=== PATIENT | male | born 1990 | race Caucasian/White ===

== ENCOUNTER 2017-03-04 13:13 | Emergency (ER) | payer MEDICARE ==
--- NOTE | 2017-03-04 13:44 | ER Document Report ---
ED Medical Screen (RME) - General Chief Complaint: Abdominal Pain Stated Complaint: SIDE PAIN/SWELLING Time Seen by Provider: 03/04/17 13:42 Notes: Patient is concerned he may be rejecting his kidney transplant that was performed 18 months ago. He is having some headache and noted swelling of his lower extremities for the past 3 days. He is also noted his blood pressure is somewhat higher than normal for the past week. He was taken care of at the [facility], but recently has moved to this area. He has not had any follow-up by visitor services coordinator since December of this year. He is on 2 rejection medications as well as prednisone. TRAVEL OUTSIDE OF THE [place] IN LAST 30 DAYS: No - Related Data Allergies/Adverse Reactions: No Known Allergies Allergy (Unverified 03/04/17 13:19) Past Medical History - Social History Frequency of alcohol use: Social Drug Abuse: None Renal/ Medical History: Denies: Hx Peritoneal Dialysis Physical Exam - Vital signs Vitals: Temp Pulse Resp BP Pulse Ox 98.0 F 67 20 157/95 H 100 03/04/17 13:19 03/04/17 13:19 03/04/17 13:19 03/04/17 13:19 03/04/17 13:19 Course - Vital Signs Vital signs: Temp Pulse Resp BP Pulse Ox 98.0 F 67 20 157/95 H 100 03/04/17 13:19 03/04/17 13:19 03/04/17 13:19 03/04/17 13:19 03/04/17 13:19
[2017-03-04 14:18] LABS: ABSOLUTE BASOPHILS # (AUTO) 0.1 10^3/uL (0.0-0.2); ABSOLUTE EOSINOPHILS # (AUTO) 0.4 10^3/uL (0.0-0.6); ABSOLUTE LYMPHOCYTES (AUTO) 0.7 10^3/uL (0.5-4.7); ABSOLUTE MONOCYTES (AUTO) 0.7 10^3/uL (0.1-1.4); ABSOLUTE NEUT (AUTO) 3.4 10^3/uL (1.7-8.2); BASOPHILS % (AUTO) 1.5 % (0-2); EOSINOPHILS % (AUTO) 7.6 % (0-6); HEMATOCRIT 39.5 % (37.9-51.0); HEMOGLOBIN 13.5 g/dL (13.5-17.0); LYMPHOCYTES % (AUTO) 13.3 % (13-45); MEAN CORPUSCULAR HEMOGLOBIN 30.7 pg (27.0-33.4); MEAN CORPUSCULAR HGB CONC 34.1 g/dL (32.0-36.0); MEAN CORPUSCULAR VOLUME 90 fl (80-97); MONOCYTES % (AUTO) 13.4 % (3-13); RED BLOOD COUNT 4.38 10^6/uL (4.35-5.55); RED CELL DISTRIBUTION WIDTH 14.7 % (11.5-14.0); SEGMENTED NEUTROPHILS % (AUTO) 64.2 % (42-78); WHITE BLOOD COUNT 5.3 10^3/uL (4.0-10.5)
--- NOTE | 2017-03-04 14:34 | RADIOLOGY REPORT (SQ) ---
EXAM DESCRIPTION: CHEST PA/LAT COMPLETED DATE/TIME: 03/04/2017 2:13 pm REASON FOR STUDY: Hx kidney transplant,? Rejection,? CHF COMPARISON: None. EXAM PARAMETERS: NUMBER OF VIEWS: two views TECHNIQUE: Digital Frontal and Lateral radiographic views of the chest acquired. RADIATION DOSE: NA LIMITATIONS: none FINDINGS: LUNGS AND PLEURA: There is mild interstitial prominence but no kirti edema. MEDIASTINUM AND HILAR STRUCTURES: No masses or contour abnormalities. HEART AND VASCULAR STRUCTURES: Heart normal size. No evidence for failure. BONES: No acute findings. HARDWARE: None in the chest. OTHER: No other significant finding. IMPRESSION: Mild interstitial prominence without kirti pulmonary edema. TECHNICAL DOCUMENTATION: JOB ID: [id number] [employer]- All Rights Reserved
[2017-03-04 14:44] LABS: ALANINE AMINOTRANSFERASE 179 U/L (21-72); ALBUMIN 3.7 g/dL (3.5-5.0); ALKALINE PHOSPHATASE 132 U/L (38-126); ANION GAP 13 (5-19); ASPARTATE AMINO TRANSFERASE 35 U/L (17-59); BILIRUBIN,DIRECT 0.6 mg/dL (0.0-0.4); BILIRUBIN,TOTAL 0.8 mg/dL (0.2-1.3); BLOOD UREA NITROGEN 43 mg/dL (7-20); CALCIUM 8.9 mg/dL (8.4-10.2); CARBON DIOXIDE 19 mmol/L (22-30); CHLORIDE 113 mmol/L (98-107); CREATININE RESULT 6.27 mg/dL (0.52-1.25); GLUCOSE 75 mg/dL (75-110); SODIUM 145.1 mmol/L (137-145); TOTAL PROTEIN 6.4 g/dL (6.3-8.2)
[2017-03-04 15:35] LABS: APPEARANCE,URINE CLEAR; BILIRUBIN,URINE NEGATIVE (NEGATIVE); GLUCOSE, URINE NEGATIVE (NEGATIVE); KETONES,URINE NEGATIVE (NEGATIVE); LEUKOCYTE ESTERASE,URINE NEGATIVE (NEGATIVE); NITRITE,URINE NEGATIVE (NEGATIVE); PROTEIN,URINE 30 mg/dL (NEGATIVE); URINE SPECIFIC GRAVITY 1.005; UROBILINOGEN,URINE NEGATIVE mg/dL (<2.0)
--- NOTE | 2017-03-04 15:42 | ER Document Report ---
ED General - General Chief Complaint: Abdominal Pain Stated Complaint: SIDE PAIN/SWELLING Time Seen by Provider: 03/04/17 13:42 Mode of Arrival: Ambulatory Information source: Patient Notes: 26-year-old male with history of kidney transplant secondary to hypertension 1 year ago presents with complaints of swelling believes she is rejecting his kidney. Patient has been taking medications intermittently over the past month and has not taken any over the past 2 weeks due to financial reasons TRAVEL OUTSIDE OF THE [place] IN LAST 30 DAYS: No - HPI Onset: Last week Onset/Duration: Persistent Quality of pain: No pain Severity: Moderate Pain Level: Denies Associated symptoms: Other Exacerbated by: Denies Relieved by: Denies Similar symptoms previously: No Recently seen / treated by doctor: No - Related Data Allergies/Adverse Reactions: No Known Allergies Allergy (Unverified 03/04/17 13:19) Past Medical History - Social History Smoking Status: Current Every Day Smoker Cigarette use (# per day): Yes Chew tobacco use (# tins/day): No Smoking Education Provided: No Frequency of alcohol use: Social Drug Abuse: None Family History: Reviewed & Not Pertinent Patient has suicidal ideation: No Patient has homicidal ideation: No Renal/ Medical History: Denies: Hx Peritoneal Dialysis Past Surgical History: Reports: Hx Kidney (Renal Surgery) - R transplant Review of Systems - Review of Systems Notes: REVIEW OF SYSTEMS: CONSTITUTIONAL : Denies fever, chills, or sweats. Denies recent illness. EENT: Denies eye, ear, throat, or mouth pain or symptoms. Denies nasal or sinus congestion or discharge. Denies throat, tongue, or mouth swelling or difficulty swallowing. CARDIOVASCULAR: Denies chest pain. Denies palpitations or racing or irregular heart beat. Denies ankle edema. RESPIRATORY: Denies cough, cold, or chest congestion. Denies shortness of breath, difficulty breathing, or wheezing. GASTROINTESTINAL: Admits to abdominal swelling GENITOURINARY: Denies difficulty urinating, painful urination, burning, frequency, blood in urine, or discharge. MUSCULOSKELETAL: Denies back or neck pain or stiffness. Denies joint pain or swelling. SKIN: Denies rash, lesions or sores. HEMATOLOGIC : Denies easy bruising or bleeding. LYMPHATIC: Denies swollen, enlarged glands. NEUROLOGICAL: Denies confusion or altered mental status. Denies passing out or loss of consciousness. Denies dizziness or lightheadedness. Denies headache. Denies weakness or paralysis or loss of use of either side. Denies problems with gait or speech. Denies sensory loss, numbness, or tingling. Denies seizures. PSYCHIATRIC: Denies anxiety or stress. Denies depression, suicidal ideation, or homicidal ideation. ALL OTHER SYSTEMS REVIEWED AND NEGATIVE. Dictation was performed using [employer] voice recognition software PHYSICAL EXAMINATION: GENERAL: Well-appearing, well-nourished and in no acute distress. HEAD: Atraumatic, normocephalic. EYES: Pupils equal round and reactive to light, extraocular movements intact, sclera anicteric, conjunctiva are normal. ENT: Nares patent, oropharynx clear without exudates. Moist mucous membranes. NECK: Normal range of motion, supple without lymphadenopathy LUNGS: Breath sounds clear to auscultation bilaterally and equal. No wheezes rales or rhonchi. HEART: Regular rate and rhythm without murmurs ABDOMEN: Soft, nontender, nondistended abdomen. No guarding, no rebound. No masses appreciated. Musculoskeletal: Normal range of motion, no pitting or edema. No cyanosis. NEUROLOGICAL: Cranial nerves grossly intact. Normal speech, normal gait. Normal sensory, motor exams PSYCH: Normal mood, normal affect. SKIN: Warm, Dry, normal turgor, no rashes or lesions noted. Physical Exam - Vital signs Vitals: Temp Pulse Resp BP Pulse Ox 98.0 F 67 20 157/95 H 100 03/04/17 13:19 03/04/17 13:19 03/04/17 13:19 03/04/17 13:19 03/04/17 13:19 Course - Re-evaluation Re-evalutation: 03/04/17 15:41 [facility] paged , pt creatinine is 6.27 03/04/17 15:42 03/04/17 15:54 Dr Kilgore accepts patient direct or ED to ED if there are no rooms. Defers on being given any medications at this time. 03/04/17 17:37 The flight crew has landed and has been waiting around for approximately 45 minutes now, there is no bed available however I had been promise in ED bed multiple calls have been made to the emergency department physician but he is in the middle of a trauma at the moment has been unable to respond. I fear that we are delaying care and that the patient will lose his transplanted kidney , flight tank crewmember agrees with this assessment they will begin the flight back as it will take 1 hour to reach [place]. They note that the patient's care is more important than waiting at this time. I did attempt personally to speak with the field talent qualification specialist again she is unable to get in touch with ED physician, transfer center has been contacted yet again. I was personally pulled out of anothers patient's code to deal with the situation but I believe this is very important to save the patient's life 03/04/17 18:03 I contacted transfer center again, they will put me in touch with their roofing supervisor, they already know patient is in transport at this time I have requested that they please contact me given my concerns of this transfer, i offered to call the transport back , transfer center states not to 03/04/17 18:07 03/04/17 22:48 I was notified that a room was made available for the patient, and the patient was safely transported to the hospital. - Vital Signs Vital signs: Temp Pulse Resp BP Pulse Ox 98.9 F 95 15 116/45 L 95 03/04/17 17:19 03/04/17 17:19 03/04/17 17:19 03/04/17 17:19 03/04/17 17:19 - Laboratory Result Diagrams: 03/04/17 14:00 03/04/17 14:00 Laboratory results interpreted by me: 03/04/17 03/04/17 03/04/17 14:00 14:00 14:00 RDW 14.7 H Monocytes % 13.4 H Eosinophils % 7.6 H Sodium 145.1 H Chloride 113 H Carbon Dioxide 19 L BUN 43 H Creatinine 6.27 H Est GFR ( Amer) 13 L Est GFR (Non-Af Amer) 11 L Direct Bilirubin 0.6 H ALT 179 H Alkaline Phosphatase 132 H NT-Pro-B Natriuret Pep 3260 H Urine Protein Urine Blood 03/04/17 14:00 RDW Monocytes % Eosinophils % Sodium Chloride Carbon Dioxide BUN Creatinine Est GFR ( Amer) Est GFR (Non-Af Amer) Direct Bilirubin ALT Alkaline Phosphatase NT-Pro-B Natriuret Pep Urine Protein 30 H Urine Blood SMALL H Critical Care Note - Critical Care Note Total time excluding time spent on procedures (mins): 45 Comments: 45 minutes of critical care time spent in direct contact evaluating and reevaluating the patient, treating symptoms, reviewing labs and studies and speaking with family and consultants excluding any procedures Discharge - Discharge Clinical Impression: Kidney transplant failure and rejection Acute renal failure Qualifiers: Acute renal failure type: unspecified Qualified Code(s): N17.9 - Acute kidney failure, unspecified Condition: Fair Disposition: [place]
[2017-03-04 17:44] VITALS: BP 116/45
== END 2017-03-04 17:48 | disposition short-term general hospital (02) ==
LOC: ER 13:13
DX: T86.11 Kidney transplant rejection (principal); R10.9 Unspecified abdominal pain; N17.9 Acute kidney failure, unspecified; F17.210 Nicotine dependence, cigarettes, uncomplicated
CPT/HCPCS: 36415; 71020; 80053; 81001; 83880; 85025; 99291

== ENCOUNTER 2017-05-24 10:43 | Emergency (ER) | payer MEDICARE ==
[2017-05-24] MEDS ORDERED: LORAZEPAM INJ 2 MG/1 ML VIAL ONE ×2 (10:58→11:25)
[2017-05-24] MEDS ORDERED: LORAZEPAM INJ 2 MG/1 ML VIAL IV ONE ×3 (11:03→11:22)
--- NOTE | 2017-05-24 11:11 | ER Document Report ---
ED Seizure - General Mode of Arrival: Medic Information source: Emergency Med Personnel <MARYANN ROGERS - Last Filed: 05/24/17 13:16> <RENE ESCALANTE - Last Filed: 05/24/17 18:48> - General Stated Complaint: POSSIBLE SEIZURE Time Seen by Provider: 05/24/17 11:01 Notes: Patient is a 26 year old male with a history of epilepsy presents to the emergency department via EMS after having a witnessed seizure by family onset prior to arrival. EMS states they witnessed two seizures within the patient prior to arrival lasting around five minutes which they described as violent. EMS states in between his seizures he complained of headache and stated he does not want to come to the ED. EMS states the patient also has a history of dialysis although he no longer needs it. EMS states they gave the patient 5 Haldol IM, 50 Benadryl, and 5 Versed IM. Patient at bedside is combative and under restraints. Patient is also noncompliant with his medications or treatments. (MARYANN ROGERS) - Related Data Allergies/Adverse Reactions: No Known Allergies Allergy (Verified 05/24/17 10:52) Past Medical History - General Information source: Emergency Med Personnel Cannot obtain history due to: Other - Social History Smoking Status: Unknown if Ever Smoked Frequency of alcohol use: Heavy Drug Abuse: Marijuana Family History: Reviewed & Not Pertinent Past Surgical History: Reports: Hx Kidney (Renal Surgery) - R transplant <MARYANN ROGERS - Last Filed: 05/24/17 13:16> Review of Systems - Review of Systems -: Yes ROS unobtainable due to patient's medical condition <MARYANN ROGERS - Last Filed: 05/24/17 13:16> Physical Exam <MARYANN ROGERS - Last Filed: 05/24/17 13:16> <RENE ESCALANTE - Last Filed: 05/24/17 18:48> - Vital signs Vitals: Resp Pulse Ox 32 H 95 05/24/17 10:53 05/24/17 10:53 - Notes Notes: GENERAL: Alert, capable of following some commands although combative and restrained by [employer] and bed restraints. Appears disoriented. HEAD: Normocephalic, atraumatic. No evidence of facial droop. EYES: Pupils equal, round, and reactive to light. Extraocular movements intact. ENT: Oral mucosa moist, tongue midline. NECK: Full range of motion. Supple. Trachea midline. LUNGS: Clear to auscultation bilaterally, no wheezes, rales, or rhonchi. No respiratory distress. HEART: Tachycardic. No murmurs, gallops, or rubs. ABDOMEN: Soft, non-tender. Non-distended. Bowel sounds present in all 4 quadrants. EXTREMITIES: LUE thrill palpated. Abrasions to 3rd finger, dorsal aspect of right hand. Moves all 4 extremities spontaneously. No edema, radial and dorsalis pedis pulses 2/4 bilaterally. NEUROLOGICAL: Follows some commands, will open eyes in response to hearing his name. PSYCH: Combative, placed under restraints. SKIN: Warm, dry, normal turgor. Mildly diaphoretic. (MARYANN ROGERS) Course - Laboratory Result Diagrams: 05/24/17 10:55 05/24/17 10:55 <MARYANN ROGERS - Last Filed: 05/24/17 13:16> - Laboratory Result Diagrams: 05/24/17 10:55 05/24/17 10:55 <RENE ESCALANTE - Last Filed: 05/24/17 18:48> - Re-evaluation Re-evalutation: 05/24/17 14:26 CBC shows slight low white count at 3.9 and a monocytosis otherwise unremarkable , CMP shows low CO2 at 14 and elevated creatinine 1.58, this can be consistent with dehydration, he will be hydrated, AST and ALT are both somewhat elevated consistent with history of hepatitis C, cardiac enzymes negative, salicylates, acetaminophen and alcohol are all undetectable, CT scan of the head is negative for any acute process. Patient required several doses of Ativan to calm him down. Patient is no longer combative and postictal, patient was able to be taken out of his restraints. Patient was able to cooperate for the EKG with the exception of leaving lead aVL in place. Patient is now lying in his bed, covering his head with a blanket when I try to talk to him, rolling over and moving all 4 extremities equally and without any acute distress. does reveal that they have both been using kratom to try and treat some of his anxiety symptoms. Reveals that both he and his sister use the same type of kratom yesterday and she had a grand mal seizure this morning as did he. Patient does have a history of seizures, last seizure was 4 years ago. Also admits that he is noncompliant with both his seizure medications and his transplant medications. Patient and are encouraged not to use kratom or any other supplements anymore as it will threatened his kidney transplant. Patient is to follow-up with a primary care physician as well as with his transplant team as an outpatient. Patient is still quite sleepy right now after medications, when he is more awake and able to ambulate on his own he will be discharged home. 05/24/17 15:36 Patient was able to stand and walk to the restroom, he is neurologically intact , patient will be discharged to home. 05/24/17 15:37 05/24/17 18:47 (RENE ESCALANTE) - Vital Signs Vital signs: Temp Pulse Resp BP Pulse Ox 98.6 F 76 21 H 129/78 H 100 05/24/17 15:45 05/24/17 15:45 05/24/17 13:00 05/24/17 15:45 05/24/17 15:45 - Laboratory Laboratory results interpreted by me: 05/24/17 05/24/17 05/24/17 10:55 10:55 10:55 WBC 3.9 L RDW 15.7 H Monocytes % (Manual) 15 H Chloride 114 H Carbon Dioxide 14 L Creatinine 1.58 H Est GFR (Non-Af Amer) 52 L Glucose 127 H Calcium 10.9 H Direct Bilirubin 0.5 H AST 80 H ALT 150 H Creatine Kinase 267 H Salicylates < 1.0 L Acetaminophen < 10 L - EKG Interpretation by Me Additional EKG results interpreted by me: 05/24/17 15:37 EKG shows sinus rhythm at a rate of 71, LVH with ST segment elevations in V2 through the 4, no reciprocal changes, patient removed lead aVL and would not allow to be replaced. Normal intervals per my interpretation. (RENE ESCALANTE) Discharge <MARYANN ROGERS - Last Filed: 05/24/17 13:16> <RENE ESCALANTE - Last Filed: 05/24/17 18:48> - Discharge Clinical Impression: Seizure, Medication side effect, Noncompliance with medication regimen, Kidney transplant recipient, Dehydration Condition: Stable Disposition: HOME, SELF-CARE Additional Instructions: Please stop using Kratom. Please stop using all supplements that are not directly approved by your primary care physician or transplant team. It is very important that you are compliant with your seizure medications and your transplant medications. Today you had a very small amount of renal failure. This is likely due to dehydration from the seizures. We did give you plenty of fluid and this should clear up the renal failure however it is very important that you have your kidney function rechecked in approximately 1 week and that you follow-up with your senior software test engineer or transplant team. Referrals: Sofie GOLDEN MD [ACTIVE STAFF] - Follow up in 1 week Scribe Attestation: 05/24/17 18:48 I personally performed the services described in the documentation, reviewed and edited the documentation which was dictated to the scribe in my presence, and it accurately records my words and actions. (RENE ESCALANTE) Scribe Documentation - Scribe Written by Torie:: Torie Hi, 05/24/2017 11:17 acting as scribe for :: Rossi <MARYANN ROGERS - Last Filed: 05/24/17 13:16>
[2017-05-24 11:35] LABS: ACETAMINOPHEN < 10 ug/mL (10-30); ALCOHOL < 10 mg/dL (NONE DETECTED); SALICYLATE < 1.0 mg/dL (2.0-20.0)
--- NOTE | 2017-05-24 11:43 | RADIOLOGY REPORT (SQ) ---
EXAM DESCRIPTION: CT HEAD WITHOUT COMPLETED DATE/TIME: 05/24/2017 11:27 am REASON FOR STUDY: s/s of possibe stroke. COMPARISON: None. TECHNIQUE: Axial images acquired through the brain without intravenous contrast. Images reviewed wi th bone, brain and subdural windows. Images stored on PACS. All CT scanners at this facility use dose modulation, iterative reconstruction, and/or weight based d osing when appropriate to reduce radiation dose to as low as reasonably achievable (ALARA). [facility]: Dose Right [facility]: CareDose [facility]: Dose Right [facility]: Teradose 4D [facility]: Spark Mobile RADIATION DOSE: CT Rad equipment meets quality standard of care and radiation dose reduction techniq ues were employed. CTDIvol: 64.6 mGy. DLP: 1163 mGy-cm. mGy. LIMITATIONS: None. FINDINGS: VENTRICLES: Normal size and contour. CEREBRUM: No masses. No hemorrhage. No midline shift. No evidence for acute infarction. Normal gra y/white matter differentiation. No areas of low density in the white matter. CEREBELLUM: No masses. No hemorrhage. No alteration of density. No evidence for acute infarction. EXTRAAXIAL SPACES: No fluid collections. No masses. ORBITS AND GLOBE: No intra- or extraconal masses. Normal contour of globe without masses. CALVARIUM: No fracture. PARANASAL SINUSES: No fluid or mucosal thickening. SOFT TISSUES: No mass or hematoma. OTHER: No other significant finding. IMPRESSION: NORMAL BRAIN CT WITHOUT CONTRAST. EVIDENCE OF ACUTE STROKE: NO. COMMENT: Report called to Joaquina at [facility] at time study. Quality ID # [id number]: Final reports with documentation of one or more dose reduction techniques (e.g., Au tomated exposure control, adjustment of the mA and/or kV according to patient size, use of iterative reconstruction technique) TECHNICAL DOCUMENTATION: JOB ID: [id number] [employer] All Rights Reserved
[2017-05-24] MEDS ORDERED: NORMAL SALINE 1000 ML 1,000 ML IV ONE (13:08)
[2017-05-24 13:21] LABS: HEMATOCRIT 43.1 % (37.9-51.0); HEMOGLOBIN 14.5 g/dL (13.5-17.0); MEAN CORPUSCULAR HEMOGLOBIN 32.8 pg (27.0-33.4); MEAN CORPUSCULAR HGB CONC 33.7 g/dL (32.0-36.0); MEAN CORPUSCULAR VOLUME 97 fl (80-97); PLATELET COUNT 156 10^3/uL (150-450); RED BLOOD COUNT 4.43 10^6/uL (4.35-5.55); RED CELL DISTRIBUTION WIDTH 15.7 % (11.5-14.0); WHITE BLOOD COUNT 3.9 10^3/uL (4.0-10.5)
[2017-05-24 13:40] LABS: ALANINE AMINOTRANSFERASE 150 U/L (21-72); ALBUMIN 4.5 g/dL (3.5-5.0); ALKALINE PHOSPHATASE 55 U/L (38-126); ANION GAP 16 (5-19); ASPARTATE AMINO TRANSFERASE 80 U/L (17-59); BILIRUBIN,DIRECT 0.5 mg/dL (0.0-0.4); BILIRUBIN,TOTAL 0.5 mg/dL (0.2-1.3); BLOOD UREA NITROGEN 14 mg/dL (7-20); CALCIUM 10.9 mg/dL (8.4-10.2); CARBON DIOXIDE 14 mmol/L (22-30); CHLORIDE 114 mmol/L (98-107); CREATINE KINASE 267 U/L (55-170); GLUCOSE 127 mg/dL (75-110); POTASSIUM 4.6 mmol/L (3.6-5.0); SODIUM 144.3 mmol/L (137-145); TOTAL PROTEIN 6.8 g/dL (6.3-8.2)
[2017-05-24 13:49] LABS: ABSOLUTE LYMPHOCYTES# (MANUAL) 0.5 10^3/uL (0.5-4.7); ABSOLUTE MONOCYTES # (MANUAL) 0.6 10^3/uL (0.1-1.4); ABSOLUTE NEUTROPHILS# (MANUAL) 2.7 10^3/uL (1.7-8.2); BASOPHILS % (MANUAL) 0 % (0-2); EOSINOPHILS % (MANUAL) 4 % (0-6); LYMPHOCYTES % (MANUAL) 13 % (13-45); MONOCYTES % (MANUAL) 15 % (3-13); SEGMENTED NEUTROPHILS % (MAN) 68 % (42-78); TOTAL CELLS COUNTED 100
[2017-05-24 13:50] LABS: ANISOCYTOSIS SLIGHT
[2017-05-24 13:51] LABS: PLATELET COMMENT ADEQUATE; TOXIC GRANULATION SLIGHT
[2017-05-24 13:52] LABS: CREATINE KINASE MB 2.02 ng/mL (<4.55)
[2017-05-24 13:53] LABS: TROPONIN I < 0.012 ng/mL
[2017-05-24] MEDS ORDERED: RINGERS SOLUTION,LACTATED 1,000 ML IV ONE (14:02)
[2017-05-24 15:47] VITALS: BP 129/78
--- NOTE | 2017-05-25 09:26 | EKG REPORT ---
SEVERITY:- OTHERWISE NORMAL ECG - SINUS RHYTHM ST ELEV, PROBABLE NORMAL EARLY REPOL PATTERN TALL T WAVES, PROBABLY NORMAL VARIANT : Confirmed by: Gerda Talamantes 25-May-2017 09:26:34
== END 2017-05-24 15:52 | disposition home or self-care (01) ==
LOC: ER 10:43
DX: G40.909 Epilepsy, unspecified, not intractable, without status epilepticus (principal); Z91.14 Patient's other noncompliance with medication regimen; F19.90 Other psychoactive substance use, unspecified, uncomplicated; E86.0 Dehydration; F12.10 Cannabis abuse, uncomplicated; R61 Generalized hyperhidrosis; R00.0 Tachycardia, unspecified; D72.821 Monocytosis (symptomatic); S60.412A Abrasion of right middle finger, initial encounter; X58.XXXA Exposure to other specified factors, initial encounter; Z94.0 Kidney transplant status; Z78.1 Physical restraint status
CPT/HCPCS: 93005; 99285; 96361; 96374; 36415; 82553; 80307 ×3; 82550; 85025; 80053; 84484; 70450; 93010; J2060; J7030; J7120

== ENCOUNTER 2017-08-08 15:39 | Emergency (ER) | payer MEDICARE ==
[2017-08-08] MEDS ORDERED: NORMAL SALINE 1000 ML 1,000 ML IV ONE ×2 (15:54→20:07)
[2017-08-08 16:43] LABS: HEMATOCRIT 45.6 % (37.9-51.0); MEAN CORPUSCULAR HEMOGLOBIN 32.9 pg (27.0-33.4); MEAN CORPUSCULAR HGB CONC 35.1 g/dL (32.0-36.0); MEAN CORPUSCULAR VOLUME 94 fl (80-97); PLATELET COUNT 166 10^3/uL (150-450); RED BLOOD COUNT 4.85 10^6/uL (4.35-5.55); RED CELL DISTRIBUTION WIDTH 12.7 % (11.5-14.0); WHITE BLOOD COUNT 1.9 10^3/uL (4.0-10.5)
[2017-08-08 17:06] LABS: ALANINE AMINOTRANSFERASE 276 U/L (21-72); ALBUMIN 4.1 g/dL (3.5-5.0); ALKALINE PHOSPHATASE 53 U/L (38-126); ANION GAP 13 (5-19); ASPARTATE AMINO TRANSFERASE 154 U/L (17-59); BILIRUBIN,DIRECT 0.4 mg/dL (0.0-0.4); BILIRUBIN,TOTAL 0.9 mg/dL (0.2-1.3); BLOOD UREA NITROGEN 26 mg/dL (7-20); CALCIUM 10.8 mg/dL (8.4-10.2); CARBON DIOXIDE 26 mmol/L (22-30); CHLORIDE 102 mmol/L (98-107); GLUCOSE 125 mg/dL (75-110); LIPASE 84.2 U/L (23-300); POTASSIUM 4.1 mmol/L (3.6-5.0); SODIUM 141.3 mmol/L (137-145); TOTAL PROTEIN 6.5 g/dL (6.3-8.2)
[2017-08-08 17:13] LABS: ABSOLUTE LYMPHOCYTES# (MANUAL) 0.1 10^3/uL (0.5-4.7); ABSOLUTE MONOCYTES # (MANUAL) 0.3 10^3/uL (0.1-1.4); ABSOLUTE NEUTROPHILS# (MANUAL) 1.5 10^3/uL (1.7-8.2); BASOPHILS % (MANUAL) 0 % (0-2); EOSINOPHILS % (MANUAL) 2 % (0-6); LYMPHOCYTES % (MANUAL) 4 % (13-45); MONOCYTES % (MANUAL) 14 % (3-13); SEGMENTED NEUTROPHILS % (MAN) 80 % (42-78); TOTAL CELLS COUNTED 50
[2017-08-08 17:14] LABS: PLATELET COMMENT ADEQUATE; RBC MORPHOLOGY COMMENT NORMO-CYTIC/CHROMIC; TOXIC GRANULATION SLIGHT
[2017-08-08 17:18] LABS: ACETAMINOPHEN < 10 ug/mL (10-30); ALCOHOL < 10 mg/dL (NONE DETECTED); SALICYLATE < 1.0 mg/dL (2.0-20.0)
[2017-08-08 18:31] LABS: APPEARANCE,URINE SLIGHTLY-CLOUDY; BILIRUBIN,URINE NEGATIVE (NEGATIVE); COLOR,URINE YELLOW; GLUCOSE, URINE NEGATIVE (NEGATIVE); KETONES,URINE NEGATIVE (NEGATIVE); LEUKOCYTE ESTERASE,URINE NEGATIVE (NEGATIVE); NITRITE,URINE NEGATIVE (NEGATIVE); PROTEIN,URINE 100 mg/dL (NEGATIVE); URINE SPECIFIC GRAVITY 1.015; UROBILINOGEN,URINE NEGATIVE mg/dL (<2.0)
[2017-08-08 18:52] LABS: URINE AMPHETAMINES SCREEN NEGATIVE; URINE BARBITURATES SCREEN NEGATIVE; URINE BENZODIAZEPINES SCREEN UNCONFIRMED POSITIVE; URINE COCAINE SCREEN NEGATIVE; URINE MARIJUANA (THC) SCREEN UNCONFIRMED POSITIVE; URINE METHADONE SCREEN NEGATIVE; URINE PHENCYCLIDINE SCREEN NEGATIVE
[2017-08-08] MEDS ORDERED: LORAZEPAM INJ 2 MG/1 ML VIAL IV ONE ×2 (18:59→19:11)
[2017-08-08] MEDS ORDERED: LORAZEPAM INJ 2 MG/1 ML VIAL ONE (18:59)
[2017-08-08] MEDS ORDERED: DIPHENHYDRAMINE HCL 50 MG/ML VIAL ONE (19:01)
[2017-08-08] MEDS ORDERED: HALOPERIDOL LACTATE INJ 5 MG/1 ML VIAL ONE (19:04)
[2017-08-08] MEDS ORDERED: DIPHENHYDRAMINE HCL 50 MG/ML VIAL IV ONE (19:10)
[2017-08-08] MEDS ORDERED: HALOPERIDOL LACTATE INJ 5 MG/1 ML VIAL IM ONE (19:10)
[2017-08-08] MEDS ORDERED: LEVETIRACETAM 1000 MG/NACL-ISO 1,000 MG/100 ML RTUPB IV ONE (19:17)
--- NOTE | 2017-08-08 19:20 | ER Document Report ---
ED General - General Chief Complaint: Probable Seizure Stated Complaint: POSSIBLE SEIZURE Time Seen by Provider: 08/08/17 15:43 TRAVEL OUTSIDE OF THE U.S. IN LAST 30 DAYS: No - HPI Patient complains to provider of: Seizure disorder Notes: Patient coming in via EMS for seizure disorder. Patient has a history of seizures and a renal transplant. According to EMS they were called earlier today for seizure at that time patient ANO 3 declined transport they were called back to the patient's resident for another seizure 20 minutes later this time patient ANO 2 was unable to give his 's name because he remained confused patient was transported to [facility] for further evaluation patient became combative and had to be sedated with Versed Benadryl and Haldol. Upon my evaluation patient is lying on his left side sedated but is arousable to voice and will follow commands. Patient moving all 4 extremities. Patient denies any pain at this time. - Related Data Allergies/Adverse Reactions: No Known Allergies Allergy (Verified 08/09/17 07:21) Past Medical History - Social History Smoking Status: Unknown if Ever Smoked Family History: Reviewed & Not Pertinent Patient has suicidal ideation: No Patient has homicidal ideation: No - Past Medical History Cardiac Medical History: Reports: Hx Hypertension Neurological Medical History: Reports: Hx Seizures Renal/ Medical History: Denies: Hx Peritoneal Dialysis Past Surgical History: Reports: Hx Kidney (Renal Surgery) - R transplant Review of Systems - Review of Systems Constitutional: No symptoms reported EENT: No symptoms reported Cardiovascular: No symptoms reported Respiratory: No symptoms reported Gastrointestinal: No symptoms reported Genitourinary: No symptoms reported Male Genitourinary: No symptoms reported Musculoskeletal: No symptoms reported Skin: No symptoms reported Hematologic/Lymphatic: No symptoms reported Neurological/Psychological: Seizure -: Yes All other systems reviewed and negative Physical Exam - Vital signs Vitals: Temp Resp 98.0 F 22 H 08/08/17 15:53 08/08/17 15:53 Interpretation: Normal - General General appearance: Appears well, Other - Sedated arousable to voice - HEENT Head: Normocephalic, Atraumatic Eyes: Normal Pupils: PERRL - Respiratory Respiratory status: No respiratory distress Chest status: Nontender Breath sounds: Normal Chest palpation: Normal - Cardiovascular Rhythm: Regular Heart sounds: Normal auscultation Murmur: No - Abdominal Inspection: Normal Distension: No distension Bowel sounds: Normal Tenderness: Nontender Organomegaly: No organomegaly - Back Back: Normal, Nontender - Extremities General upper extremity: Normal inspection, Nontender, Normal color, Normal ROM , Normal temperature General lower extremity: Normal inspection, Nontender, Normal color, Normal ROM , Normal temperature, Normal weight bearing. No: Michelle's sign - Neurological Neuro grossly intact: Yes Cognition: Normal Anel Coma Scale Eye Opening: Spontaneous Anel Coma Scale Verbal: Oriented [place] Coma Scale Motor: Obeys Commands [place] Coma Scale Total: 15 Speech: Normal Motor strength normal: LUE, RUE, LLE, RLE Sensory: Normal - Skin Skin Temperature: Warm Skin Moisture: Dry Skin Color: Normal Course - Re-evaluation Re-evalutation: 08/08/17 19:18 currently at bedside states patient has not had significant seizure history for approximately 4 years. Patient was originally on Dilantin for his seizure control. Patient has not had any medication for 4 years. Patient was recently seen approximate 2 months ago for seizure activity also that time after his postictal phase was combative requiring Ativan. According to note after a period of observation return to his normal mental state was able to be discharged. states no recent changes to any of his medications currently are working with multiple facilities to obtain medical care. Patient had his renal transplant in [place] has been followed at [facility] is currently trying to establish care at [facility]. Patient is now more arousable and able to follow commands. expressed concern about a rash of the patient's right hip which I did review nonspecific red taylor of the right hip states was better with nystatin cream. is questioning when they will be able to leave the explained that further observation was to patient is back to his normal state can eat and ambulate that I will discharge patient. Shortly after this called into the patient's room as he was having active seizure. Patient was supported patient was given 2 of Ativan however after his seizure activity became very combative requiring 4 point restraints. Patient was given 50 Benadryl 5 of Haldol and another 4 of Ativan. At this time will order CT of the head. Explained to the that at this time more likely looking at to transfer the patient to [facility] 08/08/17 20:41 Discussing with the at bedside. Patient CT scan is negative for any acute pathology. is now requesting that we initially try to transfer the patient to [facility]. 08/08/17 22:22 Discussed with neurology at [facility] Dr. Rollins and hospitalist advised that . Agrees with current treatment plan patient has been accepted for transfer. Understanding concern patient seizure activity with neutropenia more likely due to his antirejection medications. Patient does remain sedated however is arousable to voice. Patient remains afebrile vital signs remain normal. states the understanding that the transfer time can be 36-48 hours still states that she does not want to contact any other facilities understands that the patient will only be monitored here in the ER. I have given the patient a dose of Keppra. 08/10/17 09:29 Patient has been observed now for over 48 hours here in ER with no further seizure activity. Upon my evaluation today patient smiling at the eager to be discharged. Have consulted with his neurologist and they have established a follow-up appointment. Patient is to continue on his Keppra will do 500 mg twice daily. I feel at this time with normal vital signs patient is otherwise safe to be discharged to his place of residence as that he has had 48 hours of intense observation here in the emergency room with no other significant events. - Vital Signs Vital signs: Temp Pulse Resp BP Pulse Ox 98.4 F 16 129/76 H 99 08/10/17 06:04 08/10/17 08:29 08/10/17 07:01 08/10/17 07:01 - Laboratory Result Diagrams: 08/08/17 16:13 08/08/17 16:13 Laboratory results interpreted by me: 08/08/17 08/08/17 08/08/17 16:13 16:13 16:13 WBC 1.9 L Seg Neuts % (Manual) 80 H Lymphocytes % (Manual) 4 L Monocytes % (Manual) 14 H Abs Neuts (Manual) 1.5 L Abs Lymphs (Manual) 0.1 L BUN 26 H Creatinine 1.46 H Est GFR (Non-Af Amer) 57 L Glucose 125 H Calcium 10.8 H Magnesium 2.9 H AST 154 H ALT 276 H Urine Protein Urine Blood Salicylates < 1.0 L Acetaminophen < 10 L 08/08/17 18:15 WBC Seg Neuts % (Manual) Lymphocytes % (Manual) Monocytes % (Manual) Abs Neuts (Manual) Abs Lymphs (Manual) BUN Creatinine Est GFR (Non-Af Amer) Glucose Calcium Magnesium AST ALT Urine Protein 100 H Urine Blood MODERATE H Salicylates Acetaminophen Critical Care Note - Critical Care Note Total time excluding time spent on procedures (mins): 35 Comments: Multiple evaluation patient having seizure disorder renal transplant neutropenia [facility] Discharge - Discharge Clinical Impression: Seizure, Renal transplant, status post Neutropenia Qualifiers: Neutropenia type: unspecified Qualified Code(s): D70.9 - Neutropenia, unspecified Disposition: HOME, SELF-CARE Instructions: Seizure, Known Epileptic ([facility]) Additional Instructions: Please take medications as prescribed. Please make sure you eat a healthy diet continue all activities at home. Please avoid any alcohol or other illicit substances as this will increase her chance of having another seizure. Return to the ER for any concerns. Make sure he follow-up with all of your primary care physician appointments. Prescriptions: Levetiracetam [Keppra 500 mg Tablet] 500 mg PO Q12 #30 tablet Forms: Parent Work Note, Return to Work
--- NOTE | 2017-08-08 20:14 | RADIOLOGY REPORT (SQ) ---
EXAM DESCRIPTION: CT HEAD WITHOUT COMPLETED DATE/TIME: 08/08/2017 7:50 pm REASON FOR STUDY: seizure COMPARISON: None. TECHNIQUE: Axial images acquired through the brain without intravenous contrast. Images reviewed wi th bone, brain and subdural windows. Additional sagittal and coronal reconstructions were generated. Images stored on PACS. All CT scanners at this facility use dose modulation, iterative reconstruction, and/or weight based d osing when appropriate to reduce radiation dose to as low as reasonably achievable (ALARA). [facility]: Dose Right [facility]: CareDose [facility]: Dose Right [facility]: Teradose 4D [facility]: Smart The [employer] Hotline RADIATION DOSE: CT Rad equipment meets quality standard of care and radiation dose reduction techniq ues were employed. CTDIvol: 53.2 mGy. DLP: 1070 mGy-cm. mGy. LIMITATIONS: None. FINDINGS: VENTRICLES: Normal size and contour. CEREBRUM: No masses. No hemorrhage. No midline shift. No evidence for acute infarction. Normal gra y/white matter differentiation. No areas of low density in the white matter. CEREBELLUM: No masses. No hemorrhage. No alteration of density. No evidence for acute infarction. EXTRAAXIAL SPACES: No fluid collections. No masses. ORBITS AND GLOBE: No intra- or extraconal masses. Normal contour of globe without masses. CALVARIUM: No fracture. PARANASAL SINUSES: The right mucosal thickening. SOFT TISSUES: No mass or hematoma. OTHER: No other significant finding. IMPRESSION: NORMAL BRAIN CT WITHOUT CONTRAST. EVIDENCE OF ACUTE STROKE: NO. COMMENT: Quality ID # [id number]: Final reports with documentation of one or more dose reduction techniques (e.g., Automated exposure control, adjustment of the mA and/or kV according to patient size, use of iterative reconstruction technique) TECHNICAL DOCUMENTATION: JOB ID: [id number] [employer]- All Rights Reserved Reading location - IP/workstation name: [email or web address]
--- NOTE | 2017-08-08 22:24 | EKG REPORT ---
SEVERITY:- ABNORMAL ECG - SINUS RHYTHM NONSPECIFIC INTRAVENTRICULAR CONDUCTION DELAY : Confirmed by: Gerda Talamantes 08-Aug-2017 22:24:23
[2017-08-09] MEDS ORDERED: LEVETIRACETAM 500 MG/NACL-ISO 500 MG/100 ML RTUPB IV ONE (09:43)
--- NOTE | 2017-08-09 10:19 | ER Document Report ---
Doctor's Note Notes: 08/09/17 10:15 This is a 26-year-old man with a history of end-stage renal disease status post renal transplant ([facility] approximately 2 years ago), seizure disorder. Patient relocated to the area 6 months ago. Patient was hospitalized (as per family member) at [facility] for rejection. Patient' s sister (who is at the bedside) states that the patient was taken off of the seizure medicine at that time because of concerns of interaction with the renal medicines. So patient has been off of antiepileptics for the past month. He was brought to the emergency room yesterday after 2-3 seizures. Patient was loaded with Keppra. And the patient is currently awaiting transfer to [facility] in [place]. Currently, there are no beds in [place] and the estimated wait is 36-48 hours from early this morning. I have discussed this with both the patient's (who is currently at work) and the sister at the bedside. I have offered to call other hospitals but they have asked me not to because they want to "stay local". I have notified the patient's ([phone]) to bring to the ER all the patient's known medicines and dosages. The plan will be to continue the Keppra. I had the bring in his medicines and we will continue those. 08/09/17 17:04 On repeat evaluation, the patient is easily arousable and is oriented. He does appear lethargic and states he has been working a lot and had not gotten much sleep for the past few days. This may be a contributing factor to his multiple seizures. As we wait for transfer to [facility], we will continue to observe the patient for any further seizure activity. 08/09/17 17:05 08/09/17 18:31 The patient's current medical regimen is: Valganciclovir 450 mg BID (patient has his own in the room) NaHCO3 650 mg TID Ranitidine 150 mg BID MyFortic 450 mg BID (patient has his own in the room) Prednisone 10 mg QD Prograf 4 mg in the am Prograf 3 mg in the evening Amlodipine 10 mg daily Keppra 500 mg BID (started in the ER) Note: While the patient has been sleeping most of the day (he reports having several days with not being able to sleep), he remains easily arousable which appears much improved since last night.
[2017-08-09] MEDS ORDERED: PREDNISONE 10 MG TABLET PO SCH (13:00)
[2017-08-09] MEDS: TACROLIMUS ANHYDROUS 1 MG CAPSULE PO SCH (13:47)
[2017-08-09] MEDS: RANITIDINE HCL SYRUP 150 MG/10 ML UDCUP PO SCH (13:48)
[2017-08-09] MEDS: SODIUM BICARBONATE 650 MG TABLET PO SCH (13:49)
[2017-08-09] MEDS ORDERED: PREDNISONE 10 MG TABLET PO ONE (14:15)
[2017-08-09] MEDS ORDERED: LEVETIRACETAM 500 MG TABLET PO SCH (18:00)
[2017-08-09] MEDS ORDERED: TACROLIMUS ANHYDROUS 1 MG CAPSULE PO SCH ×2 (18:00→22:00)
[2017-08-09] MEDS: LEVETIRACETAM 500 MG TABLET PO SCH (22:40)
--- NOTE | 2017-08-10 05:14 | ER Document Report ---
Doctor's Note Notes: 08/10/17 05:13 Patient is still awaiting bed at [facility]. Resting comfortably. Vitals are stable.
[2017-08-10] MEDS: SODIUM BICARBONATE 650 MG TABLET PO SCH (08:52)
[2017-08-10] MEDS: RANITIDINE HCL SYRUP 150 MG/10 ML UDCUP PO SCH (08:52)
[2017-08-10] MEDS: TACROLIMUS ANHYDROUS 1 MG CAPSULE PO SCH (08:52)
[2017-08-10] MEDS: LEVETIRACETAM 500 MG TABLET PO SCH (09:33)
[2017-08-10 10:12] VITALS: BP 132/90
== END 2017-08-10 10:12 | disposition home or self-care (01) ==
LOC: ER 15:39
DX: G40.909 Epilepsy, unspecified, not intractable, without status epilepticus (principal); D70.9 Neutropenia, unspecified; R21 Rash and other nonspecific skin eruption; Z94.0 Kidney transplant status; I10 Essential (primary) hypertension; Z78.1 Physical restraint status
CPT/HCPCS: 93005; 99291; 96372; 96361; 96375; 96365; 36415; 87086; 80307 ×4; 83690; 83735; 85025; 80053; 81001; 70450; 93010; J1200; J1630; J2060; A9270 ×5; J7030; J1953 ×2; J3490; J7507; J7512

== ENCOUNTER → 2017-08-15 | Outpatient (CLI) | payer MEDICARE ==
[2017-08-15 11:02] LABS: HEMATOCRIT 44.4 % (37.9-51.0); HEMOGLOBIN 15.4 g/dL (13.5-17.0); MEAN CORPUSCULAR HEMOGLOBIN 32.5 pg (27.0-33.4); MEAN CORPUSCULAR HGB CONC 34.7 g/dL (32.0-36.0); MEAN CORPUSCULAR VOLUME 94 fl (80-97); PLATELET COUNT 146 10^3/uL (150-450); RED BLOOD COUNT 4.74 10^6/uL (4.35-5.55); WHITE BLOOD COUNT 2.8 10^3/uL (4.0-10.5)
[2017-08-15 11:08] LABS: APPEARANCE,URINE CLEAR; BILIRUBIN,URINE NEGATIVE (NEGATIVE); COLOR,URINE YELLOW; GLUCOSE, URINE NEGATIVE (NEGATIVE); KETONES,URINE NEGATIVE (NEGATIVE); LEUKOCYTE ESTERASE,URINE NEGATIVE (NEGATIVE); NITRITE,URINE NEGATIVE (NEGATIVE); PROTEIN,URINE 30 mg/dL (NEGATIVE); URINE SPECIFIC GRAVITY 1.012; UROBILINOGEN,URINE NEGATIVE mg/dL (<2.0)
[2017-08-15 11:35] LABS: ANION GAP 11 (5-19); BLOOD UREA NITROGEN 19 mg/dL (7-20); CALCIUM 10.2 mg/dL (8.4-10.2); CARBON DIOXIDE 26 mmol/L (22-30); CHLORIDE 105 mmol/L (98-107); GLUCOSE 129 mg/dL (75-110); POTASSIUM 4.4 mmol/L (3.6-5.0); SODIUM 142.2 mmol/L (137-145)
[2017-08-15 11:37] LABS: URINE CREATININE 126.5 mg/dL (24-392)
--- NOTE | 2017-08-16 13:23 | RADIOLOGY REPORT (SQ) ---
EXAM DESCRIPTION: CHEST 2 VIEWS COMPLETED DATE/TIME: 08/15/2017 11:28 am REASON FOR STUDY: COUGH/KIDNEY REPLACED BY TRANSPLANT R05 COUGH Z94.0 KIDNEY TRANSPLANT STATUS COMPARISON: 03/04/2017 NUMBER OF VIEWS: Two view. TECHNIQUE: Frontal and lateral radiographic views of the chest acquired. LIMITATIONS: None. FINDINGS: LUNGS AND PLEURA: Stable mild interstitial prominence in the lungs. No acute pulmonary c onsolidation. No pneumothorax or pleural effusion. MEDIASTINUM AND HILAR STRUCTURES: No masses. No contour abnormalities. HEART AND VASCULAR STRUCTURES: Heart normal in size and contour. No evidence for failure. BONES: No acute findings. HARDWARE: None in the chest. OTHER: No other significant finding. IMPRESSION: 1 No significant interval changes since the prior examination dated 03/04/2017. Stable mild interstitial prominence in the lungs. No acute findings. TECHNICAL DOCUMENTATION: JOB ID: [id number] [employer]- All Rights Reserved Reading location - IP/workstation name: [email or web address]
== END ==
LOC: LAB 10:40
PROVIDERS: ATTEND Internal Medicine Nephrology
DX: Z94.0 Kidney transplant status (principal); R05 Cough
CPT/HCPCS: 36415; 71046; 80048; 81001; 82570; 84156; 85027; 87086

== ENCOUNTER 2018-03-07 22:53 | Emergency (ER) | payer MEDICARE ==
[2018-03-07] MEDS ORDERED: NORMAL SALINE 1000 ML 1,000 ML IV ONE (23:19)
[2018-03-07] MEDS ORDERED: ONDANSETRON HCL INJ/PF 4 MG/2 ML SDV IV ONE (23:19)
--- NOTE | 2018-03-07 23:21 | ER Document Report ---
ED General - General Chief Complaint: Altered Mental Status Stated Complaint: ALTERED MENTAL STATUS Time Seen by Provider: 03/07/18 23:08 Notes: Patient is a 27-year-old male that comes to the emergency department for chief complaint of alcohol intoxication and a fall. Patient hit his head, he has a bruised right upper lip and a small bruise over his left eyebrow area. No bleeding except for a small scrape over his left hand. He was not knocked out, he has not had vomiting. is at bedside. She states she does not think he had a seizure. He does have a history of seizures, he is on Keppra 500 mg twice daily. Patient also has a history of renal failure and he is a renal transplant, he is on Prograf, Myfortic, prednisone. For the past 2 days he has been out of his transplant medications. Denies street drugs. TRAVEL OUTSIDE OF THE U.S. IN LAST 30 DAYS: No - Related Data Allergies/Adverse Reactions: No Known Allergies Allergy (Verified 08/09/17 07:21) Past Medical History - General Information source: Patient - Social History Smoking Status: Never Smoker Frequency of alcohol use: Occasional Drug Abuse: None Lives with: Family Family History: Reviewed & Not Pertinent - Past Medical History Cardiac Medical History: Reports: Hx Hypertension Neurological Medical History: Reports: Hx Seizures Renal/ Medical History: Denies: Hx Peritoneal Dialysis Past Surgical History: Reports: Hx Kidney (Renal Surgery) - R transplant Review of Systems - Review of Systems Constitutional: No symptoms reported EENT: No symptoms reported Cardiovascular: No symptoms reported Respiratory: No symptoms reported Gastrointestinal: No symptoms reported Genitourinary: No symptoms reported Male Genitourinary: No symptoms reported Musculoskeletal: See HPI Skin: See HPI Hematologic/Lymphatic: No symptoms reported Neurological/Psychological: See HPI Physical Exam - Vital signs Vitals: Resp BP Pulse Ox 12 151/104 H 98 03/07/18 23:01 03/07/18 23:01 03/07/18 23:01 - Notes Notes: GENERAL: Intoxicated, slurring speech, unsteady gait, becomes annoyed easily HEAD: Normocephalic, ecchymosis to the right upper lip and left eyebrow. No swelling of the orbit. No other signs of trauma, no open wounds. EYES: Pupils equal, round, and reactive to light. Extraocular movements intact. ENT: Oral mucosa moist, tongue midline. Oropharynx unremarkable. Airway patent. Nares patent, no nasal septal hematoma, TM's intact. NECK: Full range of motion. Supple. Trachea midline. LUNGS: Clear to auscultation bilaterally, no wheezes, rales, or rhonchi. No respiratory distress. HEART: Regular rate and rhythm. No murmur ABDOMEN: Soft, non-tender. Non-distended. Bowel sounds present in all 4 quadrants. GENITOURINARY: Deferred EXTREMITIES: Moves all 4 extremities spontaneously. No edema, normal radial and dorsalis pedis pulses bilaterally. No cyanosis. BACK: Non-tender back generally on palpation. No midline tenderness, no saddle anesthesia, no signs of trauma. Normal upper and lower extremity range of motion , normal strength, normal distal neurovascular exam. NEUROLOGICAL: Intoxicated, slurred speech, unsteady gait, otherwise unremarkable neurological exam [cranial nerves II through XII grossly intact]. PSYCH: Somewhat irritable SKIN: Warm, dry, normal turgor. No rashes or lesions noted. Course - Re-evaluation Re-evalutation: Patient with bruising over the upper lip and over the left eyebrow. Oral pharyngeal exam unremarkable. Neurological exam is normal except patient is unsteady and he slurs his words. Appears acutely intoxicated. Because of this with head injury CAT scan of the head and neck were performed, shows no acute abnormality. CBC, chemistry generally unremarkable. Creatinine is 1.2, almost better than his baseline per and patient. Urinalysis does not show infection. Patient was monitored until he became sober and steady on his feet. He was given IV fluids. 03/08/18 06:10 Patient has no been reevaluated 3 times. He is now clinically sober, ambulates with steady gait, does not slurred speech, states he feels much better. He requests 1 week refills of his medications for his transplant. He states he does have follow-up and refills but he was unable to get the full prescription filled because of money. He states they are working on insurance issues. He was provided with a 1 week supply. Discussed head injury precautions, follow-up , return precautions. Patient states understanding and agreement. His is driving home. - Vital Signs Vital signs: Temp Pulse Resp BP Pulse Ox 97.4 F 21 H 115/79 94 03/07/18 23:03 03/08/18 05:01 03/08/18 05:01 03/08/18 04:01 - Laboratory Result Diagrams: 03/07/18 23:25 03/07/18 23:25 Laboratory results interpreted by me: 03/07/18 03/08/18 23:25 05:20 Sodium 148.5 H Chloride 115 H Carbon Dioxide 21 L Creatinine 1.29 H Calcium 10.5 H Urine Protein 30 H Urine Blood SMALL H Discharge - Discharge Clinical Impression: Alcohol intoxication Qualifiers: Complication of substance-induced condition: uncomplicated Qualified Code(s): F10.920 - Alcohol use, unspecified with intoxication, uncomplicated Head injury Qualifiers: Encounter type: initial encounter Qualified Code(s): S09.90XA - Unspecified injury of head, initial encounter Condition: Stable Disposition: HOME, SELF-CARE Additional Instructions: Your kidney functioning shows a creatinine of 1.2. No infection is seen in your urine at this time. The imaging of your head and neck did not show any concerning abnormalities. You will likely have postconcussive headaches. See postconcussive syndrome and head injury precautions listed below. You have been provided with a one-week supply of your medications, please follow -up with your provider for additional management. Return to the emergency department for any concerning symptoms. Post-Concussion Syndrome Post-concussion syndrome often follows a mild head injury. Dizziness, mild nausea, mild headache, trouble concentrating, and a general sense of "not being right" may persist for a week or two. This is a frequent complication of concussion. However, if the symptoms worsen, or new symptoms develop, you should be re-examined by the physician. There is no specific cure for post-concussion syndrome. You can take mild pain medication such as ibuprofen or acetaminophen. While you should not drive if you are dizzy, you can get back to your regular activities as quickly as the symptoms will allow. And while vigorous exercise may worsen the headache, mild physical activity often is helpful. Sitting and thinking about your symptoms will worsen them. If difficulties continue, you may need referral for special therapy to help you regain full mental function. Call the physician if you are worsening, or if symptoms are still present in one week. Report any new symptoms immediately. Head Injury Precautions At this point, there is no evidence that your head injury is serious. Observation is necessary, however. Take only clear liquids for the first few hours, unless told otherwise by the doctor. If no pain medication was prescribed, you may take acetaminophen according to the directions on the bottle. Do not take any medication that may alter your level of alertness (unless you've discussed it with the doctor first) . Limit activity for the first 24 hours. Bed rest is best. During the first 24 hours, check to see approximately every two to three hours that the patient is easily arousable, responds normally, and can perform common tasks such as walking without difficulty. Contact your doctor or go to the hospital if any of the following things occur: Persistent vomiting, difficulty in arousing the patient, worsening or continued headache, or failure to improve as expected. Head injuries can cause symptoms that persist for a few days or even a few weeks. Prescriptions: Mycophenolate Sodium [Myfortic 180 Mg Tablet.] 540 mg PO ASDIR #42 tablet. Prednisone [Deltasone 10 mg Tablet] 10 mg PO DAILY #7 tablet Tacrolimus [Prograf] 1 mg PO ASDIR #49 capsule Forms: Return to Work Referrals: CHLOE MOSQUERA MD [NO LOCAL MD] - Follow up as needed
[2018-03-07 23:40] LABS: ABSOLUTE BASOPHILS # (AUTO) 0.1 10^3/uL (0.0-0.2); ABSOLUTE EOSINOPHILS # (AUTO) 0.3 10^3/uL (0.0-0.6); ABSOLUTE MONOCYTES (AUTO) 0.8 10^3/uL (0.1-1.4); ABSOLUTE NEUT (AUTO) 5.7 10^3/uL (1.7-8.2); BASOPHILS % (AUTO) 0.9 % (0-2); EOSINOPHILS % (AUTO) 3.2 % (0-6); HEMATOCRIT 42.9 % (37.9-51.0); HEMOGLOBIN 14.8 g/dL (13.5-17.0); LYMPHOCYTES % (AUTO) 13.3 % (13-45); MEAN CORPUSCULAR HEMOGLOBIN 30.8 pg (27.0-33.4); MEAN CORPUSCULAR HGB CONC 34.5 g/dL (32.0-36.0); MEAN CORPUSCULAR VOLUME 89 fl (80-97); MONOCYTES % (AUTO) 9.8 % (3-13); PLATELET COUNT 155 10^3/uL (150-450); RED BLOOD COUNT 4.81 10^6/uL (4.35-5.55); RED CELL DISTRIBUTION WIDTH 13.4 % (11.5-14.0); SEGMENTED NEUTROPHILS % (AUTO) 72.8 % (42-78); TOTAL CELLS COUNTED % (AUTO) 100 %; WHITE BLOOD COUNT 7.8 10^3/uL (4.0-10.5)
[2018-03-07 23:51] LABS: ANION GAP 13 (5-19); BLOOD UREA NITROGEN 17 mg/dL (7-20); CALCIUM 10.5 mg/dL (8.4-10.2); CARBON DIOXIDE 21 mmol/L (22-30); CHLORIDE 115 mmol/L (98-107); GLUCOSE 93 mg/dL (75-110); POTASSIUM 4.4 mmol/L (3.6-5.0); SODIUM 148.5 mmol/L (137-145)
--- NOTE | 2018-03-08 00:11 | RADIOLOGY REPORT (SQ) ---
EXAM DESCRIPTION: CT HEAD WITHOUT IV CONTRAST COMPLETED DATE/TME: 03/07/2018 23:19 CLINICAL HISTORY: 27 years Male fall, head injury, ETOH COMPARISON: 08/08/2017 TECHNIQUE: Contiguous axial CT images obtained through the brain without IV contrast. This exam was performed according to our department optimization program which includes automated exposure control, adjustment of the mA and/or kv according to patient size and/or use of iterative reconstruction technique. FINDINGS: The ventricles and sulci are within normal limits for the patient's age. No midline shift or mass effect. No masses identified. No acute intracranial hemorrhage. No fluid or significant mucosal thickening in the visualized paranasal sinuses. No depressed calvarial fractures. IMPRESSION: No acute intracranial abnormality is identified.
--- NOTE | 2018-03-08 00:12 | RADIOLOGY REPORT (SQ) ---
EXAM DESCRIPTION: CT CERVICAL SPINE WITHOUT IV CONTRAST COMPLETED DATE/TME: 03/07/2018 23:19 CLINICAL HISTORY: 27 years Male fall, head injury, ETOH COMPARISON: None. TECHNIQUE: Contiguous axial images obtained through the cervical spine without IV contrast. Coronal and sagittal reformatted images obtained. This exam was performed according to our department optimization program which includes automated exposure control, adjustment of the mA and/or kv according to patient size and/or use of iterative reconstruction technique. FINDINGS: Vertebral body alignment is unremarkable. No acute fractures. No significant central canal stenosis. Prevertebral soft tissues appear within normal limits. IMPRESSION: No acute cervical spinal fracture is identified.
[2018-03-08 05:36] LABS: APPEARANCE,URINE CLEAR; BILIRUBIN,URINE NEGATIVE (NEGATIVE); COLOR,URINE YELLOW; GLUCOSE, URINE NEGATIVE (NEGATIVE); KETONES,URINE NEGATIVE (NEGATIVE); LEUKOCYTE ESTERASE,URINE NEGATIVE (NEGATIVE); NITRITE,URINE NEGATIVE (NEGATIVE); PROTEIN,URINE 30 mg/dL (NEGATIVE); URINE SPECIFIC GRAVITY 1.006; UROBILINOGEN,URINE NEGATIVE mg/dL (<2.0)
[2018-03-08 07:09] VITALS: BP 132/74
== END 2018-03-08 07:09 | disposition home or self-care (01) ==
LOC: ER 22:53
DX: S09.90XA Unspecified injury of head, initial encounter (principal); F10.920 Alcohol use, unspecified with intoxication, uncomplicated; R41.82 Altered mental status, unspecified; W18.30XA Fall on same level, unspecified, initial encounter; I10 Essential (primary) hypertension; Z94.0 Kidney transplant status
CPT/HCPCS: 99285; 96361; 96374; 36415; 83735; 85025; 80048; 81001; 70450; 72125; J2405; J7030

== ENCOUNTER 2018-03-26 14:17 | Emergency (ER) | payer MEDICARE ==
--- NOTE | 2018-03-26 14:40 | ER Document Report ---
ED Medical Screen (RME) - General Chief Complaint: Skin Problem Stated Complaint: SKIN ISSUE Time Seen by Provider: 03/26/18 14:36 Mode of Arrival: Ambulatory Information source: Patient, Relative, [facility] Records Notes: 27-year-old male with hypertension, renal transplant presents with a vesicular rash to the right side of his face and head. Patient has also had associated nausea, dizziness. I have greeted and performed a rapid initial assessment of this patient. A comprehensive ED assessment and evaluation of the patient, analysis of test results and completion of medical decision making process we will be contacted by additional ED providers. PHYSICAL EXAMINATION: Vital signs reviewed GENERAL: Well-appearing, well-nourished and in no acute distress. LUNGS: No respiratory distress Musculoskeletal: Normal range of motion NEUROLOGICAL: Normal speech, normal gait. PSYCH: Normal mood, normal affect. SKIN: Vesicular lesions behind right ear TRAVEL OUTSIDE OF THE U.S. IN LAST 30 DAYS: No - HPI Onset: Other Onset/Duration: Gradual, Persistent Quality of pain: Burning Severity: Moderate Associated Symptoms: Nausea Exacerbated by: Denies Relieved by: Denies Similar symptoms previously: Yes Recently seen / treated by doctor: No - Related Data Smoking: Non-smoker Frequency of alcohol use: None Drug Abuse: None Allergies/Adverse Reactions: No Known Allergies Allergy (Verified 08/09/17 07:21) Past Medical History - Past Medical History Cardiac Medical History: Reports: Hx Hypertension Neurological Medical History: Reports: Hx Seizures Renal/ Medical History: Denies: Hx Peritoneal Dialysis Past Surgical History: Reports: Hx Kidney (Renal Surgery) - R transplant Physical Exam - Vital signs Vitals: Temp Pulse Resp BP Pulse Ox 98.0 F 73 18 168/93 H 100 03/26/18 14:27 03/26/18 14:27 03/26/18 14:27 03/26/18 14:27 03/26/18 14:27 Course - Vital Signs Vital signs: Temp Pulse Resp BP Pulse Ox 98.0 F 73 18 168/93 H 100 03/26/18 14:27 03/26/18 14:27 03/26/18 14:27 03/26/18 14:27 03/26/18 14:27
[2018-03-26 16:17] LABS: ABSOLUTE EOSINOPHILS # (AUTO) 0.2 10^3/uL (0.0-0.6); ABSOLUTE LYMPHOCYTES (AUTO) 0.5 10^3/uL (0.5-4.7); ABSOLUTE MONOCYTES (AUTO) 0.5 10^3/uL (0.1-1.4); ABSOLUTE NEUT (AUTO) 3.4 10^3/uL (1.7-8.2); EOSINOPHILS % (AUTO) 3.9 % (0-6); HEMATOCRIT 40.9 % (37.9-51.0); HEMOGLOBIN 14.1 g/dL (13.5-17.0); LYMPHOCYTES % (AUTO) 11.7 % (13-45); MEAN CORPUSCULAR HGB CONC 34.5 g/dL (32.0-36.0); MEAN CORPUSCULAR VOLUME 90 fl (80-97); MONOCYTES % (AUTO) 10.7 % (3-13); PLATELET COUNT 143 10^3/uL (150-450); RED BLOOD COUNT 4.55 10^6/uL (4.35-5.55); RED CELL DISTRIBUTION WIDTH 13.1 % (11.5-14.0); SEGMENTED NEUTROPHILS % (AUTO) 72.7 % (42-78); TOTAL CELLS COUNTED % (AUTO) 100 %; WHITE BLOOD COUNT 4.7 10^3/uL (4.0-10.5)
[2018-03-26 16:27] LABS: ANION GAP 5 (5-19); BLOOD UREA NITROGEN 21 mg/dL (7-20); CALCIUM 10.2 mg/dL (8.4-10.2); CARBON DIOXIDE 24 mmol/L (22-30); CHLORIDE 112 mmol/L (98-107); GLUCOSE 92 mg/dL (75-110); POTASSIUM 4.4 mmol/L (3.6-5.0); SODIUM 141.2 mmol/L (137-145)
[2018-03-26] MEDS ORDERED: ACYCLOVIR SODIUM INJ/PF 500 MG/10 ML SDV IV ONE (17:35)
[2018-03-26] MEDS ORDERED: MORPHINE SULFATE 10 MG/ML INJ IV ONE (17:46)
[2018-03-26] MEDS ORDERED: ACYCLOVIR 800 MG TABLET PO ONE (20:00)
--- NOTE | 2018-03-26 20:08 | ER Document Report ---
ED General - General Chief Complaint: Skin Problem Stated Complaint: SKIN ISSUE Time Seen by Provider: 03/26/18 14:36 Mode of Arrival: Ambulatory TRAVEL OUTSIDE OF THE U.S. IN LAST 30 DAYS: No - HPI Patient complains to provider of: Rash Notes: Patient coming in for evaluation of a rash to right side of his face states vesicles 4 days ago to his right scalp and behind his ear. Patient denies any blurry vision ear pain. Patient denies any fever chills nausea vomiting diarrhea. Patient is a renal transplant patient receiving a kidney in 2014 at the [facility] however currently follows up with the transplant team in [place] at [facility]. Patient otherwise resting company states he has had shingles in the past along with chickenpox. Patient states compliance with his CellCept and Prograf resting comfortably upon my evaluation. - Related Data Allergies/Adverse Reactions: No Known Allergies Allergy (Verified 08/09/17 07:21) Past Medical History - General Information source: Patient, Relative, [facility] Records - Social History Smoking Status: Current Every Day Smoker Chew tobacco use (# tins/day): No Frequency of alcohol use: None Drug Abuse: None Family History: Reviewed & Not Pertinent Patient has suicidal ideation: No Patient has homicidal ideation: No - Past Medical History Cardiac Medical History: Reports: Hx Hypertension Neurological Medical History: Reports: Hx Seizures Renal/ Medical History: Denies: Hx Peritoneal Dialysis Past Surgical History: Reports: Hx Kidney (Renal Surgery) - R transplant Review of Systems - Review of Systems Constitutional: No symptoms reported EENT: No symptoms reported Cardiovascular: No symptoms reported Respiratory: No symptoms reported Gastrointestinal: No symptoms reported Genitourinary: No symptoms reported Male Genitourinary: No symptoms reported Musculoskeletal: No symptoms reported Skin: Rash Hematologic/Lymphatic: No symptoms reported Neurological/Psychological: No symptoms reported Physical Exam - Vital signs Vitals: Temp Pulse Resp BP Pulse Ox 98.0 F 73 18 168/93 H 100 03/26/18 14:27 03/26/18 14:27 03/26/18 14:27 03/26/18 14:27 03/26/18 14:27 Interpretation: Normal - General General appearance: Appears well, Alert - HEENT Head: Normocephalic, Atraumatic Eyes: Normal Conjunctiva: Normal Cornea: Normal. No: Dendrite, Flourescein stain uptake Extraocular movements intact: Yes Eyelashes: Normal Pupils: PERRL Ears: Normal External canal: Normal Tympanic membrane: Normal Notes: Examination of the scalp in the area above the mastoid revealed multiple vesicles in a dermatomal Pattern consistent with shingles or zoster - Respiratory Respiratory status: No respiratory distress Chest status: Nontender Breath sounds: Normal Chest palpation: Normal - Cardiovascular Rhythm: Regular Heart sounds: Normal auscultation Murmur: No - Abdominal Inspection: Normal Distension: No distension Bowel sounds: Normal Tenderness: Nontender Organomegaly: No organomegaly - Back Back: Normal, Nontender - Extremities General upper extremity: Normal inspection, Nontender, Normal color, Normal ROM , Normal temperature General lower extremity: Normal inspection, Nontender, Normal color, Normal ROM , Normal temperature, Normal weight bearing. No: Michelle's sign - Neurological Neuro grossly intact: Yes Cognition: Normal Orientation: AAOx4 Anel Coma Scale Eye Opening: Spontaneous Anel Coma Scale Verbal: Oriented Anel Coma Scale Motor: Obeys Commands [place] Coma Scale Total: 15 Speech: Normal Motor strength normal: LUE, RUE, LLE, RLE Sensory: Normal - Psychological Associated symptoms: Normal affect, Normal mood - Skin Skin Temperature: Warm Skin Moisture: Dry Skin Color: Normal Course - Re-evaluation Re-evalutation: 03/26/18 22:26 Discussed patient case with the transplant team at [facility]. Recommend the patient be transferred for IV acyclovir and further monitoring the related to the patient however at this time declines transfer stating that he would like to go home. 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 Did explain to the patient about the vesicles are present would recommend abstaining from any also to stay away fthe general population patient stated understanding. I did explain to the patient that continuation of the infection could result in or disability including blindness possibility leading to meningitis. Patient states understanding of these risk however states he would rather be discharged and take oral therapy. I did write the patient a prescription for acyclovir we will sign the patient out AGAINST MEDICAL ADVICE. The patient has decided not to proceed with further recommended testing or treatment to determine the cause of their symptoms. The risks and alternatives to the recommendation were discussed and the patient voiced understanding. The patient appears clinically to have capacity to make this decision. The patient was instructed that he/she could return to the ER at any time to complete the testing or treatment.. - Vital Signs Vital signs: Temp Pulse Resp BP Pulse Ox 98.3 F 61 18 140/86 H 100 03/26/18 20:18 18 20:18 03/26/18 20:18 03/26/18 20:18 03/26/18 20:18 - Laboratory Result Diagrams: 03/26/18 15:45 03/26/18 15:45 Laboratory results interpreted by me: 03/26/18 03/26/18 15:45 15:45 Plt Count 143 L Lymphocytes % 11.7 L Chloride 112 H BUN 21 H Discharge - Discharge Clinical Impression: History of renal transplant Shingles rash Qualifiers: Herpes zoster complications: without complications Qualified Code(s): B02.9 - Zoster without complications Disposition: AGAINST MEDICAL ADVICE Instructions: Acyclovir ([facility]), Shingles ([facility]) Additional Instructions: You are seen today diagnosed with shingles on your head. I did discuss her case with the transplant team at [facility] and recommended IV acyclovir and transfer to their facility at this time he declined transportation I will treat you with oral acyclovir which is not optimized therapy for your condition there is a chance that you can become severely infected with this virus causing meningitis blindness and/or the state an understanding of these risk please follow- up return to ER to early convenience Prescriptions: Acyclovir [Acyclovir 400 mg Tablet] 400 mg PO 5XD #10 tablet Tramadol HCl [Ultram 50 mg Tablet] 50 mg PO ASDIR PRN #20 tablet PRN Reason: Forms: Return to Work
[2018-03-26] MEDS ORDERED: ACYCLOVIR 800 MG TABLET ONE (20:17)
[2018-03-26 20:29] VITALS: BP 140/86
== END 2018-03-26 20:29 | disposition left against medical advice (07) ==
LOC: ER 14:17
DX: B02.9 Zoster without complications (principal); F17.200 Nicotine dependence, unspecified, uncomplicated; I10 Essential (primary) hypertension; Z94.0 Kidney transplant status
CPT/HCPCS: 99284; 96375; 96365; 96366; 36415; 85025; 80048; J0133; J2270; A9270; J3490

== ENCOUNTER 2019-10-01 12:45 | Inpatient (IN) | payer MEDICARE, MEDICAID ==
[2019-10-01] MEDS ORDERED: ONDANSETRON HCL INJ/PF 4 MG/2 ML SDV IV ONE (13:00)
[2019-10-01] MEDS ORDERED: MORPHINE SULFATE 10 MG/ML INJ IV ONE ×2 (13:00→15:03)
--- NOTE | 2019-10-01 13:03 | ER Document Report ---
ED Medical Screen (RME) - General Chief Complaint: Shortness Of Breath Stated Complaint: RIGHT SIDE PAIN,SWELLING Time Seen by Provider: 10/01/19 12:54 Mode of Arrival: Ambulatory Information source: Patient Notes: HPI; 29-year-old male past medical history significant for a kidney transplant 4 and half years ago resents emergency room complaining of right shoulder, right rib, right abdominal pain for the past 2 weeks. Denies any trauma or injury. States it hurts to take a deep breath. Denies any chest pain. Denies nausea, vomiting. PE: Alert and oriented x3, moderate distress noted. Lungs diminished on the right. Heart: Regular rate rhythm without murmurs rubs or gallops. Tender on palpation to the right lower anterior ribs. Unable to do full assessment in triage. I have greeted and performed a rapid initial assessment of this patient. A comprehensive ED assessment and evaluation of the patient, analysis of test results and completion of the medical decision making process will be conducted by additional ED providers. I have specifically instructed the patient or family members with the patient to immediately return to any nursing staff should anything change in the patient's condition or with their chief complaint. TRAVEL OUTSIDE OF THE U.S. IN LAST 30 DAYS: No - Related Data Allergies/Adverse Reactions: No Known Allergies Allergy (Verified 10/20/18 12:30) Past Medical History - Past Medical History Cardiac Medical History: Reports: Hx Hypertension Neurological Medical History: Reports: Hx Seizures Renal/ Medical History: Denies: Hx Peritoneal Dialysis Past Surgical History: Reports: Hx Kidney (Renal Surgery) - R transplant Physical Exam - Vital signs Vitals: Temp Pulse Resp BP Pulse Ox 98.6 F 74 22 H 157/92 H 96 10/01/19 12:50 10/01/19 12:50 10/01/19 12:50 10/01/19 12:50 10/01/19 12:50 Course - Vital Signs Vital signs: Temp Pulse Resp BP Pulse Ox 98.6 F 74 22 H 157/92 H 96 10/01/19 12:50 10/01/19 12:50 10/01/19 12:50 10/01/19 12:50 10/01/19 12:50
[2019-10-01 13:45] LABS: APPEARANCE,URINE CLEAR; BILIRUBIN,URINE NEGATIVE (NEGATIVE); COLOR,URINE YELLOW; GLUCOSE, URINE NEGATIVE (NEGATIVE); KETONES,URINE NEGATIVE (NEGATIVE); LEUKOCYTE ESTERASE,URINE NEGATIVE (NEGATIVE); NITRITE,URINE NEGATIVE (NEGATIVE); PROTEIN,URINE 100 mg/dL (NEGATIVE); UROBILINOGEN,URINE NEGATIVE mg/dL (<2.0)
[2019-10-01 13:52] LABS: HEMATOCRIT 46.2 % (37.9-51.0); MEAN CORPUSCULAR HGB CONC 34.5 g/dL (32.0-36.0); MEAN CORPUSCULAR VOLUME 90 fl (80-97); PLATELET COUNT 275 10^3/uL (150-450); RED BLOOD COUNT 5.15 10^6/uL (4.35-5.55); RED CELL DISTRIBUTION WIDTH 12.5 % (11.5-14.0)
[2019-10-01 14:00] LABS: ALBUMIN 2.8 g/dL (3.5-5.0); ALKALINE PHOSPHATASE 342 U/L (38-126); ASPARTATE AMINO TRANSFERASE 58 U/L (17-59); BILIRUBIN,DIRECT 0.3 mg/dL (0.0-0.4); BLOOD UREA NITROGEN 27 mg/dL (7-20); GLUCOSE 153 mg/dL (75-110); POTASSIUM 5.3 mmol/L (3.6-5.0); TOTAL PROTEIN 5.5 g/dL (6.3-8.2)
[2019-10-01 14:05] LABS: ANION GAP 6 (5-19); CARBON DIOXIDE 19 mmol/L (22-30); CHLORIDE 105 mmol/L (98-107)
--- NOTE | 2019-10-01 14:18 | RADIOLOGY REPORT (SQ) ---
EXAM DESCRIPTION: CHEST 2 VIEWS IMAGES COMPLETED DATE/TIME: 10/01/2019 1:53 pm REASON FOR STUDY: Dyspnea COMPARISON: PA and lateral views of the chest from 08/15/2017. EXAM PARAMETERS: NUMBER OF VIEWS: Two views. TECHNIQUE: PA and lateral views of the chest were obtained. RADIATION DOSE: NA LIMITATIONS: None. FINDINGS: LUNGS AND PLEURA: Pleural and parenchymal opacities in the inferior aspect of the right he mithorax that obscure the contours of the hemidiaphragm and blunt the costophrenic sulci. MEDIASTINUM AND HILAR STRUCTURES: No mediastinal or hilar contour abnormality. HEART AND VASCULAR STRUCTURES: The cardiac silhouette and pulmonary vasculature are within normal stuart its. BONES: No acute findings. HARDWARE: None in the chest. OTHER: No other finding. IMPRESSION: Pleural and parenchymal opacities in the inferior aspect of the right hemithorax that co uld represent a combination of pleural fluid, atelectasis and/or pneumonia. TECHNICAL DOCUMENTATION: JOB ID: [id number] 2010 [employer]- All Rights Reserved Reading location - IP/workstation name: [email or web address]
[2019-10-01 14:24] LABS: ABSOLUTE LYMPHOCYTES# (MANUAL) 0.8 10^3/uL (0.5-4.7); ABSOLUTE MONOCYTES # (MANUAL) 1.3 10^3/uL (0.1-1.4); BAND NEUTROPHILS % (MANUAL) 2 % (3-5); BASOPHILS % (MANUAL) 0 % (0-2); EOSINOPHILS % (MANUAL) 0 % (0-6); LYMPHOCYTES % (MANUAL) 5 % (13-45); MONOCYTES % (MANUAL) 9 % (3-13); SEGMENTED NEUTROPHILS % (MAN) 83 % (42-78); TOTAL CELLS COUNTED 100
[2019-10-01 14:25] LABS: PLATELET COMMENT ADEQUATE; RBC MORPHOLOGY COMMENT NORMO-CYTIC/CHROMIC
[2019-10-01] MEDS ORDERED: PIPERACILLIN/TAZOBACTAM 4.5 GM VIAL IV ONE (14:41)
[2019-10-01] MEDS ORDERED: NORMAL SALINE 1000 ML 1,000 ML IV ONE (14:54)
--- NOTE | 2019-10-01 15:02 | ER Document Report ---
ED General - General Chief Complaint: Shortness Of Breath Stated Complaint: RIGHT SIDE PAIN,SWELLING Time Seen by Provider: 10/01/19 12:54 Mode of Arrival: Ambulatory Information source: Patient TRAVEL OUTSIDE OF THE U.S. IN LAST 30 DAYS: No - HPI Notes: Patient presents with right lateral chest pain and right upper abdominal pain. States is been going on for about 2 days. It is sharp and intermittent. He states it is worse with a deep breath and better when he does not take a deep breath. It does radiate up the right side of his chest into his right shoulder. He has had some mild fever and chills but no cough cold or congestion. He states he is a renal transplant patient and had the transplant approximately 4 years ago. He states his been taking all of his medications for the renal transplant. Said no vomiting or diarrhea. No rashes. He denies any known covert virus exposures. - Related Data Allergies/Adverse Reactions: No Known Allergies Allergy (Verified 10/20/18 12:30) Past Medical History - General Information source: Patient - Social History Smoking Status: Former Smoker Frequency of alcohol use: None Drug Abuse: None Family History: Reviewed & Not Pertinent Patient has homicidal ideation: No - Past Medical History Cardiac Medical History: Reports: Hx Hypertension Neurological Medical History: Reports: Hx Seizures Renal/ Medical History: Denies: Hx Peritoneal Dialysis Past Surgical History: Reports: Hx Kidney (Renal Surgery) - R transplant Review of Systems - Review of Systems Constitutional: Chills, Fever, Malaise, Weakness Cardiovascular: Chest pain. denies: Palpitations Respiratory: Short of breath. denies: Cough -: Yes All other systems reviewed and negative Physical Exam - Vital signs Vitals: Temp Pulse Resp BP Pulse Ox 98.6 F 74 22 H 157/92 H 96 10/01/19 12:50 10/01/19 12:50 10/01/19 12:50 10/01/19 12:50 10/01/19 12:50 Interpretation: Hypertensive, Tachypneic - General General appearance: Appears well, Alert In distress: None - HEENT Head: Normocephalic, Atraumatic Eyes: Normal Pupils: PERRL - Respiratory Respiratory status: Tachypnea - Mild tachypnea Chest status: Nontender Breath sounds: Decreased air movement Chest palpation: Normal - Cardiovascular Rhythm: Regular Heart sounds: Normal auscultation Murmur: No - Abdominal Inspection: Normal Distension: No distension Bowel sounds: Normal Tenderness: Tender - Mild tenderness to palpation of the right upper quadrant without rebound or guarding. Organomegaly: No organomegaly - Back Back: Normal, Nontender - Extremities General upper extremity: Normal inspection, Nontender, Normal color, Normal ROM, Normal temperature General lower extremity: Normal inspection, Nontender, Normal color, Normal ROM, Normal temperature, Normal weight bearing. No: Michelle's sign - Neurological Neuro grossly intact: Yes Cognition: Normal Orientation: AAOx4 Anel Coma Scale Eye Opening: Spontaneous [place] Coma Scale Verbal: Oriented [place] Coma Scale Motor: Obeys Commands Anel Coma Scale Total: 15 Speech: Normal Motor strength normal: LUE, RUE, LLE, RLE Sensory: Normal - Psychological Associated symptoms: Normal affect, Normal mood - Skin Skin Temperature: Warm Skin Moisture: Dry Skin Color: Normal Course - Re-evaluation Re-evalutation: 10/01/19 15:00 Patient is a renal transplant patient who presents with right-sided chest and upper abdominal pain. He has an obvious multi lobar pneumonia with pleural effusion. Patient will be started on antibiotics. He does have a white count of 14,000. He also has a moderate sized pleural effusion. He has no shortness of breath at this time and appears stable on room air. He is not hypotensive or tachycardic however by labs he does appear somewhat dry and will be cautiously rehydrated. Due to patient's immunocompromised status he will be admitted to the hospital for further therapy. - Vital Signs Vital signs: Temp Pulse Resp BP Pulse Ox 98.6 F 74 22 H 157/92 H 96 10/01/19 12:50 10/01/19 12:50 10/01/19 12:50 10/01/19 12:50 10/01/19 12:50 - Laboratory Result Diagrams: 10/01/19 13:22 10/01/19 13:22 Laboratory results interpreted by me: 10/01/19 10/01/19 10/01/19 13:22 13:22 13:22 WBC 14.0 H Seg Neuts % (Manual) 83 H Band Neutrophils % 2 L Lymphocytes % (Manual) 5 L Abs Neuts (Manual) 11.9 H Sodium 129.5 L Potassium 5.3 H Carbon Dioxide 19 L BUN 27 H Glucose 153 H Alkaline Phosphatase 342 H Total Protein 5.5 L Albumin 2.8 L Urine Protein 100 H Urine Blood SMALL H - Diagnostic Test Radiology reviewed: Image reviewed, Reports reviewed Discharge - Discharge Clinical Impression: Pneumonia Qualifiers: Pneumonia type: due to unspecified organism Laterality: right Lung location: lower lobe of lung Qualified Code(s): J18.9 - Pneumonia, unspecified organism Condition: Serious Disposition: ADMITTED INPATIENT Admitting Provider: Kj (Hospitalist) Unit Admitted: Medical Floor
[2019-10-01] MEDS ORDERED: ACETAMINOPHEN 325 MG TABLET PO PRN (16:34)
[2019-10-01] MEDS ORDERED: ONDANSETRON HCL INJ/PF 4 MG/2 ML SDV IV PRN (16:34)
[2019-10-01] MEDS ORDERED: MAG HYDROX/AL HYDROX/SIMETH SUSP 30 ML UDCUP PO PRN (16:34)
--- NOTE | 2019-10-01 17:08 | PDOC H&P ---
History of Present Illness Admission Date/PCP: 10/01/19 15:08 Patient complains of: Right-sided chest pain History of Present Illness: HAYLEE MORELAND is a 29 year old male with a history of ESRD S/P renal transplant 4 years ago, hypertension, seizures, who presents to the hospital with complaint of right-sided chest pain. Pain started few weeks ago and has been p rogressively worsening. Exacerbated by movement and deep breathing. No alleviating factors. Chest pain is sharp without much radiation. Gets as bad as a 7 8 or 8/10. Denies any shortness of breath, cough, nausea or vomiting. Denies any runny nose. Denies any sick contacts. Denies any history of blood clots in the family or before. Past Medical History Cardiac Medical History: Reports: Hypertension Neurological Medical History: Reports: Seizures Past Surgical History Past Surgical History: Reports: Renal Transplant Social History Information Source: Patient Lives with: Spouse/Significant other Smoking Status: Current Every Day Smoker Frequency of Alcohol Use: Occasional Hx Recreational Drug Use: No Hx Prescription Drug Abuse: No - Advance Directive Resuscitation Status: Full Code Family History Family History: Hypertension, Other - ESRD and several members of the family Parental Family History Reviewed: Yes Children Family History Reviewed: Yes Sibling(s) Family History Reviewed.: Yes Medication/Allergy Home Medications: Mycophenolate Sodium [Myfortic 180 Mg Tablet.Dr] 720 mg PO BID 08/09/17 Tacrolimus [Prograf] 2 mg PO Q12 08/09/17 Levetiracetam [Keppra 500 mg Tablet] 500 mg PO Q12 #30 tablet 08/10/17 Prednisone 10 mg PO DAILY 10/20/18 Amlodipine Besylate [Norvasc 5 mg Tablet] 5 mg PO DAILY 10/01/19 Carvedilol [Coreg 6.25 mg Tablet] 6.25 mg PO Q12 10/01/19 Lisinopril [Prinivil 5 mg Tablet] 5 mg PO DAILY 10/01/19 Allergies/Adverse Reactions: No Known Allergies Allergy (Verified 10/20/18 12:30) Review of Systems Constitutional: ABSENT: chills, fatigue, fever(s), headache(s) Eyes: ABSENT: visual disturbances Nose, Mouth, and Throat: ABSENT: headache(s) Cardiovascular: PRESENT: chest pain, edema. ABSENT: dyspnea on exertion Respiratory: ABSENT: cough, dyspnea, hemoptysis, sputum Gastrointestinal: ABSENT: nausea, vomiting Genitourinary: ABSENT: dysuria Integumentary: ABSENT: diaphoresis Neurological: ABSENT: dizziness Endocrine: ABSENT: polyuria Hematologic/Lymphatic: ABSENT: easy bleeding Allergic/Immunologic: PRESENT: other - Denies rhinorrhea Physical Exam Vital Signs: Temp Pulse Resp BP Pulse Ox 98.6 F 74 22 H 157/92 H 98 10/01/19 12:50 10/01/19 12:50 10/01/19 12:50 10/01/19 12:50 10/01/19 14:42 Intake & Output 09/30/19 10/01/19 10/02/19 06:59 06:59 06:59 Intake Total 1000 Balance 1000 Weight 83.1 kg General appearance: PRESENT: no acute distress, cooperative Head exam: PRESENT: normocephalic Eye exam: PRESENT: EOMI Neck exam: ABSENT: JVD Respiratory exam: PRESENT: chest wall tenderness, clear to auscultation margaret, decreased breath sounds - Right lower lung, unlabored. ABSENT: tachypnea, wheezes Cardiovascular exam: PRESENT: RRR, +S1, +S2. ABSENT: tachycardia GI/Abdominal exam: PRESENT: soft. ABSENT: rebound, rigid, tenderness Extremities exam: PRESENT: pedal edema, +1 edema Neurological exam: PRESENT: alert, awake, oriented to person, oriented to place, oriented to time Psychiatric exam: ABSENT: agitated, anxious Focused psych exam: ABSENT: pressured speech Results Laboratory Results: 10/01/19 13:22 10/01/19 13:22 10/01/19 10/01/19 10/01/19 13:22 13:22 13:22 WBC 14.0 H RBC 5.15 Hgb 16.0 Hct 46.2 MCV 90 MCH 31.0 MCHC 34.5 RDW 12.5 Plt Count 275 Seg Neutrophils % Not Reportable Sodium 129.5 L Potassium 5.3 H Chloride 105 Carbon Dioxide 19 L Anion Gap 6 BUN 27 H Creatinine 1.07 Est GFR ( Amer) > 60 Glucose 153 H Lactic Acid Calcium 10.0 Total Bilirubin 1.0 AST 58 Alkaline Phosphatase 342 H Total Protein 5.5 L Albumin 2.8 L Urine Color YELLOW Urine Appearance CLEAR Urine pH 5.0 Ur Specific [place] 1.010 Urine Protein 100 H Urine Glucose (UA) NEGATIVE Urine Ketones NEGATIVE Urine Blood SMALL H Urine Nitrite NEGATIVE Ur Leukocyte Esterase NEGATIVE Urine WBC (Auto) 10 Urine RBC (Auto) 0 10/01/19 15:18 WBC RBC Hgb Hct MCV MCH MCHC RDW Plt Count Seg Neutrophils % Sodium Potassium Chloride Carbon Dioxide Anion Gap BUN Creatinine Est GFR ( Amer) Glucose Lactic Acid 0.5 L Calcium Total Bilirubin AST Alkaline Phosphatase Total Protein Albumin Urine Color Urine Appearance Urine pH Ur Specific [place] Urine Protein Urine Glucose (UA) Urine Ketones Urine Blood Urine Nitrite Ur Leukocyte Esterase Urine WBC (Auto) Urine RBC (Auto) Impressions: Chest X-Ray 10/01/19 12:59 IMPRESSION: Pleural and parenchymal opacities in the inferior aspect of the right hemithorax that could represent a combination of pleural fluid, atelectasis and/or pneumonia. Assessment and Plan - Diagnosis (1) Pleural effusion, right Is this a current diagnosis for this admission?: Yes Plan: New onset right-sided effusion. Etiology is unknown at this time. Unclear if there is any underlying pneumonia but I will cover empirically with Levaquin given leukocytosis. Check CTA chest to rule out PE. Will plan for thoracentesis tomorrow. Will check coags in the morning. Thoracentesis labs ordered. BNP in AM. (2) Chest pain, pleuritic Is this a current diagnosis for this admission?: Yes Plan: Secondary to right-sided effusion. Will evaluate etiology. Nonanginal chest pain. Pain control with Tylenol, tramadol and morphine IV for breakthrough. Avoid NSAIDs. Will apply lidocaine patch. (3) Renal transplant recipient Is this a current diagnosis for this admission?: Yes Plan: Has history of renal transplant 4 years ago in [place]. Was on dialysis for 5 years prior to that. Follows with Dr. Kelley at [place]. Apparently kidney disease runs in family. He is uncertain as to exactly what caused his renal failure. Continue tacrolimus, CellCept and prednisone. Monitor creatinine. IV fluids pre-and post contrast administration for CTA. (4) Seizure disorder Is this a current diagnosis for this admission?: Yes Plan: Continue Keppra (5) Hypertension Qualifiers: Hypertension type: essential hypertension Qualified Code(s): I10 - Essential (primary) hypertension Is this a current diagnosis for this admission?: Yes Plan: Resume antihypertensives - Time Time Spent with patient: 35 or more minutes
[2019-10-01] MEDS ORDERED: LIDOCAINE 5% (700 MG) TRANSDERMAL ADH..PATCH TP ONE (18:00)
[2019-10-01] MEDS: AMLODIPINE BESYLATE 5 MG TABLET PO SCH (18:23)
[2019-10-01] MEDS: MYCOPHENOLATE MOFETIL 250 MG CAPSULE PO SCH (18:24)
--- NOTE | 2019-10-01 18:51 | RADIOLOGY REPORT (SQ) ---
EXAM DESCRIPTION: CTA CHEST IMAGES COMPLETED DATE/TIME: 10/01/2019 4:45 pm REASON FOR STUDY: right pleural effusion. chest pain COMPARISON: Chest radiograph 10/01/2019. CT abdomen and pelvis, 10/20/2018. TECHNIQUE: CT scan of the chest performed using helical scanning technique with dynamic intravenous contrast injection. Images reviewed with lung, soft tissue and bone windows. Reconstructed coronal and sagittal MPR images reviewed. Additional 3 dimensional post-processing performed to develop Maximal Intensity Projection images (CA P). All images stored on PACS. All CT scanners at this facility use dose modulation, iterative reconstruction, and/or weight based d osing when appropriate to reduce radiation dose to as low as reasonably achievable (ALARA). [facility]: Dose Right [facility]: CareDose [facility]: Dose Right [facility]: Teradose 4D [facility]: Revolve. CONTRAST TYPE AND DOSE: 62 mL Omnipaque 350- low osmolar. Contrast bolus optimized for the pulmonary arteries. Not diagnostic for the aorta. RENAL FUNCTION: Creatinine 1.07 today. Patient has a single kidney. RADIATION DOSE: CT Rad equipment meets quality standard of care and radiation dose reduction techniq ues were employed. CTDIvol: 14.9 - 16.5 mGy. DLP: 615 mGy-cm. . LIMITATIONS: Respiratory motion obscures detail at the lung bases. FINDINGS: LUNGS AND PLEURA: Trachea has normal caliber and appearance. Background moderate pulmonar y emphysema. Compressive atelectasis and consolidation at the right lung base including the right mi ddle and lower lobes. Moderate right pleural effusion. Trace left effusion. No focal left consolid ation. No pneumothorax. AORTA AND GREAT VESSELS: No aneurysm. Contrast bolus not optimized for the aorta. HEART: There is moderate cardiomegaly. Trace pericardial effusion/ thickening. No significant [place] ry artery calcifications. PULMONARY ARTERIES: No pulmonary emboli are visualized. The distal segmental and subsegmental pulmon emmanuel arteries are not well evaluated in the left lower lobe due to respiratory motion. HILAR AND MEDIASTINAL STRUCTURES: No identified masses or abnormal nodes. HARDWARE: None in the chest. UPPER ABDOMEN: Bilateral renal atrophy, stable from prior. THYROID AND OTHER SOFT TISSUES: No masses. No adenopathy. BONES: No acute or significant finding. 3D MIPS: Confirm above findings. OTHER: No other significant finding. IMPRESSION: 1. Moderate right pleural effusion with compressive atelectasis/consolidation at the right lung base. 2. No pulmonary embolism. COMMENT: Quality ID # [id number]: Final reports with documentation of one or more dose reduction techniques (e.g., Automated exposure control, adjustment of the mA and/or kV according to patient size, use of iterative reconstruction technique) TECHNICAL DOCUMENTATION: JOB ID: [id number] 2010 [employer]- All Rights Reserved Reading location - IP/workstation name: [email or web address]
[2019-10-01] MEDS: NORMAL SALINE 1000 ML 1,000 ML IV PRN (23:19)
[2019-10-01] MEDS: CARVEDILOL 6.25 MG TABLET PO SCH (23:23)
[2019-10-01] MEDS: LEVETIRACETAM 500 MG TABLET PO SCH (23:23)
[2019-10-01] MEDS: TACROLIMUS ANHYDROUS 1 MG CAPSULE PO SCH (23:24)
[2019-10-02] MEDS: TRAMADOL HCL 50 MG TABLET PO PRN (00:42)
[2019-10-02] MEDS: MORPHINE SULFATE 10 MG/ML INJ IV PRN ×3 (03:24→19:06)
[2019-10-02 05:44] LABS: HEMATOCRIT 40.7 % (37.9-51.0); HEMOGLOBIN 14.1 g/dL (13.5-17.0); MEAN CORPUSCULAR HEMOGLOBIN 30.8 pg (27.0-33.4); MEAN CORPUSCULAR HGB CONC 34.5 g/dL (32.0-36.0); MEAN CORPUSCULAR VOLUME 89 fl (80-97); PLATELET COUNT 246 10^3/uL (150-450); RED BLOOD COUNT 4.56 10^6/uL (4.35-5.55); RED CELL DISTRIBUTION WIDTH 12.3 % (11.5-14.0); WHITE BLOOD COUNT 12.2 10^3/uL (4.0-10.5)
[2019-10-02 05:51] LABS: INTERNATIONAL RATION (INR) 0.96; PARTIAL THROMBOPLASTIN TIME 39.2 SEC (23.5-35.8); PROTHROMBIN TIME 12.8 SEC (11.4-15.4)
[2019-10-02 05:57] LABS: ALBUMIN 2.3 g/dL (3.5-5.0); ALKALINE PHOSPHATASE 249 U/L (38-126); ANION GAP 6 (5-19); ASPARTATE AMINO TRANSFERASE 50 U/L (17-59); BILIRUBIN,DIRECT 0.1 mg/dL (0.0-0.4); BILIRUBIN,TOTAL 0.6 mg/dL (0.2-1.3); BLOOD UREA NITROGEN 29 mg/dL (7-20); CALCIUM 9.5 mg/dL (8.4-10.2); CARBON DIOXIDE 18 mmol/L (22-30); CHLORIDE 107 mmol/L (98-107); GLUCOSE 97 mg/dL (75-110); POTASSIUM 5.2 mmol/L (3.6-5.0); TOTAL PROTEIN 4.9 g/dL (6.3-8.2)
[2019-10-02 06:22] LABS: ABSOLUTE LYMPHOCYTES# (MANUAL) 0.1 10^3/uL (0.5-4.7); ABSOLUTE MONOCYTES # (MANUAL) 0.7 10^3/uL (0.1-1.4); BASOPHILS % (MANUAL) 0 % (0-2); EOSINOPHILS % (MANUAL) 2 % (0-6); LYMPHOCYTES % (MANUAL) 1 % (13-45); MONOCYTES % (MANUAL) 6 % (3-13); SEGMENTED NEUTROPHILS % (MAN) 91 % (42-78); TOTAL CELLS COUNTED 100
[2019-10-02 06:24] LABS: TOXIC GRANULATION SLIGHT
[2019-10-02 06:25] LABS: BURR CELLS SLIGHT; OVALOCYTES SLIGHT; PLATELET COMMENT ADEQUATE; POIKILOCYTOSIS SLIGHT
[2019-10-02] MEDS: ENOXAPARIN SODIUM INJ 40 MG/0.4 ML DISP.SYRIN SUBCUT SCH (09:54)
--- NOTE | 2019-10-02 11:02 | RADIOLOGY REPORT (SQ) ---
EXAM DESCRIPTION: U/S THORACENTESIS WITH IMAGING IMAGES COMPLETED DATE/TIME: 10/02/2019 10:48 am REASON FOR STUDY: right pleural effusion COMPARISON: Chest CTA 10/01/2019 RADIATION DOSE: None LIMITATIONS: None. PROCEDURE: Procedure, risks, benefit, and alternative explained to patient who then gave written con sent. The posterior right chest wall was marked using ultrasound guidance. A time-out was called fo r correct marking verification. Chest prepped and draped using sterile technique. Local anesthesia a chieved using 7 ml of 1% lidocaine injection. A 6 Fr Safe-T- Centesis set was introduced into the [facility] pleural space. Fluid was aspirated. The catheter was removed and the entry site was covered wit h sterile bandage. No immediate complications noted. Images acquired during the procedure were stored on PACS. FINDINGS: ENTRY SITE: Posterior right chest. FLUID VOLUME: 900 mL FLUID ANALYSIS: Clear jose colored fluid. OTHER: Fluid sent to the lab for testing. IMPRESSION: SUCCESSFUL THORACENTESIS USING ULTRASOUND GUIDANCE. COMMENT: Patient medication list reviewed: Yes- Quality ID# [id number]:Eligible professional attests to doc umenting in the medical record they obtained, updated, or reviewed the patient's current medications. TECHNICAL DOCUMENTATION: JOB ID: [id number] 2010 [employer]- All Rights Reserved Reading location - IP/workstation name: [email or web address] [id number]
--- NOTE | 2019-10-02 11:03 | RADIOLOGY REPORT (SQ) ---
EXAM DESCRIPTION: CHEST SINGLE VIEW IMAGES COMPLETED DATE/TIME: 10/02/2019 10:34 am REASON FOR STUDY: S/P RT THORACENTESIS COMPARISON: AP view of the chest from 10/01/2019. EXAM PARAMETERS: NUMBER OF VIEWS: One view. TECHNIQUE: An AP view of the chest was obtained. RADIATION DOSE: NA LIMITATIONS: None. FINDINGS: LUNGS AND PLEURA: Status post right-sided thoracentesis. The amount of pleural fluid in t he right hemithorax has decreased. There is no postprocedural pneumothorax. The radiographic appear ance of the chest is otherwise unchanged. MEDIASTINUM AND HILAR STRUCTURES: Stable mediastinal and hilar contours. HEART AND VASCULAR STRUCTURES: Stable cardiac silhouette. BONES: No acute findings. HARDWARE: None in the chest. OTHER: No other finding. IMPRESSION: No postprocedural pneumothorax. TECHNICAL DOCUMENTATION: JOB ID: [id number] 2010 [employer]- All Rights Reserved Reading location - IP/workstation name: [email or web address]
[2019-10-02] MEDS: AMLODIPINE BESYLATE 5 MG TABLET PO SCH (11:40)
[2019-10-02] MEDS: CARVEDILOL 6.25 MG TABLET PO SCH ×2 (11:40→22:04)
[2019-10-02] MEDS: LISINOPRIL 5 MG TABLET PO SCH (11:40)
[2019-10-02] MEDS: LEVOFLOXACIN 750 MG/D5W RTU 750 MG/150 ML RTUPB IV SCH (11:41)
[2019-10-02] MEDS: PREDNISONE 10 MG TABLET PO SCH (11:41)
[2019-10-02] MEDS: LEVETIRACETAM 500 MG TABLET PO SCH ×2 (11:41→22:04)
[2019-10-02] MEDS: MYCOPHENOLATE MOFETIL 250 MG CAPSULE PO SCH ×2 (11:41→19:00)
[2019-10-02] MEDS: TACROLIMUS ANHYDROUS 1 MG CAPSULE PO SCH ×2 (11:42→22:04)
[2019-10-02] MEDS: LIDOCAINE 5% (700 MG) TRANSDERMAL ADH..PATCH TP SCH (11:44)
[2019-10-02 11:49] LABS: FLUID SOURCE LUNG; FLUID TYPE PLEURAL
[2019-10-02 11:50] LABS: FLUID APPEARANCE CLOUDY; FLUID COLOR DARK YELLOW; FLUID VISCOSITY LIQUID
--- NOTE | 2019-10-02 13:01 | RADIOLOGY REPORT (SQ) ---
EXAM DESCRIPTION: CHEST SINGLE VIEW IMAGES COMPLETED DATE/TIME: 10/02/2019 12:46 pm REASON FOR STUDY: 2 HOURS S/P RT THORACENTESIS COMPARISON: AP view of the chest from 10/02/2019 at 1032 hours. EXAM PARAMETERS: NUMBER OF VIEWS: One view. TECHNIQUE: An AP view of the chest was obtained. RADIATION DOSE: NA LIMITATIONS: None. FINDINGS: LUNGS AND PLEURA: Unchanged radiographic appearance of the lungs and pleura. There is no postprocedural pneumothorax. MEDIASTINUM AND HILAR STRUCTURES: Stable mediastinal and hilar contours. HEART AND VASCULAR STRUCTURES: Stable cardiac silhouette. BONES: No acute findings. HARDWARE: None in the chest. OTHER: No other finding. IMPRESSION: No postprocedural pneumothorax. TECHNICAL DOCUMENTATION: JOB ID: [id number] 2010 [employer]- All Rights Reserved Reading location - IP/workstation name: [email or web address]
--- NOTE | 2019-10-02 13:12 | PDOC PROGRESS REPORT ---
Subjective Progress Note for:: 10/02/19 Subjective:: No adverse events overnight. No new complaints. Still has some right lower lateral chest discomfort. He is awaiting his thoracentesis this morning. His oxygenation is good on room air. His blood pressure is up a little bit. Reason For Visit: PLEURAL EFFUSION Physical Exam Vital Signs: Temp Pulse Resp BP Pulse Ox 98.5 F 81 17 158/83 H 94 10/02/19 12:25 10/02/19 12:25 10/02/19 12:25 10/02/19 12:25 10/02/19 12:25 Intake & Output 10/01/19 10/02/19 10/03/19 06:59 06:59 06:59 Intake Total 2250 420 Output Total 1160 Balance 1090 420 Weight 84.2 kg General appearance: PRESENT: no acute distress, cooperative, well-developed, well-nourished Respiratory exam: PRESENT: decreased breath sounds - Right base, unlabored. ABSENT: accessory muscle use, chest wall tenderness, crackles, prolonged expiratory phas, rhonchi, tachypnea, wheezes Cardiovascular exam: PRESENT: RRR, +S1, +S2 Pulses: PRESENT: normal carotid pulses Vascular exam: PRESENT: normal capillary refill GI/Abdominal exam: PRESENT: normal bowel sounds, soft. ABSENT: distended, guarding, rebound, tenderness Extremities exam: ABSENT: clubbing, pedal edema Musculoskeletal exam: PRESENT: normal inspection. ABSENT: deformity Neurological exam: PRESENT: alert, awake, oriented to person, oriented to place, oriented to time, oriented to situation Psychiatric exam: PRESENT: appropriate affect, normal mood Skin exam: PRESENT: dry, warm Results Laboratory Results: 10/02/19 04:46 10/02/19 04:46 10/01/19 10/01/19 10/01/19 13:22 13:22 13:22 WBC 14.0 H RBC 5.15 Hgb 16.0 Hct 46.2 MCV 90 MCH 31.0 MCHC 34.5 RDW 12.5 Plt Count 275 Seg Neutrophils % Not Reportable Sodium 129.5 L Potassium 5.3 H Chloride 105 Carbon Dioxide 19 L Anion Gap 6 BUN 27 H Creatinine 1.07 Est GFR ( Amer) > 60 Glucose 153 H Lactic Acid Calcium 10.0 Magnesium Total Bilirubin 1.0 AST 58 Alkaline Phosphatase 342 H Total Protein 5.5 L Albumin 2.8 L Urine Color YELLOW Urine Appearance CLEAR Urine pH 5.0 Ur Specific [place] 1.010 Urine Protein 100 H Urine Glucose (UA) NEGATIVE Urine Ketones NEGATIVE Urine Blood SMALL H Urine Nitrite NEGATIVE Ur Leukocyte Esterase NEGATIVE Urine WBC (Auto) 10 Urine RBC (Auto) 0 Fluid Type Fluid Source Fluid Color Fluid Appearance Fluid Viscosity Fluid WBC Fluid RBC 10/01/19 10/01/19 10/01/19 15:18 18:46 21:01 WBC RBC Hgb Hct MCV MCH MCHC RDW Plt Count Seg Neutrophils % Sodium Potassium Chloride Carbon Dioxide Anion Gap BUN Creatinine Est GFR ( Amer) Glucose Lactic Acid 0.5 L 0.8 0.7 Calcium Magnesium Total Bilirubin AST Alkaline Phosphatase Total Protein Albumin Urine Color Urine Appearance Urine pH Ur Specific [place] Urine Protein Urine Glucose (UA) Urine Ketones Urine Blood Urine Nitrite Ur Leukocyte Esterase Urine WBC (Auto) Urine RBC (Auto) Fluid Type Fluid Source Fluid Color Fluid Appearance Fluid Viscosity Fluid WBC Fluid RBC 10/02/19 10/02/19 10/02/19 04:46 04:46 10:15 WBC 12.2 H RBC 4.56 Hgb 14.1 Hct 40.7 MCV 89 MCH 30.8 MCHC 34.5 RDW 12.3 Plt Count 246 Seg Neutrophils % Not Reportable Sodium 130.6 L Potassium 5.2 H Chloride 107 Carbon Dioxide 18 L Anion Gap 6 BUN 29 H Creatinine 1.24 Est GFR ( Amer) > 60 Glucose 97 Lactic Acid Calcium 9.5 Magnesium 1.9 Total Bilirubin 0.6 AST 50 Alkaline Phosphatase 249 H Total Protein 4.9 L Albumin 2.3 L Urine Color Urine Appearance Urine pH Ur Specific [place] Urine Protein Urine Glucose (UA) Urine Ketones Urine Blood Urine Nitrite Ur Leukocyte Esterase Urine WBC (Auto) Urine RBC (Auto) Fluid Type PLEURAL Fluid Source LUNG Fluid Color DARK YELLOW Fluid Appearance CLOUDY Fluid Viscosity LIQUID Fluid WBC 5133 Fluid RBC [id number] 10/01/19 13:22 NT-Pro-B Natriuret Pep 1040 H Impressions: Chest/Abdomen CTA 10/01/19 16:51 IMPRESSION: 1. Moderate right pleural effusion with compressive atelectasis/consolidation at the right lung base. 2. No pulmonary embolism. Thoracentesis Ultrasound 10/02/19 00:00 IMPRESSION: SUCCESSFUL THORACENTESIS USING ULTRASOUND GUIDANCE. Chest X-Ray 10/02/19 12:30 IMPRESSION: No postprocedural pneumothorax. Assessment and Plan - Diagnosis (1) Chest pain, pleuritic Is this a current diagnosis for this admission?: Yes Plan: Due to his pleural effusion. This should improve after the effusion is drained. (2) Hypertension Qualifiers: Hypertension type: essential hypertension Qualified Code(s): I10 - Essential (primary) hypertension Is this a current diagnosis for this admission?: Yes Plan: We have continued his home medications. We will monitor how well he responds to them. (3) Pleural effusion, right Is this a current diagnosis for this admission?: Yes Plan: Thoracentesis is pending. Tests have been ordered on the fluid to determine the etiology. (4) Pneumonia Qualifiers: Pneumonia type: due to unspecified organism Laterality: right Lung location: lower lobe of lung Qualified Code(s): J18.9 - Pneumonia, unspecified organism Is this a current diagnosis for this admission?: Yes Plan: Empirically on antibiotics in case this is a parapneumonic effusion. He did have a leukocytosis when he came in, he was started on Levaquin, and his white blood cell count has improved. He does not have a fever. (5) Renal transplant recipient Is this a current diagnosis for this admission?: Yes Plan: We have continued his transplant anti-rejection medications (6) Seizure disorder Is this a current diagnosis for this admission?: Yes Plan: Continue Keppra (7) Hyponatremia Is this a current diagnosis for this admission?: Yes Plan: Mild and stable, will monitor for now - Time Time Spent with patient: 15-24 minutes
[2019-10-02] MEDS: NORMAL SALINE 1000 ML 1,000 ML IV PRN (14:26)
[2019-10-03] MEDS: NORMAL SALINE 1000 ML 1,000 ML IV PRN ×2 (00:50→14:32)
[2019-10-03] MEDS: TRAMADOL HCL 50 MG TABLET PO PRN (05:32)
[2019-10-03] MEDS: MORPHINE SULFATE 10 MG/ML INJ IV PRN ×2 (07:51→22:09)
[2019-10-03] MEDS: LEVOFLOXACIN 750 MG/D5W RTU 750 MG/150 ML RTUPB IV SCH (09:47)
[2019-10-03] MEDS: ENOXAPARIN SODIUM INJ 40 MG/0.4 ML DISP.SYRIN SUBCUT SCH (09:50)
[2019-10-03] MEDS: TACROLIMUS ANHYDROUS 1 MG CAPSULE PO SCH ×2 (09:51→22:10)
[2019-10-03] MEDS: LISINOPRIL 5 MG TABLET PO SCH (09:51)
[2019-10-03] MEDS: AMLODIPINE BESYLATE 5 MG TABLET PO SCH (09:51)
[2019-10-03] MEDS: CARVEDILOL 6.25 MG TABLET PO SCH ×2 (09:51→22:10)
[2019-10-03] MEDS: LEVETIRACETAM 500 MG TABLET PO SCH ×2 (09:51→22:10)
[2019-10-03] MEDS: PREDNISONE 10 MG TABLET PO SCH (09:51)
[2019-10-03] MEDS: MYCOPHENOLATE MOFETIL 250 MG CAPSULE PO SCH ×2 (09:52→17:04)
[2019-10-03] MEDS: LIDOCAINE 5% (700 MG) TRANSDERMAL ADH..PATCH TP SCH (09:54)
--- NOTE | 2019-10-03 17:15 | PDOC PROGRESS REPORT ---
Subjective Progress Note for:: 10/03/19 Subjective:: No adverse events overnight. No new complaints. Vital signs been stable. Breathing has been comfortable. Still has a little bit of discomfort in the right lateral chest but it is minimal. Reason For Visit: PLEURAL EFFUSION Physical Exam Vital Signs: Temp Pulse Resp BP Pulse Ox 98.4 F 69 18 149/89 H 96 10/03/19 16:00 10/03/19 16:00 10/03/19 16:00 10/03/19 16:00 10/03/19 16:00 Intake & Output 10/02/19 10/03/19 10/04/19 06:59 06:59 06:59 Intake Total 2250 4074 2220 Output Total 1160 1800 Balance 1090 2274 2220 Weight 84.2 kg 83.6 kg General appearance: PRESENT: no acute distress, cooperative, well-developed, well-nourished Respiratory exam: PRESENT: Clear to auscultation bilaterally, unlabored. ABSENT: accessory muscle use, chest wall tenderness, crackles, prolonged e xpiratory phas, rhonchi, tachypnea, wheezes Cardiovascular exam: PRESENT: RRR, +S1, +S2 Pulses: PRESENT: normal carotid pulses Vascular exam: PRESENT: normal capillary refill GI/Abdominal exam: PRESENT: normal bowel sounds, soft. ABSENT: distended, guarding, rebound, tenderness Extremities exam: ABSENT: clubbing, pedal edema Musculoskeletal exam: PRESENT: normal inspection. ABSENT: deformity Neurological exam: PRESENT: alert, awake, oriented to person, oriented to place, oriented to time, oriented to situation Psychiatric exam: PRESENT: appropriate affect, normal mood Skin exam: PRESENT: dry, warm Results Laboratory Results: 10/02/19 04:46 10/02/19 04:46 10/02/19 10/02/19 10/02/19 10:15 10:15 10:15 Fluid pH Fluid Glucose 106 Fluid Total Protein Fluid LDH 462 Fluid Amylase 26 10/02/19 10/02/19 10:15 10:15 Fluid pH 8.0 Fluid Glucose Fluid Total Protein 2.5 Fluid LDH Fluid Amylase 10/02/19 10:15 Pleural Fluid - Right Pleural Effusion AFB Smear Concentration - Final 10/02/19 10:15 Pleural Fluid - Right Pleural Effusion Acid Fast Bacilli Smear - Final 10/01/19 13:22 NT-Pro-B Natriuret Pep 1040 H Impressions: Chest/Abdomen CTA 10/01/19 16:51 IMPRESSION: 1. Moderate right pleural effusion with compressive atelectasis/consolidation at the right lung base. 2. No pulmonary embolism. Thoracentesis Ultrasound 10/02/19 00:00 IMPRESSION: SUCCESSFUL THORACENTESIS USING ULTRASOUND GUIDANCE. Chest X-Ray 10/02/19 12:30 IMPRESSION: No postprocedural pneumothorax. Assessment and Plan - Diagnosis (1) Chest pain, pleuritic Is this a current diagnosis for this admission?: Yes Plan: He has been on antibiotics in case he empirically has a pneumonia, he had 900 mL's of fluid drawn off yesterday. He has had improvement in his chest discomfort. (2) Hypertension Qualifiers: Hypertension type: essential hypertension Qualified Code(s): I10 - Ess ential (primary) hypertension Is this a current diagnosis for this admission?: Yes Plan: We have continued his home medications. We will monitor how well he responds to them. (3) Pleural effusion, right Is this a current diagnosis for this admission?: Yes Plan: Based on lights criteria, this would be considered an exudate. Cytology was negative except for some inflammatory cells. Nothing is grown out of cultures. AFB smear was negative. He is on empiric antibiotics in case this is a parapneumonic exudate. Another possibility is a small pulmonary infarct that generated inflammatory response and fluid generation. He is a current every day smoker with a history of a renal transplant on immunosuppressive medications, and he has evidence of pulmonary emphysema on CT, so this is a possibility. (4) Pneumonia Qualifiers: Pneumonia type: due to unspecified organism Laterality: right Lung location: lower lobe of lung Qualified Code(s): J18.9 - Pneumonia, unspecified organism Is this a current diagnosis for this admission?: Yes Plan: Empirically on antibiotics in case this is a parapneumonic effusion. He did have a leukocytosis when he came in, he was started on Levaquin, and his white blood cell count has improved. He does not have a fever. Following up CBC in the morning. (5) Renal transplant recipient Is this a current diagnosis for this admission?: Yes Plan: We have continued his transplant anti-rejection medications (6) Seizure disorder Is this a current diagnosis for this admission?: Yes Plan: Continue Keppra (7) Hyponatremia Is this a current diagnosis for this admission?: Yes Plan: Mild and stable, will monitor for now - Time Time Spent with patient: 25-34 minutes
[2019-10-04] MEDS: NORMAL SALINE 1000 ML 1,000 ML IV PRN (03:05)
[2019-10-04] MEDS: TRAMADOL HCL 50 MG TABLET PO PRN (04:48)
[2019-10-04 05:28] LABS: HEMATOCRIT 41.3 % (37.9-51.0); HEMOGLOBIN 14.2 g/dL (13.5-17.0); MEAN CORPUSCULAR HEMOGLOBIN 30.9 pg (27.0-33.4); MEAN CORPUSCULAR HGB CONC 34.4 g/dL (32.0-36.0); MEAN CORPUSCULAR VOLUME 90 fl (80-97); PLATELET COUNT 240 10^3/uL (150-450); RED BLOOD COUNT 4.61 10^6/uL (4.35-5.55); RED CELL DISTRIBUTION WIDTH 12.5 % (11.5-14.0)
[2019-10-04 06:05] LABS: ABSOLUTE LYMPHOCYTES# (MANUAL) 0.8 10^3/uL (0.5-4.7); ABSOLUTE MONOCYTES # (MANUAL) 0.6 10^3/uL (0.1-1.4); BAND NEUTROPHILS % (MANUAL) 1 % (3-5); BASOPHILS % (MANUAL) 0 % (0-2); EOSINOPHILS % (MANUAL) 0 % (0-6); LYMPHOCYTES % (MANUAL) 7 % (13-45); MONOCYTES % (MANUAL) 5 % (3-13); SEGMENTED NEUTROPHILS % (MAN) 87 % (42-78); TOTAL CELLS COUNTED 100
[2019-10-04 06:07] LABS: OVALOCYTES SLIGHT; PLATELET COMMENT ADEQUATE; POIKILOCYTOSIS SLIGHT; SCHISTOCYTES SLIGHT; TEAR DROP CELLS SLIGHT; TOXIC GRANULATION SLIGHT
[2019-10-04] MEDS: CARVEDILOL 6.25 MG TABLET PO SCH (09:09)
[2019-10-04] MEDS: LEVETIRACETAM 500 MG TABLET PO SCH (09:09)
[2019-10-04] MEDS: ENOXAPARIN SODIUM INJ 40 MG/0.4 ML DISP.SYRIN SUBCUT SCH (09:10)
[2019-10-04] MEDS: LISINOPRIL 5 MG TABLET PO SCH (09:10)
[2019-10-04] MEDS: AMLODIPINE BESYLATE 5 MG TABLET PO SCH (09:10)
[2019-10-04] MEDS: PREDNISONE 10 MG TABLET PO SCH (09:10)
[2019-10-04] MEDS: LEVOFLOXACIN 750 MG/D5W RTU 750 MG/150 ML RTUPB IV SCH (09:11)
[2019-10-04] MEDS: MYCOPHENOLATE MOFETIL 250 MG CAPSULE PO SCH (09:12)
[2019-10-04] MEDS: TACROLIMUS ANHYDROUS 1 MG CAPSULE PO SCH (09:12)
[2019-10-04] MEDS: LIDOCAINE 5% (700 MG) TRANSDERMAL ADH..PATCH TP SCH (09:13)
[2019-10-04] MEDS: MORPHINE SULFATE 10 MG/ML INJ IV PRN (09:14)
[2019-10-04 12:07] VITALS: BP 150/86
--- NOTE | 2019-10-04 16:08 | PDOC DISCHARGE SUMMARY ---
Impression - Admit/DC Date/PCP Admission Date/Primary Care Provider: 10/01/19 15:08 Discharge Date: 10/04/19 - Discharge Diagnosis (1) Chest pain, pleuritic Is this a current diagnosis for this admission?: Yes (2) Hypertension Is this a current diagnosis for this admission?: Yes (3) Pleural effusion, right Is this a current diagnosis for this admission?: Yes (4) Pneumonia Is this a current diagnosis for this admission?: Yes (5) Renal transplant recipient Is this a current diagnosis for this admission?: Yes (6) Seizure disorder Is this a current diagnosis for this admission?: Yes (7) Hyponatremia Is this a current diagnosis for this admission?: Yes - Additional Information Resuscitation Status: Full Code Discharge Diet: Cardiac Discharge Activity: Activity As Tolerated Referrals: GIRMA ZENG MD [ACTIVE STAFF] - 10/10/19 10:15 am (1-2 weeks for consult re: right pleural exudative effusion) Prescriptions: Levofloxacin [Levaquin 750 mg Tablet] 750 mg PO DAILY #7 tablet Home Medications: Mycophenolate Sodium [Myfortic 180 mg Tablet.dr] 720 mg PO BID 08/09/17 Tacrolimus [Prograf] 2 mg PO Q12 08/09/17 Levetiracetam [Keppra 500 mg Tablet] 500 mg PO Q12 #30 tablet 08/10/17 Prednisone 10 mg PO DAILY 10/20/18 Amlodipine Besylate [Norvasc 5 mg Tablet] 5 mg PO DAILY 10/01/19 Carvedilol [Coreg 6.25 mg Tablet] 6.25 mg PO Q12 10/01/19 Lisinopril [Prinivil 5 mg Tablet] 5 mg PO DAILY 10/01/19 Levofloxacin [Levaquin 750 mg Tablet] 750 mg PO DAILY #7 tablet 10/04/19 History of Present Illiness History of Present Illness: HAYLEE MORELAND is a 29 year old male with a history of ESRD S/P renal transplant 4 years ago, hypertension, seizures, who presents to the hospital with complaint of right-sided chest pain. Pain started few weeks ago and has been progressively worsening. Exacerbated by movement and deep breathing. No alleviating factors. Chest pain is sharp without much radiation. Gets as bad as a 7 8 or 8/10. Denies any shortness of breath, cough, nausea or vomiting. Denies any runny nose. Denies any sick contacts. Denies any history of blood clots in the family or before. Hospital Course Hospital Course: He was started empirically on antibiotics. CTA of the chest was negative for embolus. It did show some signs of moderate COPD. Patient is an every day smoker and said he is down to about half a pack a day and is trying to quit. He had a thoracentesis done and 900 mL's of fluid were drained off. Gram stain and culture was negative. Fungal cultures were drawn but there was no fungus seen on the Gram stain. No AFB were seen on smear. The fluid did have an appearance of an exudate based on light's criteria. After the thoracentesis he had improvement in his chest discomfort and his breathing. It was decided to send him home on some antibiotics in case this was parapneumonic, and to have him follow-up with Dr. Zeng as an outpatient for consultation. One possibility in this gentleman is that he had a small clot that caused necrosis with subsequent generation of an exudative effusion. I have strongly recommended that he quit smoking, because of the overall deleterious consequences to his health, because of his history of a kidney transplant on transplant rejection drugs and subsequent immunosuppression, and because of his evidence of de velopment of moderate COPD on imaging. He verbalizes understanding. His labs and examination were reassuring and he was discharged in stable condition. Physical Exam Vital Signs: Temp Pulse Resp BP Pulse Ox 98.1 F 73 17 150/86 H 96 10/04/19 12:03 10/04/19 12:03 10/04/19 12:03 10/04/19 12:03 10/04/19 12:03 Intake & Output 10/03/19 10/04/19 10/05/19 06:59 06:59 06:59 Intake Total 4074 3696 850 Output Total 1800 Balance 2274 3696 850 Weight 83.6 kg 83.6 kg General appearance: PRESENT: no acute distress, cooperative, well-developed, well-nourished Respiratory exam: PRESENT: Clear to auscultation bilaterally, unlabored. ABSENT: accessory muscle use, chest wall tenderness, crackles, prolonged expiratory phas, rhonchi, tachypnea, wheezes Cardiovascular exam: PRESENT: RRR, +S1, +S2 Pulses: PRESENT: normal carotid pulses Vascular exam: PRESENT: normal capillary refill GI/Abdominal exam: PRESENT: normal bowel sounds, soft. ABSENT: distended, guarding, rebound, tenderness Extremities exam: ABSENT: clubbing, pedal edema Musculoskeletal exam: PRESENT: normal inspection. ABSENT: deformity Neurological exam: PRESENT: alert, awake, oriented to person, oriented to place, oriented to time, oriented to situation Psychiatric exam: PRESENT: appropriate affect, normal mood Skin exam: PRESENT: dry, warm Results Laboratory Results: WBC 12.0 10^3/uL (4.0-10.5) H 10/04/19 04:48 RBC 4.61 10^6/uL (4.35-5.55) 10/04/19 04:48 Hgb 14.2 g/dL (13.5-17.0) 10/04/19 04:48 Hct 41.3 % (37.9-51.0) 10/04/19 04:48 MCV 90 fl (80-97) 10/04/19 04:48 MCH 30.9 pg (27.0-33.4) 10/04/19 04:48 MCHC 34.4 g/dL (32.0-36.0) 10/04/19 04:48 RDW 12.5 % (11.5-14.0) 10/04/19 04:48 Plt Count 240 10^3/uL (150-450) 10/04/19 04:48 Lymph % (Auto) Not Reportable 10/04/19 04:48 [place] % (Auto) Not Reportable 10/04/19 04:48 Eos % (Auto) Not Reportable 10/04/19 04:48 Baso % (Auto) Not Reportable 10/04/19 04:48 Absolute Neuts (auto) Not Reportable 10/04/19 04:48 Absolute Lymphs (auto) Not Reportable 10/04/19 04:48 Absolute Monos (auto) Not Reportable 10/04/19 04:48 Absolute Eos (auto) Not Reportable 10/04/19 04:48 Absolute Basos (auto) Not Reportable 10/04/19 04:48 Total Counted 100 10/04/19 04:48 Seg Neutrophils % Not Reportable 10/04/19 04:48 Seg Neuts % (Manual) 87 % (42-78) H 10/04/19 04:48 Band Neutrophils % 1 % (3-5) L 10/04/19 04:48 Lymphocytes % (Manual) 7 % (13-45) L 10/04/19 04:48 Atypical Lymphs % 1 % (0) 10/01/19 13:22 Monocytes % (Manual) 5 % (3-13) 10/04/19 04:48 Eosinophils % (Manual) 0 % (0-6) 10/04/19 04:48 Basophils % (Manual) 0 % (0-2) 10/04/19 04:48 Abs Neuts (Manual) 10.6 10^3/uL (1.7-8.2) H 10/04/19 04:48 Abs Lymphs (Manual) 0.8 10^3/uL (0.5-4.7) 10/04/19 04:48 Abs Monocytes (Manual) 0.6 10^3/uL (0.1-1.4) 10/04/19 04:48 Absolute Eos (Manual) 0.0 10^3/uL (0.0-0.6) 10/04/19 04:48 Abs Basophils (Manual) 0.0 10^3/uL (0.0-0.2) 10/04/19 04:48 Toxic Granulation SLIGHT 10/04/19 04:48 Platelet Comment ADEQUATE 10/04/19 04:48 Poikilocytosis SLIGHT 10/04/19 04:48 Tear Drop Cells SLIGHT 10/04/19 04:48 Ovalocytes SLIGHT 10/04/19 04:48 [place] Cells SLIGHT 10/02/19 04:46 Schistocytes SLIGHT 10/04/19 04:48 RBC Morph Comment NORMO-CYTIC/CHROMIC 10/01/19 13:22 PT 12.8 SEC (11.4-15.4) 10/02/19 04:46 INR 0.96 10/02/19 04:46 APTT 39.2 SEC (23.5-35.8) H 10/02/19 04:46 Sodium 130.6 mmol/L (137-145) L 10/02/19 04:46 Potassium 5.2 mmol/L (3.6-5.0) H 10/02/19 04:46 Chloride 107 mmol/L (98-107) 10/02/19 04:46 Carbon Dioxide 18 mmol/L (22-30) L 10/02/19 04:46 Anion Gap 6 (5-19) 10/02/19 04:46 BUN 29 mg/dL (7-20) H 10/02/19 04:46 Creatinine 1.24 mg/dL (0.52-1.25) 10/02/19 04:46 Est GFR ( Amer) > 60 (>60) 10/02/19 04:46 Est GFR (MDRD) Non-Af > 60 (>60) 10/02/19 04:46 Glucose 97 mg/dL (75-110) 10/02/19 04:46 Lactic Acid 0.7 mmol/L (0.7-2.1) 10/01/19 21:01 Calcium 9.5 mg/dL (8.4-10.2) 10/02/19 04:46 Magnesium 1.9 mg/dL (1.6-2.3) 10/02/19 04:46 Total Bilirubin 0.6 mg/dL (0.2-1.3) 10/02/19 04:46 Direct Bilirubin 0.1 mg/dL (0.0-0.4) 10/02/19 04:46 Neonat Total Bilirubin Not Reportable 10/02/19 04:46 Neonat Direct Bilirubin Not Reportable 10/02/19 04:46 Neonat Indirect Bili Not Reportable 10/02/19 04:46 AST 50 U/L (17-59) 10/02/19 04:46 ALT 36 U/L (<50) 10/02/19 04:46 Alkaline Phosphatase 249 U/L (38-126) H 10/02/19 04:46 Lactate Dehydrogenase 116 U/L (120-246) L 10/02/19 04:46 NT-Pro-B Natriuret Pep 1040 pg/mL (<125) H 10/01/19 13:22 Total Protein 4.9 g/dL (6.3-8.2) L 10/02/19 04:46 Albumin 2.3 g/dL (3.5-5.0) L 10/02/19 04:46 Urine Color YELLOW 10/01/19 13:22 Urine Appearance CLEAR 10/01/19 13:22 Urine pH 5.0 (5.0-9.0) 10/01/19 13:22 Ur Specific [place] 1.010 10/01/19 13:22 Urine Protein 100 mg/dL (NEGATIVE) H 10/01/19 13:22 Urine Glucose (UA) NEGATIVE mg/dL (NEGATIVE) 10/01/19 13:22 Urine Ketones NEGATIVE mg/dL (NEGATIVE) 10/01/19 13:22 Urine Blood SMALL (NEGATIVE) H 10/01/19 13:22 Urine Nitrite NEGATIVE (NEGATIVE) 10/01/19 13:22 Urine Bilirubin NEGATIVE (NEGATIVE) 10/01/19 13:22 Urine Urobilinogen NEGATIVE mg/dL (<2.0) 10/01/19 13:22 Ur Leukocyte Esterase NEGATIVE (NEGATIVE) 10/01/19 13:22 Urine WBC (Auto) 10 /HPF 10/01/19 13:22 Urine RBC (Auto) 0 /HPF 10/01/19 13:22 Squamous Epi Cells Auto 3 /HPF 10/01/19 13:22 Urine Mucus (Auto) RARE /LPF 10/01/19 13:22 Urine Ascorbic Acid NEGATIVE (NEGATIVE) 10/01/19 13:22 Fluid Type PLEURAL 10/02/19 10:15 Fluid Source LUNG 10/02/19 10:15 Fluid Color DARK YELLOW 10/02/19 10:15 Fluid Appearance CLOUDY 10/02/19 10:15 Fluid Viscosity LIQUID 10/02/19 10:15 Fluid pH 8.0 (Not Estab.) 10/02/19 10:15 Fluid WBC 5133 /uL 10/02/19 10:15 Fluid RBC 11872 /uL 10/02/19 10:15 Fluid Seg Neutrophils 73 % 10/02/19 10:15 Fluid Lymphocytes 7 % 10/02/19 10:15 Fluid Monocytes 16 % 10/02/19 10:15 Fluid Eosinophils 4 % 10/02/19 10:15 Fluid Basophils 0 % 10/02/19 10:15 Fluid Glucose 106 mg/dL (.) 10/02/19 10:15 Fluid Total Protein 2.5 g/dL (.) 10/02/19 10:15 Fluid LDH 462 IU/L (.) 10/02/19 10:15 Fluid Amylase 26 U/L (.) 10/02/19 10:15 COVID-19 Source Cancelled 10/01/19 15:52 COVID-19 (FAISAL) Cancelled 10/01/19 15:52 SARS-CoV-2 (PCR) NEGATIVE (NEGATIVE) 10/01/19 15:52 AFB Smear NO ACID FAST BACILLI (NO AFB SEEN) 10/02/19 10:15 10/01/19 13:22 NT-Pro-B Natriuret Pep 1040 H Impressions: Chest X-Ray 10/01/19 12:59 IMPRESSION: Pleural and parenchymal opacities in the inferior aspect of the right hemithorax that could represent a combination of pleural fluid, atelectasis and/or pneumonia. Chest/Abdomen CTA 10/01/19 16:51 IMPRESSION: 1. Moderate right pleural effusion with compressive atelectasis/consolidation at the right lung base. 2. No pulmonary embolism. Thoracentesis Ultrasound 10/02/19 00:00 IMPRESSION: SUCCESSFUL THORACENTESIS USING ULTRASOUND GUIDANCE. Chest X-Ray 10/02/19 10:30 IMPRESSION: No postprocedural pneumothorax. Chest X-Ray 10/02/19 12:30 IMPRESSION: No postprocedural pneumothorax. Plan Time Spent: Greater than 30 Minutes Stroke Is this a Stroke Patient?: No Acute Heart Failure - Is this a Heart Failure Patient?: No
== END 2019-10-04 12:45 | disposition home or self-care (01) | DRG 186 ==
LOC: ER 12:45 → EH 15:08 → 4N 21:08
PROVIDERS: ADMIT Internal Medicine; ATTEND Family Medicine
PROC: 0W993ZX Drainage of Right Pleural Cavity, Percutaneous Approach, Diagnostic (ICD-10-PCS; principal; 2019-10-02)
DX: J90 Pleural effusion, not elsewhere classified (principal); J18.9 Pneumonia, unspecified organism; Z94.0 Kidney transplant status; E87.1 Hypo-osmolality and hyponatremia; J44.0 Chronic obstructive pulmonary disease with (acute) lower respiratory infection; F17.210 Nicotine dependence, cigarettes, uncomplicated; J44.9 Chronic obstructive pulmonary disease, unspecified; I10 Essential (primary) hypertension; Z92.25 Personal history of immunosuppression therapy; G40.909 Epilepsy, unspecified, not intractable, without status epilepticus; Z84.1 Family history of disorders of kidney and ureter; Z79.899 Other long term (current) drug therapy; Z20.828 Contact with and (suspected) exposure to other viral communicable diseases
CPT/HCPCS: 32555; 36415; 71045; 71046; 71275; 80053; 81001; 82150; 82945; 83605; 83615; 83735; 83880; 83986; 84157; 85025; 85610; 85730; 87015; 87040; 87070; 87075; 87101; 87116; 87205; 87206; 87635; 88305; 89050; 96374; 96375; 99285; C9803; J1650; J1956; J2270; J2405; J2543; J7030; J7507; J7512; J7517

== ENCOUNTER 2019-10-11 15:55 | Inpatient (IN) | payer MEDICARE, MEDICAID ==
--- NOTE | 2019-10-11 17:42 | ER Document Report ---
ED Medical Screen (RME) - General Chief Complaint: Rib Pain Stated Complaint: SHORT OF BREATH,BACK AND RIB PAIN Time Seen by Provider: 10/11/19 17:36 Mode of Arrival: Ambulatory Information source: Patient Notes: HPI; 29-year-old male presents emergency room with persistent shortness of breath. Patient states he was admitted a week ago had a thoracentesis done saw his meteorology faculty member yesterday and received a call today from the meteorology faculty member that he needed to return to the emergency room as there was still too much fluid in his lungs. Patient is also a status post kidney transplant patient. PE: Alert and oriented x3. Mild distress noted. Lungs diminished in the right lower lobe. Heart: Regular rate rhythm without murmurs, rubs, gallops. I have greeted and performed a rapid initial assessment of this patient. A comprehensive ED assessment and evaluation of the patient, analysis of test results and completion of the medical decision making process will be conducted by additional ED providers. I have specifically instructed the patient or family members with the patient to immediately return to any nursing staff should anything change in the patient's condition or with their chief complaint. TRAVEL OUTSIDE OF THE [place] IN LAST 30 DAYS: No - Related Data Allergies/Adverse Reactions: No Known Allergies Allergy (Verified 10/11/19 17:35) Home Medications: atb. transplant medication Past Medical History - Social History Chew tobacco use (# tins/day): No Frequency of alcohol use: Occasional Drug Abuse: None - Past Medical History Cardiac Medical History: Reports: Hx Hypertension Neurological Medical History: Reports: Hx Seizures Renal/ Medical History: Denies: Hx Peritoneal Dialysis Psychiatric Medical History: Denies: Hx Depression Past Surgical History: Reports: Hx Kidney (Renal Surgery) - R transplant Physical Exam - Vital signs Vitals: Temp Pulse Resp BP Pulse Ox 98.4 F 89 20 146/79 H 97 10/11/19 15:59 10/11/19 15:59 10/11/19 15:59 10/11/19 15:59 10/11/19 15:59 Course - Vital Signs Vital signs: Temp Pulse Resp BP Pulse Ox 98.4 F 89 20 146/79 H 97 10/11/19 17:35 10/11/19 15:59 10/11/19 15:59 10/11/19 15:59 10/11/19 15:59
[2019-10-11 18:00] LABS: HEMOGLOBIN 15.5 g/dL (13.5-17.0); MEAN CORPUSCULAR HEMOGLOBIN 30.4 pg (27.0-33.4); MEAN CORPUSCULAR HGB CONC 33.7 g/dL (32.0-36.0); MEAN CORPUSCULAR VOLUME 90 fl (80-97); PLATELET COUNT 326 10^3/uL (150-450); RED CELL DISTRIBUTION WIDTH 12.6 % (11.5-14.0); WHITE BLOOD COUNT 19.4 10^3/uL (4.0-10.5)
--- NOTE | 2019-10-11 18:06 | RADIOLOGY REPORT (SQ) ---
EXAM DESCRIPTION: CHEST 2 VIEWS IMAGES COMPLETED DATE/TIME: 10/11/2019 5:53 pm REASON FOR STUDY: dyspnea COMPARISON: 10/02/2019 EXAM PARAMETERS: NUMBER OF VIEWS: two views TECHNIQUE: Digital Frontal and Lateral radiographic views of the chest acquired. RADIATION DOSE: NA LIMITATIONS: none FINDINGS: LUNGS AND PLEURA: Large right pleural effusion with compressive atelectasis of the right l paul. Left lung is clear. MEDIASTINUM AND HILAR STRUCTURES: No masses or contour abnormalities. HEART AND VASCULAR STRUCTURES: Heart normal size. No evidence for failure. BONES: No acute findings. HARDWARE: None in the chest. OTHER: No other significant finding. IMPRESSION: Large right pleural effusion increased over previous. TECHNICAL DOCUMENTATION: JOB ID: [id number] 2010 [employer]- All Rights Reserved Reading location - IP/workstation name: [email or web address]
[2019-10-11 18:09] LABS: ALBUMIN 2.7 g/dL (3.5-5.0); ALKALINE PHOSPHATASE 222 U/L (38-126); ANION GAP 6 (5-19); ASPARTATE AMINO TRANSFERASE 45 U/L (17-59); BILIRUBIN,DIRECT 0.3 mg/dL (0.0-0.4); BILIRUBIN,TOTAL 0.8 mg/dL (0.2-1.3); BLOOD UREA NITROGEN 33 mg/dL (7-20); CALCIUM 10.1 mg/dL (8.4-10.2); CARBON DIOXIDE 19 mmol/L (22-30); CHLORIDE 105 mmol/L (98-107); GLUCOSE 126 mg/dL (75-110); POTASSIUM 5.9 mmol/L (3.6-5.0); TOTAL PROTEIN 5.4 g/dL (6.3-8.2)
[2019-10-11 18:19] LABS: ABSOLUTE LYMPHOCYTES# (MANUAL) 0.6 10^3/uL (0.5-4.7); ABSOLUTE MONOCYTES # (MANUAL) 0.4 10^3/uL (0.1-1.4); BASOPHILS % (MANUAL) 0 % (0-2); EOSINOPHILS % (MANUAL) 0 % (0-6); LYMPHOCYTES % (MANUAL) 3 % (13-45); MONOCYTES % (MANUAL) 2 % (3-13); SEGMENTED NEUTROPHILS % (MAN) 95 % (42-78); TOTAL CELLS COUNTED 100
[2019-10-11 18:20] LABS: OVALOCYTES SLIGHT; PLATELET COMMENT ADEQUATE; POIKILOCYTOSIS SLIGHT
[2019-10-12] MEDS ORDERED: SODIUM BICARBONATE 8.4% INJ 50 MEQ/50 ML DISP.SYRIN IV ONE (00:24)
[2019-10-12] MEDS ORDERED: CALCIUM GLUCONATE 1000 MG/10 ML INJ IV ONE (00:24)
[2019-10-12] MEDS ORDERED: NORMAL SALINE 1000 ML 1,000 ML IV ONE (00:24)
[2019-10-12] MEDS ORDERED: DEXTROSE 50%-WATER 25 GM/50 ML DISP.SYRIN IV ONE (00:25)
[2019-10-12] MEDS ORDERED: INSULIN REG, HUMAN 100 UNIT/ML 3 ML VIAL (PYX) SUBCUT ONE (00:25)
--- NOTE | 2019-10-12 00:27 | ER Document Report ---
ED General - General Chief Complaint: Rib Pain Stated Complaint: SHORT OF BREATH,BACK AND RIB PAIN Time Seen by Provider: 10/11/19 17:36 Mode of Arrival: Ambulatory Notes: 29-year-old male presents emergency department complaining of right-sided chest pain, shortness of breath and orthopnea that is been worse for the past few days. Patient states he saw his glove turner and former today and was told to come to the hospital to have the pleural effusion drained. Patient was diagnosed with pleural effusion between a week and a week and a half ago, states that after it was drained he felt better but then has been getting progressively worse. Patient was discharged home, he finished his last dose of Levaquin today. State s that his glove turner and former says they were unable to tell exactly what was causing his effusion. Denies any fevers. Of note he did receive a kidney transplant approximately 4 and half years ago. Takes Prograf, mycophenolate and prednisone. His dose of prednisone has been decreasing. He does have chronic kidney disease, is not yet seeing Dr. Cowan although he has been referred to her. Does not have a primary care physician. TRAVEL OUTSIDE OF THE [place] IN LAST 30 DAYS: No - Related Data Allergies/Adverse Reactions: No Known Allergies Allergy (Verified 10/11/19 17:35) Home Medications: atb. transplant medication Past Medical History - General Information source: Patient - Social History Smoking Status: Current Every Day Smoker Chew tobacco use (# tins/day): No Frequency of alcohol use: Social Drug Abuse: None Family History: Hypertension, Other - ESRD in several members of the family Patient has homicidal ideation: No - Past Medical History Cardiac Medical History: Reports: Hx Hypertension Neurological Medical History: Reports: Hx Seizures - last over 1 yr ago Renal/ Medical History: Reports: Hx End Stage Renal Disease. Denies: Hx Peritoneal Dialysis Psychiatric Medical History: Denies: Hx Depression Past Surgical History: Reports: Hx Kidney (Renal Surgery) - R transplant Review of Systems - Review of Systems Constitutional: No symptoms reported EENT: No symptoms reported Cardiovascular: See HPI Respiratory: See HPI Gastrointestinal: No symptoms reported -: Yes All other systems reviewed and negative Physical Exam - Vital signs Vitals: Temp Pulse Resp BP Pulse Ox 98.4 F 89 20 146/79 H 97 10/11/19 15:59 10/11/19 15:59 10/11/19 15:59 10/11/19 15:59 10/11/19 15:59 Interpretation: Hypertensive - Notes Notes: GENERAL: Alert, interacts well. No acute distress. HEAD: Normocephalic, atraumatic EYES: Pupils equal, round and reactive to light, extraocular movements intact. ENT: Oral mucosa moist, tongue midline. NECK: Full range of motion, supple, trachea midline. LUNGS: Clear to auscultation bilaterally but greatly diminished in the right lower lobes, there is dullness to percussion in the right middle and lower lobes, no wheezes, rales or rhonchi, no respiratory distress. Complains of pain with a deep breath. HEART: Regular rate and rhythm, no murmurs, gallops, rubs. ABDOMEN: Soft, nontender, nondistended, bowel sounds present in all 4 quadrants. EXTREMITIES: Moves all 4 extremities spontaneously, no edema, radial and dorsalis pedis pulses 2/4 bilaterally. No cyanosis. NEUROLOGICAL: Alert and oriented x3, normal speech, biceps and patellar DTRs 2+ bilaterally. PSYCH: Normal mood, normal affect. SKIN: Warm, Dry, normal turgor, no rashes or lesions noted. Course - Re-evaluation Re-evalutation: 10/12/19 00:41 CBC shows worsening leukocytosis, CMP shows increasing potassium which is treated with insulin, dextrose, sodium bicarb and calcium gluconate as well as Lasix, BUN and creatinine are worsening as well, chest x-ray shows reaccumulation of the fluid. Patient is not currently in any respiratory distress. No indication for acutely draining the effusion this evening. Discussed with Dr. Shankar who accepts the patient to his service. He will arrange for drainage as an inpatient and likely culture of the fluid as well. - Vital Signs Vital signs: Temp Pulse Resp BP Pulse Ox 98.4 F 89 12 151/90 H 97 10/11/19 17:35 10/11/19 15:59 10/11/19 23:01 10/11/19 23:01 10/11/19 23:01 - Laboratory Result Diagrams: 10/11/19 17:45 10/11/19 17:45 Laboratory results interpreted by me: 10/11/19 10/11/19 17:45 17:45 WBC 19.4 H Seg Neuts % (Manual) 95 H Lymphocytes % (Manual) 3 L Monocytes % (Manual) 2 L Abs Neuts (Manual) 18.4 H Sodium 130.4 L Potassium 5.9 H Carbon Dioxide 19 L BUN 33 H Creatinine 1.50 H Est GFR (MDRD) Non-Af 55 L Glucose 126 H Alkaline Phosphatase 222 H Total Protein 5.4 L Albumin 2.7 L Discharge - Discharge Clinical Impression: Pleural effusion, right, Hyperkalemia, Hyponatremia, Renal transplant recipient CKD (chronic kidney disease) Qualifiers: Chronic kidney disease stage: stage 2 (mild) Qualified Code(s): N18.2 - Chronic kidney disease, stage 2 (mild) Condition: Fair Disposition: ADMITTED INPATIENT Admitting Provider: Vonnie (Hospitalist) Unit Admitted: Telemetry
[2019-10-12] MEDS ORDERED: ACETAMINOPHEN 325 MG TABLET PO PRN (00:51)
[2019-10-12] MEDS ORDERED: IPRATROPIUM/ALBUTEROL 0.5-2.5 MG/3 ML AMPUL NEB PRN (00:51)
[2019-10-12] MEDS ORDERED: PROMETHAZINE HCL INJ 25 MG/1 ML VIAL IV PRN (00:51)
[2019-10-12] MEDS ORDERED: ONDANSETRON HCL INJ/PF 4 MG/2 ML SDV IV PRN (00:51)
[2019-10-12] MEDS ORDERED: MAGNESIUM HYDROXIDE SUSP 30 ML UDCUP PO PRN (00:51)
--- NOTE | 2019-10-12 01:29 | PDOC H&P ---
History of Present Illness Admission Date/PCP: 10/12/19 00:36 History of Present Illness: HAYLEE MORELAND is a 29 year old male ESRD due to untreated hypertension, S/P live donor renal transplant 4 years ago, hypertension, seizures, who was recently discharged from [facility] after being admitted for right-sided pleural effusion. Patient had a right-sided thoracentesis and 900 cc fluid was removed, fluid analysis showed exudative pleural effusion, pleural fluid cultures returned back negative and cytology was negative for any malignancy patient was discharged home on levofloxacin 750 mg p.o. daily for another 7 days. 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 Patient is complaining of right-sided pleuritic chest pain sharp, 7/10 on severity scale, worse with breathing and movement, associated with shortness of breath. Denies any fever, headache, chills, nausea, vomiting, diarrhea, constipation, weight changes, orthopnea, paroxysmal nocturnal dyspnea or any urinary symptoms. In ED he was noted to have worsening leukocytosis, chest x-ray showed worsening right-sided pleural effusion hyperkalemia and EMA. Hospitalist was consulted for admission. Past Medical History Cardiac Medical History: Reports: Hypertension Neurological Medical History: Reports: Seizures - last over 1 yr ago Renal/ Medical History: Reports: End Stage Renal Disease Psychiatric Medical History: Denies: Depression Social History Smoking Status: Current Every Day Smoker Electronic Cigarette use?: No Frequency of Alcohol Use: Occasional Hx Recreational Drug Use: No Drugs: None Hx Prescription Drug Abuse: Yes - Hydrocodone Family History Family History: Hypertension, Other - ESRD in several members of the family Parental Family History Reviewed: Yes Children Family History Reviewed: Yes Sibling(s) Family History Reviewed.: Yes Medication/Allergy Home Medications: Mycophenolate Sodium [Myfortic 180 mg Tablet.dr] 720 mg PO BID 08/09/17 Tacrolimus [Prograf] 2 mg PO Q12 08/09/17 Levetiracetam [Keppra 500 mg Tablet] 500 mg PO Q12 #30 tablet 08/10/17 Prednisone 10 mg PO DAILY 10/20/18 Amlodipine Besylate [Norvasc 5 mg Tablet] 5 mg PO DAILY 10/01/19 Carvedilol [Coreg 6.25 mg Tablet] 6.25 mg PO Q12 10/01/19 Lisinopril [Prinivil 5 mg Tablet] 5 mg PO DAILY 10/01/19 Levofloxacin [Levaquin 750 mg Tablet] 750 mg PO DAILY #7 tablet 10/04/19 Allergies/Adverse Reactions: No Known Allergies Allergy (Verified 10/11/19 17:35) Review of Systems Review of Systems: as per hpi Physical Exam Vital Signs: Temp Pulse Resp BP Pulse Ox 98.4 F 89 12 151/90 H 97 10/11/19 17:35 10/11/19 15:59 10/11/19 23:01 10/11/19 23:01 10/11/19 23:01 Intake & Output 10/10/19 10/11/19 10/12/19 06:59 06:59 06:59 Weight 77.7 kg General appearance: PRESENT: no acute distress Head exam: PRESENT: atraumatic, normocephalic Respiratory exam: PRESENT: decreased breath sounds - Right-sided., other - Right-sided egophony. ABSENT: rales, rhonchi, wheezes Cardiovascular exam: PRESENT: RRR. ABSENT: diastolic murmur, rubs, systolic murmur Pulses: PRESENT: normal dorsalis pedis pul GI/Abdominal exam: PRESENT: normal bowel sounds, soft. ABSENT: distended, guarding, mass, organolmegaly, rebound, tenderness Neurological exam: PRESENT: alert, awake, oriented to person, oriented to place, oriented to time, oriented to situation, CN II-XII grossly intact. ABSENT: motor sensory deficit Results Laboratory Results: 10/11/19 17:45 10/11/19 17:45 10/11/19 10/11/19 10/11/19 17:45 17:45 17:45 WBC 19.4 H RBC 5.10 Hgb 15.5 Hct 46.0 MCV 90 MCH 30.4 MCHC 33.7 RDW 12.6 Plt Count 326 Seg Neutrophils % Not Reportable Sodium 130.4 L Potassium 5.9 H Chloride 105 Carbon Dioxide 19 L Anion Gap 6 BUN 33 H Creatinine 1.50 H Est GFR ( Amer) > 60 Glucose 126 H Lactic Acid 0.8 Calcium 10.1 Total Bilirubin 0.8 AST 45 Alkaline Phosphatase 222 H Total Protein 5.4 L Albumin 2.7 L Impressions: Chest X-Ray 10/11/19 17:39 IMPRESSION: Large right pleural effusion increased over previous. Assessment and Plan - Diagnosis (1) Recurrent pleural effusion on right Is this a current diagnosis for this admission?: Yes Plan: Likely infectious process given exudative pleural effusion based on fluid analysis from previous admission. Cytology negative for any malignancy but given history of renal transplantation malignancy could be a possibility. Admit to telemetry, thoracentesis with pleural fluid analysis, cytology on pleural fluid culture, empiric IV antibiotics, sputum, blood culture. (2) Pneumonia Qualifiers: Pneumonia type: due to unspecified organism Laterality: right Lung location: lower lobe of lung Qualified Code(s): J18.9 - Pneumonia, unspecified organism Is this a current diagnosis for this admission?: Yes Plan: Likely healthcare associated pneumonia or unresolved pneumonia from previous hospitalization. Pleural fluid culture and blood culture negative from previous admission. Empiric broad-spectrum IV antibiotics, pleural fluid culture, sputum culture blood culture. (3) Acute kidney injury superimposed on CKD Is this a current diagnosis for this admission?: Yes Plan: Likely prerenal, history of lifelong renal transplant x4 years. Cautious volume restriction guided by volume status. Monitor electrolytes and replace as needed. Avoid nephrotoxic meds. (4) Hyperkalemia Is this a current diagnosis for this admission?: Yes Plan: No acute EKG changes. Admit to telemetry. Hyperkalemia protocol. (5) Renal transplant recipient Is this a current diagnosis for this admission?: Yes Plan: History of left lower renal transplant x4 years. On steroids, mycophenolate mofetil and tacrolimus. Resume home meds. Patient PCP follow-up. (6) Chest pain, pleuritic Is this a current diagnosis for this admission?: Yes Plan: Pleuritic-type chest pain. Unlikely cardiac in origin. Likely due to right-si ded pleural effusion/pneumonia. EKG no changes. Thoracentesis and treat underlying pneumonia.
[2019-10-12] MEDS ORDERED: LINEZOLID 600 MG/300 ML RTUPB IV ONE ×2 (01:30→03:04)
[2019-10-12] MEDS ORDERED: LEVETIRACETAM 500 MG TABLET PO ONE (01:30)
[2019-10-12] MEDS ORDERED: CEFEPIME 1 GM/D5W RTU 1 GM/50 ML RTUPB IV ONE (01:30)
[2019-10-12] MEDS ORDERED: SODIUM POLYSTYRENE SULFONATE 15 GM/60 ML PO ONE (01:30)
[2019-10-12] MEDS ORDERED: CARVEDILOL 6.25 MG TABLET PO ONE (01:30)
[2019-10-12] MEDS ORDERED: DEXTROSE 5%-NORMAL SALINE 1,000 ML IV PRN (01:30)
[2019-10-12] MEDS ORDERED: DEXTROSE 40% GEL 15 GM TUBE PO PRN ×2 (01:32)
[2019-10-12] MEDS ORDERED: DEXTROSE 50%-WATER 25 GM/50 ML DISP.SYRIN IV PRN ×2 (01:32)
[2019-10-12] MEDS ORDERED: GLUCAGON,HUMAN RECOMB 1 MG INJ SUBCUT PRN (01:32)
[2019-10-12] MEDS ORDERED: NORMAL SALINE 1000 ML 1,000 ML IV PRN ×2 (01:33→11:46)
[2019-10-12] MEDS ORDERED: MYCOPHENOLATE MOFETIL 250 MG CAPSULE PO ONE (02:00)
[2019-10-12] MEDS ORDERED: TACROLIMUS ANHYDROUS 1 MG CAPSULE PO ONE (02:00)
[2019-10-12 02:13] LABS: INTERNATIONAL RATION (INR) 0.96; PROTHROMBIN TIME 12.8 SEC (11.4-15.4)
[2019-10-12] MEDS: OXYCODONE-ACETAMINOPHEN 5-325 MG TABLET PO PRN ×2 (02:25→20:14)
[2019-10-12] MEDS ORDERED: MYCOPHENOLATE MOFETIL 250 MG CAPSULE ONE (03:05)
[2019-10-12] MEDS: TEMAZEPAM 15 MG CAPSULE PO PRN (04:17)
[2019-10-12] MEDS: IPRATROPIUM/ALBUTEROL 0.5-2.5 MG/3 ML AMPUL NEB SCH ×3 (08:08→20:20)
[2019-10-12] MEDS: PREDNISONE 10 MG TABLET PO SCH (09:47)
[2019-10-12] MEDS: FAMOTIDINE 20 MG TABLET PO SCH ×2 (09:47→21:34)
[2019-10-12] MEDS: CARVEDILOL 6.25 MG TABLET PO SCH ×2 (09:47→21:34)
[2019-10-12] MEDS: LEVETIRACETAM 500 MG TABLET PO SCH ×2 (09:47→21:35)
[2019-10-12] MEDS: CEFEPIME 1 GM/D5W RTU 1 GM/50 ML RTUPB IV SCH ×2 (09:49→21:34)
[2019-10-12] MEDS: LINEZOLID 600 MG/300 ML RTUPB IV SCH ×2 (09:50→21:33)
[2019-10-12] MEDS ORDERED: MYCOPHENOLATE MOFETIL 250 MG CAPSULE PO SCH (10:00)
--- NOTE | 2019-10-12 11:51 | Progress Note ---
Provider Note Provider Note: Patient has been seen and evaluated by me this morning. Agree with plan as per admitting provider. Will check abdominal ultrasound as well. Patient is going down for thoracentesis today. Fluid analysis will be obtained as well as cytology. Antibiotics will be continued. Repeat BMP for evaluation of hyperkalemia. Patient states he has a history of hep C so I will also check hepatitis C serologies.
--- NOTE | 2019-10-12 12:18 | RADIOLOGY REPORT (SQ) ---
EXAM DESCRIPTION: CHEST SINGLE VIEW IMAGES COMPLETED DATE/TIME: 10/12/2019 12:06 pm REASON FOR STUDY: POST THORA COMPARISON: 10/11/2019 . EXAM PARAMETERS: NUMBER OF VIEWS: One view. TECHNIQUE: Single frontal radiographic view of the chest acquired. RADIATION DOSE: NA LIMITATIONS: None. FINDINGS: LUNGS AND PLEURA: there appears to be a large residual right pleural effusion with opacifi cation in the right base. There does not appear to be a significant interval change. There is no pn eumothorax. MEDIASTINUM AND HILAR STRUCTURES: No masses. Contour normal. HEART AND VASCULAR STRUCTURES: Heart normal in size. Normal vasculature. BONES: No acute findings. HARDWARE: None in the chest. OTHER: No other significant finding. IMPRESSION: No pneumothorax. Residual pleural effusion. Likely right lower lobe atelectasis. TECHNICAL DOCUMENTATION: JOB ID: [id number] 2010 [employer]- All Rights Reserved Reading location - IP/workstation name: [email or web address]
[2019-10-12] MEDS: TACROLIMUS ANHYDROUS 1 MG CAPSULE PO SCH ×2 (12:34→21:34)
--- NOTE | 2019-10-12 12:57 | RADIOLOGY REPORT (SQ) ---
EXAM DESCRIPTION: U/S ABDOMEN LTD W/DOPPLER IMAGES COMPLETED DATE/TIME: 10/12/2019 12:34 pm REASON FOR STUDY: right effusion, evaluate for cirrhosis/ascites. COMPARISON: CT ABDOMEN PELVIS 10/20/2018 TECHNIQUE: Dynamic and static grayscale images acquired of the abdomen and recorded on PACS. Additio nal selected color Doppler and spectral images recorded. LIMITATIONS: Midline bowel gas FINDINGS: Right lower quadrant transplant kidney 14.5 cm in length. Mild increased cortical echogen icity, normal cortical thickness. No hydronephrosis, cysts, or stones. Resistive index right lower quadrant transplant kidney renal artery at the hilum 0.85, intersegmental artery 0.72 (within normal range ) PANCREAS: Not well seen LIVER: No masses. Echotexture normal. LIVER VASCULATURE: Normal directional flow of the main portal vein and hepatic veins. GALLBLADDER: No stones. Normal wall thickness. No pericholecystic fluid. ULTRASOUND-DETECTED العلي'S SIGN: Negative. INTRAHEPATIC DUCTS AND COMMON DUCT: CBD and intrahepatic ducts normal caliber. No filling defects. INFERIOR VENA CAVA: Normal flow. AORTA: No aneurysm. RIGHT KIDNEY: Echogenic, difficult to visualize PERITONEAL AND RIGHT PLEURAL SPACE: No ascites or effusions. OTHER: No other significant findings. IMPRESSION: No gallstones, gallbladder wall thickening or pericholecystic fluid Antegrade portal venous flow. Grossly normal liver echotexture Right lower quadrant transplant kidney normal blood flow. No hydronephrosis. TECHNICAL DOCUMENTATION: JOB ID: [id number] 2010 [employer]- All Rights Reserved Reading location - IP/workstation name: [email or web address]
[2019-10-12 13:17] LABS: FLUID COLOR AMBER; FLUID SOURCE LUNG; FLUID TYPE PLEURAL
[2019-10-12 13:18] LABS: FLUID APPEARANCE HAZY; FLUID VISCOSITY LIQUID
[2019-10-12] MEDS: HEPARIN SOD (PORCINE) 5,000 UNIT/ML 1 ML VIAL SUBCUT SCH ×2 (13:21→21:35)
--- NOTE | 2019-10-12 13:31 | RADIOLOGY REPORT (SQ) ---
EXAM DESCRIPTION: U/S THORACENTESIS WITH IMAGING IMAGES COMPLETED DATE/TIME: 10/12/2019 12:25 pm REASON FOR STUDY: recurrent pleural effusion COMPARISON: CHEST X-RAY DATED 10/11/2019. LIMITATIONS: None. PROCEDURE: Procedure, risks, benefit, and alternative explained to patient who then gave written con sent. The posterior right chest wall was marked using ultrasound guidance. A time-out was called fo r correct marking verification. Chest prepped and draped using sterile technique. Local anesthesia a chieved using 7 ml of 1% lidocaine injection. A 6fr Safe-T- Centesis set was introduced into the rig ht pleural space. Fluid was aspirated. The catheter was removed and the entry site was covered with sterile bandage. No immediate complications noted. Multiple septations on ultrasound. This limited the amount of fluid collected. 260 mL of jose fluid was collected and sent to lab Images acquired during the procedure were stored on PACS. FINDINGS: ENTRY SITE: posterior right chest. FLUID VOLUME: 260 ML FLUID ANALYSIS: JOSE OTHER: Fluid sent to the lab for testing. IMPRESSION: SUCCESSFUL THORACENTESIS USING ULTRASOUND GUIDANCE. COMMENT: Patient medication list reviewed: Yes- Quality ID# [id number]:Eligible professional attests to doc umenting in the medical record they obtained, updated, or reviewed the patient's current medications. TECHNICAL DOCUMENTATION: JOB ID: [id number] 2010 [employer]- All Rights Reserved Reading location - IP/workstation name: [email or web address]
[2019-10-12 13:50] LABS: ANION GAP 6 (5-19); BLOOD UREA NITROGEN 31 mg/dL (7-20); CALCIUM 10.2 mg/dL (8.4-10.2); CARBON DIOXIDE 16 mmol/L (22-30); CHLORIDE 110 mmol/L (98-107); GLUCOSE 133 mg/dL (75-110)
[2019-10-12 13:51] LABS: POTASSIUM 4.9 mmol/L (3.6-5.0)
--- NOTE | 2019-10-12 14:29 | RADIOLOGY REPORT (SQ) ---
EXAM DESCRIPTION: CHEST SINGLE VIEW IMAGES COMPLETED DATE/TIME: 10/12/2019 2:20 pm REASON FOR STUDY: POST THORA COMPARISON: 10/12/2019 EXAM PARAMETERS: NUMBER OF VIEWS: One view. TECHNIQUE: Single frontal radiographic view of the chest acquired. RADIATION DOSE: NA LIMITATIONS: None. FINDINGS: LUNGS AND PLEURA: No pneumothorax. No change from the prior study. Residual pleural effu asif with likely atelectasis in the right lower lobe. MEDIASTINUM AND HILAR STRUCTURES: No masses. Contour normal. HEART AND VASCULAR STRUCTURES: Heart normal in size. Normal vasculature. BONES: No acute findings. HARDWARE: None in the chest. OTHER: No other significant finding. IMPRESSION: No pneumothorax. No significant change. TECHNICAL DOCUMENTATION: JOB ID: [id number] 2010 [employer]- All Rights Reserved Reading location - IP/workstation name: [email or web address]
[2019-10-12] MEDS: MYCOPHENOLATE MOFETIL 250 MG CAPSULE PO SCH (17:24)
[2019-10-12 17:43] LABS: VENOUS BLOOD BASE EXCESS -7.5 mmol/L; VENOUS BLOOD PCO2 32.3 mmHg (35-63); VENOUS BLOOD PH 7.34 (7.30-7.42)
[2019-10-12 19:05] LABS: APPEARANCE,URINE CLEAR; BILIRUBIN,URINE NEGATIVE (NEGATIVE); COLOR,URINE YELLOW; GLUCOSE, URINE NEGATIVE (NEGATIVE); KETONES,URINE NEGATIVE (NEGATIVE); LEUKOCYTE ESTERASE,URINE NEGATIVE (NEGATIVE); NITRITE,URINE NEGATIVE (NEGATIVE); PROTEIN,URINE 30 mg/dL (NEGATIVE); URINE SPECIFIC GRAVITY 1.012; UROBILINOGEN,URINE NEGATIVE mg/dL (<2.0)
--- NOTE | 2019-10-12 22:07 | EKG REPORT ---
SEVERITY:- NORMAL ECG - SINUS RHYTHM : Confirmed by: Tianna Santana MD 12-Oct-2019 22:06:31
[2019-10-13] MEDS: HEPARIN SOD (PORCINE) 5,000 UNIT/ML 1 ML VIAL SUBCUT SCH ×3 (05:27→21:17)
[2019-10-13 06:19] LABS: HEMATOCRIT 38.6 % (37.9-51.0); MEAN CORPUSCULAR HEMOGLOBIN 30.6 pg (27.0-33.4); MEAN CORPUSCULAR HGB CONC 34.7 g/dL (32.0-36.0); MEAN CORPUSCULAR VOLUME 88 fl (80-97); PLATELET COUNT 253 10^3/uL (150-450); RED BLOOD COUNT 4.37 10^6/uL (4.35-5.55); RED CELL DISTRIBUTION WIDTH 12.8 % (11.5-14.0); WHITE BLOOD COUNT 11.6 10^3/uL (4.0-10.5)
[2019-10-13 06:52] LABS: ABSOLUTE LYMPHOCYTES# (MANUAL) 0.5 10^3/uL (0.5-4.7); ABSOLUTE MONOCYTES # (MANUAL) 0.9 10^3/uL (0.1-1.4); BASOPHILS % (MANUAL) 0 % (0-2); EOSINOPHILS % (MANUAL) 1 % (0-6); LYMPHOCYTES % (MANUAL) 4 % (13-45); MONOCYTES % (MANUAL) 8 % (3-13); PLATELET COMMENT ADEQUATE; RBC MORPHOLOGY COMMENT NORMO-CYTIC/CHROMIC; SEGMENTED NEUTROPHILS % (MAN) 87 % (42-78); TOTAL CELLS COUNTED 100
[2019-10-13 06:55] LABS: HEMOGLOBIN 13.4 g/dL (13.5-17.0)
[2019-10-13 06:57] LABS: ALBUMIN 2.1 g/dL (3.5-5.0); ALKALINE PHOSPHATASE 166 U/L (38-126); ANION GAP 5 (5-19); ASPARTATE AMINO TRANSFERASE 61 U/L (17-59); BILIRUBIN,DIRECT 0.2 mg/dL (0.0-0.4); BILIRUBIN,TOTAL 0.6 mg/dL (0.2-1.3); BLOOD UREA NITROGEN 32 mg/dL (7-20); CALCIUM 9.4 mg/dL (8.4-10.2); CARBON DIOXIDE 17 mmol/L (22-30); CHLORIDE 108 mmol/L (98-107); GLUCOSE 93 mg/dL (75-110); PHOSPHORUS 3.5 mg/dL (2.5-4.5); POTASSIUM 4.7 mmol/L (3.6-5.0); TOTAL PROTEIN 4.5 g/dL (6.3-8.2)
--- NOTE | 2019-10-13 08:03 | RADIOLOGY REPORT (SQ) ---
EXAM DESCRIPTION: CHEST 2 VIEWS IMAGES COMPLETED DATE/TIME: 10/13/2019 7:42 am REASON FOR STUDY: atelectasis and pleural fluid reassessment COMPARISON: CT chest 10/01/2019 Chest films 10/01/2019 10/29/2019, 10/12/2019 EXAM PARAMETERS: NUMBER OF VIEWS: two views TECHNIQUE: Digital Frontal and Lateral radiographic views of the chest acquired. RADIATION DOSE: NA LIMITATIONS: none FINDINGS: LUNGS AND PLEURA: Opacification of the right lower hemithorax from moderate size pleural e ffusion, right middle and lower lobe collapse and consolidation unchanged from 10/01/2019. Left lung well inflated. No focal infiltrates. No left-sided pleural effusion No right or left pneumothorax MEDIASTINUM AND HILAR STRUCTURES: No masses or contour abnormalities. HEART AND VASCULAR STRUCTURES: Heart normal size. No evidence for failure. BONES: No acute findings. HARDWARE: None in the chest. OTHER: No other significant finding. IMPRESSION: Opacification right lower hemithorax from moderate-sized pleural effusion, right middle and lower lobe collapse and consolidation. This is unchanged from 10/01/2019 TECHNICAL DOCUMENTATION: JOB ID: [id number] 2010 [employer]- All Rights Reserved Reading location - IP/workstation name: [email or web address]
[2019-10-13] MEDS: IPRATROPIUM/ALBUTEROL 0.5-2.5 MG/3 ML AMPUL NEB SCH ×3 (08:06→19:40)
[2019-10-13] MEDS: FAMOTIDINE 20 MG TABLET PO SCH ×2 (09:15→21:16)
[2019-10-13] MEDS: AMLODIPINE BESYLATE 5 MG TABLET PO SCH (09:15)
[2019-10-13] MEDS: LEVETIRACETAM 500 MG TABLET PO SCH ×2 (09:15→21:16)
[2019-10-13] MEDS: LISINOPRIL 5 MG TABLET PO SCH (09:15)
[2019-10-13] MEDS: LINEZOLID 600 MG/300 ML RTUPB IV SCH ×2 (09:16→21:18)
[2019-10-13] MEDS: CEFEPIME 1 GM/D5W RTU 1 GM/50 ML RTUPB IV SCH ×2 (09:16→21:18)
[2019-10-13] MEDS: PREDNISONE 10 MG TABLET PO SCH (09:16)
[2019-10-13] MEDS: TACROLIMUS ANHYDROUS 1 MG CAPSULE PO SCH ×2 (09:16→21:16)
[2019-10-13] MEDS: MYCOPHENOLATE MOFETIL 250 MG CAPSULE PO SCH ×2 (09:16→17:13)
[2019-10-13] MEDS: CARVEDILOL 6.25 MG TABLET PO SCH ×2 (09:16→21:17)
[2019-10-13] MEDS: OXYCODONE-ACETAMINOPHEN 5-325 MG TABLET PO PRN ×2 (09:26→21:15)
--- NOTE | 2019-10-13 16:49 | PDOC PROGRESS REPORT ---
Subjective Progress Note for:: 10/13/19 Subjective:: Patient still asked. Some pain in his right side of his chest. Denies any profuse worsening of shortness of breath Reason For Visit: PLEURAL EFFUSION, CHEST PAIN Physical Exam Vital Signs: Temp Pulse Resp BP Pulse Ox 97.8 F 72 18 136/83 H 97 10/13/19 15:44 10/13/19 15:44 10/13/19 15:44 10/13/19 15:44 10/13/19 15:44 Intake & Output 10/12/19 10/13/19 10/14/19 06:59 06:59 06:59 Intake Total 1350 2516 1600 Output Total 098 772 7172 Balance 750 1966 600 Weight 78.4 kg 80.1 kg General appearance: PRESENT: no acute distress, cooperative Neck exam: ABSENT: JVD Respiratory exam: PRESENT: chest wall tenderness, clear to auscultation margaret, decreased breath sounds - Right lower lung, unlabored. ABSENT: tachypnea, wheezes Cardiovascular exam: PRESENT: RRR, +S1, +S2. ABSENT: bradycardia, tachycardia GI/Abdominal exam: PRESENT: soft. ABSENT: rebound, rigid, tenderness Neurological exam: PRESENT: alert, awake, oriented to person, oriented to place, oriented to time Psychiatric exam: ABSENT: agitated, anxious Focused psych exam: ABSENT: pressured speech Skin exam: ABSENT: jaundice Results Laboratory Results: 10/13/19 05:42 10/13/19 05:42 10/12/19 10/12/19 10/13/19 17:36 18:30 05:42 WBC 11.6 H RBC 4.37 Hgb 13.4 L D Hct 38.6 MCV 88 MCH 30.6 MCHC 34.7 RDW 12.8 Plt Count 253 Seg Neutrophils % Not Reportable VBG pH 7.34 VBG pCO2 32.3 L VBG HCO3 17.0 L VBG Base Excess -7.5 Sodium Potassium Chloride Carbon Dioxide Anion Gap BUN Creatinine Est GFR ( Amer) Glucose Calcium Phosphorus Magnesium Total Bilirubin AST Alkaline Phosphatase Total Protein Albumin Urine Color YELLOW Urine Appearance CLEAR Urine pH 6.0 Ur Specific [place] 1.012 Urine Protein 30 H Urine Glucose (UA) NEGATIVE Urine Ketones NEGATIVE Urine Blood SMALL H Urine Nitrite NEGATIVE Ur Leukocyte Esterase NEGATIVE Urine WBC (Auto) 1 Urine RBC (Auto) 2 10/13/19 05:42 WBC RBC Hgb Hct MCV MCH MCHC RDW Plt Count Seg Neutrophils % VBG pH VBG pCO2 VBG HCO3 VBG Base Excess Sodium 130.0 L Potassium 4.7 Chloride 108 H Carbon Dioxide 17 L Anion Gap 5 BUN 32 H Creatinine 1.14 Est GFR ( Amer) > 60 Glucose 93 Calcium 9.4 Phosphorus 3.5 Magnesium 1.7 Total Bilirubin 0.6 AST 61 H Alkaline Phosphatase 166 H Total Protein 4.5 L Albumin 2.1 L Urine Color Urine Appearance Urine pH Ur Specific [place] Urine Protein Urine Glucose (UA) Urine Ketones Urine Blood Urine Nitrite Ur Leukocyte Esterase Urine WBC (Auto) Urine RBC (Auto) Impressions: Abdomen Ultrasound 10/12/19 00:00 IMPRESSION: No gallstones, gallbladder wall thickening or pericholecystic fluid Antegrade portal venous flow. Grossly normal liver echotexture Right lower quadrant transplant kidney normal blood flow. No hydronephrosis. Thoracentesis Ultrasound 10/12/19 01:06 IMPRESSION: SUCCESSFUL THORACENTESIS USING ULTRASOUND GUIDANCE. Chest X-Ray 10/13/19 07:00 IMPRESSION: Opacification right lower hemithorax from moderate-sized pleural effusion, right middle and lower lobe collapse and consolidation. This is unchanged from 10/01/2019 Assessment and Plan - Diagnosis (1) Recurrent pleural effusion on right Is this a current diagnosis for this admission?: Yes Plan: Likely infectious process given exudative pleural effusion based on fluid analysis from previous admission. Awaiting fluid analysis and cytology. Thoracentesis done on 10/12/2019 which yielded only 260 cc. However repeat chest x-ray following thoracentesis still shows moderate amount of right pleural effusion (2) Pneumonia Qualifiers: Pneumonia type: due to unspecified organism Laterality: right Lung location: lower lobe of lung Qualified Code(s): J18.9 - Pneumonia, unspecified organism Is this a current diagnosis for this admission?: Yes Plan: Likely healthcare associated pneumonia or unresolved pneumonia from previous hospitalization. Pleural fluid culture and blood culture currently negative Empiric broad-spectrum IV antibiotics with linezolid and cefepime. Leukocytosis seems to be improving. (3) Metabolic acidosis, normal anion gap (NAG) Is this a current diagnosis for this admission?: Yes Plan: Noted on renal blood gas. Bicarb is 17 today. Patient has hyperchloremic normal anion gap metabolic acidosis. Denies diarrhea. Wondering if Renal Tubular acidosis could be playing a role here. Has been noted to come in hyperkalemic the past 2 times. Urine sodium and urine potassium obtained. Urine chloride pending. Would like to check urine anion gap. (4) Hyperkalemia Is this a current diagnosis for this admission?: Yes Plan: No acute EKG changes. Received Kayexalate yesterday. Currently resolved. We will continue to monitor BMP. (5) Renal transplant recipient Is this a current diagnosis for this admission?: Yes Plan: History of left lower renal transplant x4 years. On steroids, mycophenolate mofetil and tacrolimus. Resume home meds. Patient PCP follow-up. (6) Chest pain, pleuritic Is this a current diagnosis for this admission?: Yes Plan: Pleuritic-type chest pain. Unlikely cardiac in origin. Likely due to right- sided pleural effusion/pneumonia. Pain control as needed. (7) EMA (acute kidney injury) Is this a current diagnosis for this admission?: Yes Plan: Resolved at this time. - Time Time Spent with patient: Less than 15 minutes
[2019-10-14] MEDS: HEPARIN SOD (PORCINE) 5,000 UNIT/ML 1 ML VIAL SUBCUT SCH ×3 (05:38→22:26)
[2019-10-14 05:48] LABS: ABSOLUTE LYMPHOCYTES (AUTO) 0.7 10^3/uL (0.5-4.7); ABSOLUTE MONOCYTES (AUTO) 1.1 10^3/uL (0.1-1.4); ABSOLUTE NEUT (AUTO) 9.7 10^3/uL (1.7-8.2); BASOPHILS % (AUTO) 0.2 % (0-2); EOSINOPHILS % (AUTO) 0.4 % (0-6); HEMATOCRIT 38.4 % (37.9-51.0); HEMOGLOBIN 13.2 g/dL (13.5-17.0); LYMPHOCYTES % (AUTO) 5.7 % (13-45); MEAN CORPUSCULAR HEMOGLOBIN 30.3 pg (27.0-33.4); MEAN CORPUSCULAR HGB CONC 34.5 g/dL (32.0-36.0); MEAN CORPUSCULAR VOLUME 88 fl (80-97); MONOCYTES % (AUTO) 9.4 % (3-13); PLATELET COUNT 270 10^3/uL (150-450); RED BLOOD COUNT 4.37 10^6/uL (4.35-5.55); SEGMENTED NEUTROPHILS % (AUTO) 84.3 % (42-78); TOTAL CELLS COUNTED % (AUTO) 100 %; WHITE BLOOD COUNT 11.5 10^3/uL (4.0-10.5)
[2019-10-14 06:09] LABS: BLOOD UREA NITROGEN 28 mg/dL (7-20); CALCIUM 9.5 mg/dL (8.4-10.2); GLUCOSE 89 mg/dL (75-110); PHOSPHORUS 3.3 mg/dL (2.5-4.5)
[2019-10-14 06:14] LABS: ANION GAP 5 (5-19); CARBON DIOXIDE 17 mmol/L (22-30); CHLORIDE 105 mmol/L (98-107)
[2019-10-14] MEDS: IPRATROPIUM/ALBUTEROL 0.5-2.5 MG/3 ML AMPUL NEB SCH ×3 (08:36→20:56)
[2019-10-14] MEDS ORDERED: COSYNTROPIN INJ 0.25 MG VIAL IV ONE (09:00)
[2019-10-14] MEDS: TACROLIMUS ANHYDROUS 1 MG CAPSULE PO SCH ×2 (09:21→22:27)
[2019-10-14] MEDS: AMLODIPINE BESYLATE 5 MG TABLET PO SCH (09:22)
[2019-10-14] MEDS: CARVEDILOL 6.25 MG TABLET PO SCH ×2 (09:22→22:26)
[2019-10-14] MEDS: LEVETIRACETAM 500 MG TABLET PO SCH ×2 (09:22→22:25)
[2019-10-14] MEDS: LISINOPRIL 5 MG TABLET PO SCH (09:22)
[2019-10-14] MEDS: MYCOPHENOLATE MOFETIL 250 MG CAPSULE PO SCH ×2 (09:23→17:10)
[2019-10-14] MEDS: FAMOTIDINE 20 MG TABLET PO SCH ×2 (09:23→22:25)
[2019-10-14] MEDS: CEFEPIME 1 GM/D5W RTU 1 GM/50 ML RTUPB IV SCH ×2 (09:24→22:25)
[2019-10-14] MEDS: OXYCODONE-ACETAMINOPHEN 5-325 MG TABLET PO PRN ×2 (11:17→22:25)
[2019-10-14] MEDS: LINEZOLID 600 MG/300 ML RTUPB IV SCH ×2 (11:18→22:28)
--- NOTE | 2019-10-14 14:16 | PDOC PROGRESS REPORT ---
Subjective Progress Note for:: 10/14/19 Subjective:: Patient still complaining of right pleuritic pain. Denies fever or chills. Would like to get up or walk around today. Reason For Visit: PLEURAL EFFUSION, CHEST PAIN Physical Exam Vital Signs: Temp Pulse Resp BP Pulse Ox 98.4 F 70 18 142/88 H 98 10/14/19 11:51 10/14/19 11:51 10/14/19 11:51 10/14/19 11:51 10/14/19 11:51 Intake & Output 10/13/19 10/14/19 10/15/19 06:59 06:59 06:59 Intake Total 2516 3290 50 Output Total 550 1300 Balance 1966 1989 50 Weight 80.1 kg 80.6 kg General appearance: PRESENT: no acute distress, cooperative Neck exam: ABSENT: JVD Respiratory exam: PRESENT: chest wall tenderness, clear to auscultation margaret, decreased breath sounds, unlabored. ABSENT: tachypnea, wheezes Cardiovascular exam: PRESENT: RRR, +S1, +S2. ABSENT: tachycardia GI/Abdominal exam: PRESENT: soft. ABSENT: rebound, rigid, tenderness Neurological exam: PRESENT: alert, awake, oriented to person, oriented to place, oriented to time Results Laboratory Results: 10/14/19 05:09 10/14/19 05:09 10/14/19 10/14/19 05:09 05:09 WBC 11.5 H RBC 4.37 Hgb 13.2 L Hct 38.4 MCV 88 MCH 30.3 MCHC 34.5 RDW 12.0 Plt Count 270 Seg Neutrophils % 84.3 H Sodium 127.0 L Potassium 5.0 Chloride 105 Carbon Dioxide 17 L Anion Gap 5 BUN 28 H Creatinine 1.13 Est GFR ( Amer) > 60 Glucose 89 Calcium 9.5 Phosphorus 3.3 Magnesium 1.7 Impressions: Abdomen Ultrasound 10/12/19 00:00 IMPRESSION: No gallstones, gallbladder wall thickening or pericholecystic fluid Antegrade portal venous flow. Grossly normal liver echotexture Right lower quadrant transplant kidney normal blood flow. No hydronephrosis. Thoracentesis Ultrasound 10/12/19 01:06 IMPRESSION: SUCCESSFUL THORACENTESIS USING ULTRASOUND GUIDANCE. Chest X-Ray 10/13/19 07:00 IMPRESSION: Opacification right lower hemithorax from moderate-sized pleural effusion, right middle and lower lobe collapse and consolidation. This is unchanged from 10/01/2019 Assessment and Plan - Diagnosis (1) Recurrent pleural effusion on right Is this a current diagnosis for this admission?: Yes Plan: Likely infectious process given exudative pleural effusion based on fluid analysis from previous admission. Awaiting fluid analysis and cytology. Gram stain and culture negative Thoracentesis done on 10/12/2019 which yielded only 260 cc. However repeat chest x-ray following thoracentesis still shows moderate amount of right pleural effusion (2) Pneumonia Qualifiers: Pneumonia type: due to unspecified organism Laterality: right Lung location: lower lobe of lung Qualified Code(s): J18.9 - Pneumonia, unspecified organism Is this a current diagnosis for this admission?: Yes Plan: Likely healthcare associated pneumonia or unresolved pneumonia from previous hospitalization. Pleural fluid culture and blood culture currently negative Empiric broad-spectrum IV antibiotics with linezolid and cefepime. Leukocytosis seems to be improving. (3) Hyponatremia Is this a current diagnosis for this admission?: Yes Plan: Sodium is down to 127 today. Continue to monitor BMP. Possible etiologies of patient's hyponatremia include hypoadrenalism/adrenal insufficiency from chronic steroid use or SIADH from chest pain and lung pathology. His a.m. cortisol was low at 4.6 at 5 AM per latest symptoms of come up to 12 and 9 AM. This is still quite low for somebody who is currently sick. Cosyntropin test was surprisingly normal. However hyperkalemia and hyperchloremic acidosis are somewhat consistent with hypoadrenalism. Will check urine and serum osmolarity. (4) Metabolic acidosis, normal anion gap (NAG) Is this a current diagnosis for this admission?: Yes Plan: Noted on renal blood gas. Bicarb is 17 today. Patient has hyperchloremic normal anion gap metabolic acidosis. Denies diarrhea. Wondering if Renal Tubular acidosis or adrenal insufficiency could be playing a role here. Has been noted to come in hyperkalemic the past 2 times. Urine sodium and urine potassium obtained. Urine chloride pending. Would like to check urine anion gap. (5) Hyperkalemia Is this a current diagnosis for this admission?: Yes Plan: Received Kayexalate on 10/12/2019. Currently resolved but seems to be trending back up. We will continue to monitor BMP. (6) Renal transplant recipient Is this a current diagnosis for this admission?: Yes Plan: History of left lower renal transplant x4 years. On steroids, mycophenolate mofetil and tacrolimus. (7) Chest pain, pleuritic Is this a current diagnosis for this admission?: Yes Plan: Pleuritic-type chest pain. Unlikely cardiac in origin. Likely due to right- sided pleural effusion/pneumonia. Pain control as needed. (8) EMA (acute kidney injury) Is this a current diagnosis for this admission?: Yes Plan: Resolved at this time. (9) intermediate systemic steroid user Is this a current diagnosis for this admission?: Yes Plan: On prednisone 10 mg daily for immunosuppression for renal transplant. Likely has some sort of adrenal suppression from his chronic steroid use. - Time Time Spent with patient: Less than 15 minutes
[2019-10-14 16:35] LABS: OSMOLALITY,URINE 198 mOsm/kg (300-900)
[2019-10-14 16:40] LABS: URINE SODIUM 14 mmol/L (30-90)
[2019-10-14] MEDS: TEMAZEPAM 15 MG CAPSULE PO PRN (22:25)
[2019-10-15] MEDS: HEPARIN SOD (PORCINE) 5,000 UNIT/ML 1 ML VIAL SUBCUT SCH (05:34)
[2019-10-15 07:57] LABS: ABSOLUTE EOSINOPHILS # (AUTO) 0.1 10^3/uL (0.0-0.6); ABSOLUTE LYMPHOCYTES (AUTO) 0.5 10^3/uL (0.5-4.7); ABSOLUTE MONOCYTES (AUTO) 0.9 10^3/uL (0.1-1.4); ABSOLUTE NEUT (AUTO) 5.9 10^3/uL (1.7-8.2); BASOPHILS % (AUTO) 0.5 % (0-2); EOSINOPHILS % (AUTO) 1.9 % (0-6); HEMATOCRIT 39.2 % (37.9-51.0); HEMOGLOBIN 13.4 g/dL (13.5-17.0); LYMPHOCYTES % (AUTO) 7.3 % (13-45); MEAN CORPUSCULAR HEMOGLOBIN 30.3 pg (27.0-33.4); MEAN CORPUSCULAR HGB CONC 34.2 g/dL (32.0-36.0); MEAN CORPUSCULAR VOLUME 88 fl (80-97); MONOCYTES % (AUTO) 12.5 % (3-13); PLATELET COUNT 269 10^3/uL (150-450); RED BLOOD COUNT 4.43 10^6/uL (4.35-5.55); RED CELL DISTRIBUTION WIDTH 12.2 % (11.5-14.0); SEGMENTED NEUTROPHILS % (AUTO) 77.8 % (42-78); TOTAL CELLS COUNTED % (AUTO) 100 %; WHITE BLOOD COUNT 7.5 10^3/uL (4.0-10.5)
[2019-10-15 08:17] LABS: BLOOD UREA NITROGEN 23 mg/dL (7-20); CALCIUM 9.6 mg/dL (8.4-10.2); GLUCOSE 84 mg/dL (75-110)
[2019-10-15 08:22] LABS: CARBON DIOXIDE 19 mmol/L (22-30); CHLORIDE 108 mmol/L (98-107)
[2019-10-15] MEDS: IPRATROPIUM/ALBUTEROL 0.5-2.5 MG/3 ML AMPUL NEB SCH ×3 (08:27→20:00)
[2019-10-15] MEDS: CEFEPIME 1 GM/D5W RTU 1 GM/50 ML RTUPB IV SCH ×2 (09:24→22:35)
[2019-10-15] MEDS: MYCOPHENOLATE MOFETIL 250 MG CAPSULE PO SCH ×2 (09:25→17:27)
[2019-10-15] MEDS: LISINOPRIL 5 MG TABLET PO SCH (09:25)
[2019-10-15] MEDS: AMLODIPINE BESYLATE 5 MG TABLET PO SCH (09:26)
[2019-10-15] MEDS: LEVETIRACETAM 500 MG TABLET PO SCH ×2 (09:26→22:34)
[2019-10-15] MEDS: PREDNISONE 10 MG TABLET PO SCH (09:26)
[2019-10-15] MEDS: CARVEDILOL 6.25 MG TABLET PO SCH ×2 (09:26→22:33)
[2019-10-15] MEDS: TACROLIMUS ANHYDROUS 1 MG CAPSULE PO SCH ×2 (09:26→22:34)
[2019-10-15] MEDS: FAMOTIDINE 20 MG TABLET PO SCH ×2 (09:26→22:34)
[2019-10-15] MEDS: OXYCODONE-ACETAMINOPHEN 5-325 MG TABLET PO PRN ×2 (09:30→17:31)
[2019-10-15 09:47] LABS: ANION GAP 2 (5-19)
[2019-10-15] MEDS: LINEZOLID 600 MG/300 ML RTUPB IV SCH ×2 (10:30→23:49)
--- NOTE | 2019-10-15 10:41 | PDOC PROGRESS REPORT ---
Subjective Progress Note for:: 10/15/19 Subjective:: Patient still complaining of right pleuritic pain. Denies fever or chills. He is okay with having a chest tube placed if needed. Reason For Visit: PLEURAL EFFUSION, CHEST PAIN Physical Exam Vital Signs: Temp Pulse Resp BP Pulse Ox 97.9 F 65 16 151/85 H 98 10/15/19 07:53 10/15/19 08:00 10/15/19 08:00 10/15/19 07:53 10/15/19 08:00 Intake & Output 10/14/19 10/15/19 10/16/19 06:59 06:59 06:59 Intake Total 3290 2420 Output Total 1300 300 Balance 1989 2119 Weight 80.6 kg 80 kg General appearance: PRESENT: no acute distress, cooperative Neck exam: ABSENT: JVD Respiratory exam: PRESENT: clear to auscultation margaret, decreased breath sounds - Decreased in right lower lung hughes, symmetrical, unlabored. ABSENT: tachypnea, wheezes Cardiovascular exam: PRESENT: RRR, +S1, +S2. ABSENT: tachycardia GI/Abdominal exam: PRESENT: soft. ABSENT: rebound, rigid, tenderness Neurological exam: PRESENT: alert, awake, oriented to person, oriented to place, oriented to time Results Laboratory Results: 10/15/19 07:31 10/15/19 07:31 10/12/19 10/12/19 10/12/19 11:45 11:45 11:45 WBC RBC Hgb Hct MCV MCH MCHC RDW Plt Count Seg Neutrophils % Sodium Potassium Chloride Carbon Dioxide Anion Gap BUN Creatinine Est GFR ( Amer) Glucose Serum Osmolality Calcium Magnesium Urine Osmolality Fluid Glucose Fluid Total Protein 3.1 Fluid Albumin 1.8 Fluid LDH 205 Fluid Amylase 10/12/19 10/12/19 10/14/19 11:45 11:45 05:09 WBC RBC Hgb Hct MCV MCH MCHC RDW Plt Count Seg Neutrophils % Sodium Potassium Chloride Carbon Dioxide Anion Gap BUN Creatinine Est GFR ( Amer) Glucose Serum Osmolality 271 L Calcium Magnesium Urine Osmolality Fluid Glucose 72 Fluid Total Protein Fluid Albumin Fluid LDH Fluid Amylase 40 10/14/19 10/15/19 10/15/19 15:43 07:31 07:31 WBC 7.5 RBC 4.43 Hgb 13.4 L Hct 39.2 MCV 88 MCH 30.3 MCHC 34.2 RDW 12.2 Plt Count 269 Seg Neutrophils % 77.8 Sodium 129.4 L Potassium 5.0 Chloride 108 H Carbon Dioxide 19 L Anion Gap 2 L BUN 23 H Creatinine 1.04 Est GFR ( Amer) > 60 Glucose 84 Serum Osmolality Calcium 9.6 Magnesium 1.7 Urine Osmolality 198 L Fluid Glucose Fluid Total Protein Fluid Albumin Fluid LDH Fluid Amylase Impressions: Abdomen Ultrasound 10/12/19 00:00 IMPRESSION: No gallstones, gallbladder wall thickening or pericholecystic fluid Antegrade portal venous flow. Grossly normal liver echotexture Right lower quadrant transplant kidney normal blood flow. No hydronephrosis. Thoracentesis Ultrasound 10/12/19 01:06 IMPRESSION: SUCCESSFUL THORACENTESIS USING ULTRASOUND GUIDANCE. Chest X-Ray 10/13/19 07:00 IMPRESSION: Opacification right lower hemithorax from moderate-sized pleural effusion, right middle and lower lobe collapse and consolidation. This is unchanged from 10/01/2019 Assessment and Plan - Diagnosis (1) Recurrent pleural effusion on right Is this a current diagnosis for this admission?: Yes Plan: Likely infectious process secondary to pneumonia. Had thoracentesis which removed 900cc on October 01 during prior admission. Thoracentesis on 10/12/2019 only yielded about 260 cc. Discussed with radiologist who states that they were only able to get that small amount because of septations noted on ultrasound. Fluid analysis is consistent with uncomplicated parapneumonic effusion. Unfortunately, it seems that though cytology was ordered, no cytology was sent and order was somehow discontinued. We will try to find out from the lab if they have any leftover specimen to run a cytology. Gram stain and culture negati ve. Given the patient still has a moderate amount of right pleural effusion causing right middle and lower lobe collapse on repeat chest imaging, I have consulted surgery for placement of a chest tube to drain the effusion. (2) Pneumonia Qualifiers: Pneumonia type: due to unspecified organism Laterality: right Lung location: lower lobe of lung Qualified Code(s): J18.9 - Pneumonia, unspecified organism Is this a current diagnosis for this admission?: Yes Plan: Likely unresolved pneumonia from previous hospitalization complicated by parapneumonic effusion. Blood cultures currently negative Empiric broad-spectrum IV antibiotics with linezolid and cefepime. Leukocytosis seems to have resolved now. (3) Hyponatremia Is this a current diagnosis for this admission?: Yes Plan: Euvolemic hypoosmolar hyponatremia. Urine sodium is quite low making SIADH very unlikely. A.m. cortisol yesterday was borderline low but patient had very normal response to cosyntropin test making primary adrenal insufficiency very unlikely. Possibly it is secondary to hypoaldosteronism. Sodium seems to be stable around 128-131 during this admission and prior hospitalization. Will monitor. (4) Metabolic acidosis, normal anion gap (NAG) Is this a current diagnosis for this admission?: Yes Plan: Noted on vbg. Bicarb is 19 today. Patient has hyperchloremic normal anion gap metabolic acidosis. Also noted to always present with hyperkalemia. Denies any diarrhea. 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 I have consulted nephrology for input to see if anything needs to be done. (5) Hyperkalemia Is this a current diagnosis for this admission?: Yes Plan: Received Kayexalate on 10/12/2019. Currently resolved but seems to be trending back up. We will continue to monitor BMP. (6) Renal transplant recipient Is this a current diagnosis for this admission?: Yes Plan: History of left lower renal transplant x4 years. On steroids, mycophenolate mofetil and tacrolimus. (7) Chest pain, pleuritic Is this a current diagnosis for this admission?: Yes Plan: Pleuritic-type chest pain. Unlikely cardiac in origin. Likely due to right- sided pleural effusion/pneumonia. Pain control as needed. (8) EMA (acute kidney injury) Is this a current diagnosis for this admission?: Yes Plan: Resolved at this time. 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 - Time Time Spent with patient: Less than 15 minutes
--- NOTE | 2019-10-15 12:23 | PDOC CONSULTATION ---
Consultation Consult Date: 10/15/19 Attending physician:: VERONICA CHANDRA Provider Consulted: MARISOL ADAM Consult reason:: Right chest tube History of Present Illness Admission Date/PCP: 10/12/19 00:36 History of Present Illness: HAYLEE MORELAND is a 29 year old male History of COPD, smoker, for years status post renal transplant, on immunosuppression, with history of right pneumonia, and parapneumonic effusion. Patient was in his usual state of good health when he presented to the emergency department on 10/01/2019 with a several day history of shortness of breath, low- grade fever. He was found to have right lower lobe pneumonia with pleural effusion. He underwent IR directed drainage of 900 cc of straw-colored fluid. Analysis was consistent with an exudative process; the patient grew no infecting organisms. Patient was treated with IV antibiotics for several days, then discharged home on 10/04/2019 on p.o. Levaquin. He followed up with a local power plant assistant Dr. Zeng, was found to have a persisting right pleural effusion and was sent back to the emergency department on where he was readmitted, and had a second IR drainage of 260 cc of fluid. Patient has had a leukocytosis in the past which is improved, as has his breathing, however he continues to have a trapped right lower lobe due to undrained fluid in his right chest. Surgery was consulted for assistance with management. Past Medical History Past Medical History: COPD, hypertension, history of seizure disorder, history of end-stage renal disease; acute kidney injury, recovered Cardiac Medical History: Reports: Hypertension Neurological Medical History: Reports: Seizures - last over 1 yr ago Renal/ Medical History: Reports: End Stage Renal Disease Psychiatric Medical History: Denies: Depression Past Surgical History Past Surgical History: Left arm AV fistula Renal transplant 4 years ago Social History Information Source: Patient Smoking Status: Current Every Day Smoker Electronic Cigarette use?: No Last Time Smoked: 20 Frequency of Alcohol Use: Social Hx Recreational Drug Use: No Drugs: None Hx Prescription Drug Abuse: No Family History Family History: None, Hypertension, Other - ESRD in several members of the [facility] Parental Family History Reviewed: No Children Family History Reviewed: No Sibling(s) Family History Reviewed.: No Medication/Allergy Home Medications: Mycophenolate Sodium [Sonafortic 180 mg Tablet.] 720 mg PO BID 08/09/17 Tacrolimus [Prograf] 2 mg PO Q12 08/09/17 Levetiracetam [Keppra 500 mg Tablet] 500 mg PO Q12 #30 tablet 08/10/17 Prednisone 10 mg PO DAILY 10/20/18 Amlodipine Besylate [Norvasc 5 mg Tablet] 5 mg PO DAILY 10/01/19 Carvedilol [Coreg 6.25 mg Tablet] 6.25 mg PO Q12 10/01/19 Lisinopril [Prinivil 5 mg Tablet] 5 mg PO DAILY 10/01/19 Levofloxacin [Levaquin 750 mg Tablet] 750 mg PO DAILY #7 tablet 10/04/19 Allergies/Adverse Reactions: No Known Allergies Allergy (Verified 10/11/19 17:35) Review of Systems Constitutional: PRESENT: as per HPI Eyes: ABSENT: visual disturbances Ears: ABSENT: hearing changes Cardiovascular: ABSENT: chest pain, dyspnea on exertion, edema, orthropnea, palpitations Respiratory: PRESENT: as per HPI Gastrointestinal: ABSENT: abdominal pain, constipation, diarrhea, hematemesis, hematochezia, nausea, vomiting Genitourinary: PRESENT: other - Patient makes very little urine. ABSENT: dysuria, hematuria Psychiatric: ABSENT: anxiety, depression, homidical ideation, suicidal ideation Endocrine: ABSENT: cold intolerance, heat intolerance, polydipsia, polyuria Physical Exam Vital Signs: Temp Pulse Resp BP Pulse Ox 97.9 F 65 16 151/85 H 98 10/15/19 07:53 10/15/19 08:00 10/15/19 08:00 10/15/19 07:53 10/15/19 08:00 Intake & Output 10/14/19 10/15/19 10/16/19 06:59 06:59 06:59 Intake Total 3290 2420 50 Output Total 1300 300 Balance 19890 50 Weight 80.6 kg 80 kg General appearance: PRESENT: no acute distress Head exam: PRESENT: normocephalic Eye exam: PRESENT: EOMI Mouth exam: PRESENT: dry mucosa Neck exam: PRESENT: full ROM Respiratory exam: PRESENT: other - Decreased breath sounds right base Cardiovascular exam: PRESENT: RRR Pulses: PRESENT: normal carotid pulses, normal radial pulses, normal femoral pulses GI/Abdominal exam: PRESENT: soft, other - Scar right flank consistent with previous surgery Rectal exam: PRESENT: deferred Extremities exam: PRESENT: full ROM Musculoskeletal exam: PRESENT: full ROM Neurological exam: PRESENT: oriented to person, oriented to place, oriented to time, oriented to situation Psychiatric exam: PRESENT: appropriate affect Skin exam: PRESENT: dry Results Laboratory Results: 10/15/19 07:31 10/15/19 07:31 10/12/19 10/12/19 10/12/19 11:45 11:45 11:45 WBC RBC Hgb Hct MCV MCH MCHC RDW Plt Count Seg Neutrophils % Sodium Potassium Chloride Carbon Dioxide Anion Gap BUN Creatinine Est GFR ( Amer) Glucose Serum Osmolality Calcium Magnesium Urine Osmolality Fluid Glucose Fluid Total Protein 3.1 Fluid Albumin 1.8 Fluid LDH 205 Fluid Amylase 10/12/19 10/12/19 10/14/19 11:45 11:45 05:09 WBC RBC Hgb Hct MCV MCH MCHC RDW Plt Count Seg Neutrophils % Sodium Potassium Chloride Carbon Dioxide Anion Gap BUN Creatinine Est GFR ( Amer) Glucose Serum Osmolality 271 L Calcium Magnesium Urine Osmolality Fluid Glucose 72 Fluid Total Protein Fluid Albumin Fluid LDH Fluid Amylase 40 10/14/19 10/15/19 10/15/19 15:43 07:31 07:31 WBC 7.5 RBC 4.43 Hgb 13.4 L Hct 39.2 MCV 88 MCH 30.3 MCHC 34.2 RDW 12.2 Plt Count 269 Seg Neutrophils % 77.8 Sodium 129.4 L Potassium 5.0 Chloride 108 H Carbon Dioxide 19 L Anion Gap 2 L BUN 23 H Creatinine 1.04 Est GFR ( Amer) > 60 Glucose 84 Serum Osmolality Calcium 9.6 Magnesium 1.7 Urine Osmolality 198 L Fluid Glucose Fluid Total Protein Fluid Albumin Fluid LDH Fluid Amylase Impressions: Abdomen Ultrasound 10/12/19 00:00 IMPRESSION: No gallstones, gallbladder wall thickening or pericholecystic fluid Antegrade portal venous flow. Grossly normal liver echotexture Right lower quadrant transplant kidney normal blood flow. No hydronephrosis. Thoracentesis Ultrasound 10/12/19 01:06 IMPRESSION: SUCCESSFUL THORACENTESIS USING ULTRASOUND GUIDANCE. Chest X-Ray 10/13/19 07:00 IMPRESSION: Opacification right lower hemithorax from moderate-sized pleural effusion, right middle and lower lobe collapse and consolidation. This is unchanged from 10/01/2019 Assessment & Plan - Diagnosis (1) Recurrent pleural effusion on right Is this a current diagnosis for this admission?: Yes Plan: Impression: Persisting right parapneumonic effusion likely exudative, refractory to pulmonary toilet, IV and oral antibiotics, and 2 thoracenteses in the last 2 weeks. Patient at risk for developing trapped lung Recommendations: 1. I reviewed patient's history, and imaging studies. I believe he has a pleural effusion that is amenable to drainage. I suggested a formal chest tube insertion, discussed this with primary care service, as well as the patient. We are all in agreement to proceed. I discussed the risk benefits and alternatives as well as the mechanics of the procedure. I believe patient understands and agrees to proceed. 2. I also explained that chest tube will be in for several days; if the drainage is unsatisfactory, due to loculations or other problem, or the right lower lobe does not reexpand properly, patient may require of VATS procedure. I mentioned this to the patient briefly. (2) Smoker Is this a current diagnosis for this admission?: Yes (3) Renal transplant recipient Is this a current diagnosis for this admission?: Yes (4) Hypertension Qualifiers: Hypertension type: essential hypertension Qualified Code(s): I10 - Essential (primary) hypertension Is this a current diagnosis for this admission?: Yes (5) Pneumonia Qualifiers: Pneumonia type: due to unspecified organism Laterality: right Lung location: lower lobe of lung Qualified Code(s): J18.9 - Pneumonia, unspecified organism Is this a current diagnosis for this admission?: Yes (7) COPD (chronic obstructive pulmonary disease) Is this a current diagnosis for this admission?: Yes - Time Time Spent: 50 to 70 Minutes Smoking Cessation Education: over 10 minutes Medications reviewed and adjusted accordingly: Yes Anticipated discharge: Home
[2019-10-15] MEDS ORDERED: FENTANYL CITRATE INJ/PF 100 MCG/2 ML AMPUL ONE (12:56)
[2019-10-15] MEDS ORDERED: LIDOCAINE 1% INJ-PF (10 MG/ML) 30 ML SDV ONE (13:16)
--- NOTE | 2019-10-15 14:07 | Operative Report ---
Operative Report DATE OF SURGERY: 10/15/19 PREOPERATIVE DIAGNOSIS: Right parapneumonic effusion. History of renal transpl antation POSTOPERATIVE DIAGNOSIS: Same OPERATION: 1. Insertion of right 30 [place] thoracostomy tube right pleural space. 2. Interpretation of intraoperative fluoroscopy SURGEON: MARISOL ADAM ANESTHESIA: Moderate Sedation TISSUE REMOVED OR ALTERED: Pleural fluid right chest COMPLICATIONS: None ESTIMATED BLOOD LOSS: Minimal INTRAOPERATIVE FINDINGS: See below PROCEDURE: Patient was on the floor to the cardiac Extrusion Bender was placed supine position, right arm abducted over his head, and the right lateral chest wall prepped and draped sterile fashion. We did have a bump under his right flank to assist with projection of the target surgeon site. Surgical plan and surgical timeout conducted. Patient was given approximately 75 mcg of fentanyl. A rapid fluoroscopic image demonstrated the right pleural effusion. I selected a site approximately intercostal space 9-10 on the right chest wall laterally along the posterior axillary line. The skin was anesthetized 1% plain lidocaine. A small 2 cm incision was made with a knife, subcutaneous tissue anesthetized intercostal musculature ties as well. Using a Maribell clamp, the chest was entered bluntly. Using an index finger, I was able to get into the pleural space and break up some filmy loculations. I could feel the right hemidiaphragm somewhat firm inferiorly. I took a 30 [place] chest tube and trimmed approximately 2 cm off of the distal end. The chest tube was inserted into the right pleural space uneventfully, and immediately 100 cc of straw-colored fluid , nonpurulent, was evacuated from the right chest. The chest tube was secured with a 2-0 Prolene suture, and a second 2-0 Prolene suture was used as a pursestring. The chest tube was hooked to Pleur-evac drain, with the evacuation of another 150 cc of fluid. There was no airleak. Patient had a decent cough and expelled some more fluid. The fluid became somewhat sanguinous likely related to the chest tube insertion trauma. Patient tolerated procedure well. Fluoroscopic image showed appropriate positioning of the chest tube in the posterior lateral position. Appropriate Xeroform 4 x 4's and tape dressing applied. Patient was taken back to the third floor where a upright chest x-ray will be obtained. Plan: 1. Leave chest tube to waterseal; change dressing every day-order written 2. Encourage brisk pulmonary toilet with coughing, incentive spirometry 3. We will follow clinically and by serial radiographs.
[2019-10-15] MEDS ORDERED: PROMETHAZINE HCL INJ 25 MG/1 ML VIAL IV PRN (14:30)
[2019-10-15] MEDS ORDERED: ONDANSETRON HCL INJ/PF 4 MG/2 ML SDV IV PRN (14:30)
--- NOTE | 2019-10-15 15:09 | RADIOLOGY REPORT (SQ) ---
EXAM DESCRIPTION: CHEST SINGLE VIEW IMAGES COMPLETED DATE/TIME: 10/15/2019 2:55 pm REASON FOR STUDY: chest tube insertion (Right) COMPARISON: 10/13/2019 EXAM PARAMETERS: NUMBER OF VIEWS: One view. TECHNIQUE: Single frontal radiographic view of the chest acquired. RADIATION DOSE: NA LIMITATIONS: None. FINDINGS: LUNGS AND PLEURA: Interval placement of a large bore right basilar chest tube with residua l loculated right-sided hydropneumothorax. Subcutaneous gas along the right chest wall. Unremarkabl e left hemithorax. MEDIASTINUM AND HILAR STRUCTURES: Right perihilar infrahilar opacities. HEART AND VASCULAR STRUCTURES: Stable. BONES: No acute findings. HARDWARE: Large bore right basilar chest tube. OTHER: No other significant finding. IMPRESSION: Interval placement of a large bore right basilar chest tube. Loculated right basilar hy dropneumothorax with mildly decreased size of the pleural fluid component from prior. TECHNICAL DOCUMENTATION: JOB ID: [id number] 2010 [employer]- All Rights Reserved Reading location - IP/workstation name: [email or web address]
[2019-10-15] MEDS: MORPHINE SULFATE 10 MG/ML INJ IV PRN (20:37)
--- NOTE | 2019-10-15 20:53 | PDOC CONSULTATION ---
Consultation Consult Date: 10/15/19 Provider Consulted: Sofie GOLDEN Consult reason:: Hyponatremia, RTA, and renal transplant patient. History of Present Illness Admission Date/PCP: 10/12/19 00:36 History of Present Illness: HAYLEE MORELAND is a 29 year old male with a renal transplant from a live donor 4 years ago after being ESRD due to untreated hypertension, hypertension, seizures, recent discharge from [facility] after being admitted for right- sided pleural effusion. Back in the ER after being sent by his weighmaster lead due to the right sided pleural effusion not improving. With his previous hospitalization he had a right-sided thoracentesis that removed 900 cc of fluid. The fluid analysis showed as an exudative pleural effusion. Pleural fluid cultures returned back negative and cytology was negative for any malignancy. At that time the patient discharged on levofloxacin 750 mg p.o. daily for another 7 days. In the ED and still today the patient is complaining of right-sided pleuritic chest pain sharp, 7/10 with SOB. It is worse with breathing and movement. He was also found on his labs to have an elevated creatinine of 1.5 and a bun of 33. Sodium was 130.4, potassium of 5.9, bicarb of 19, an elevated white count. He was given normal saline at a gentle rate and started on empiric antibiotics. In the hospital a second thoracentesis was done and removed just over 250mL with fluid still remaining behind. Due to that he had a chest tube placed. The EMA quickly resolved with the normal saline. The sodium remained stable around 127 to 131. Bicarb trended down and then up. Due to the sodium he had his cortisol checked which was 4.65 at 5am on 10/13. Cosyntropin test came back as normal, ACTH was still pending, Urine sodium was 14, urine osmolality was 198 and serum osmolality was 271. Patient today denies any nausea/vomiting or diarrhea prior to coming to the ospital. He denies any extra swelling or edema. Urine output has been normal. He does claim to have worked out in the heat some and sweated a good amount. He drinks about 64 to 96oz of water a day. Past Medical History Cardiac Medical History: Reports: Hypertension-primary Neurological Medical History: Reports: Seizures - last over 1 yr ago Renal/ Medical History: Reports: End Stage Renal Disease, Renal Transplant Psychiatric Medical History: Denies: Depression Past Surgical History Past Surgical History: Reports: None Social History Smoking Status: Current Every Day Smoker Electronic Cigarette use?: No Last Time Smoked: 20 Frequency of Alcohol Use: Social Hx Recreational Drug Use: No Drugs: None Hx Prescription Drug Abuse: No Family History Parental Family History Reviewed: Yes Children Family History Reviewed: Unknown Sibling(s) Family History Reviewed.: Unknown Medication/Allergy Home Medications: Mycophenolate Sodium [Myfortic 180 mg Tablet.dr] 720 mg PO BID 08/09/17 Tacrolimus [Prograf] 2 mg PO Q12 08/09/17 Levetiracetam [Keppra 500 mg Tablet] 500 mg PO Q12 #30 tablet 08/10/17 Prednisone 10 mg PO DAILY 10/20/18 Amlodipine Besylate [Norvasc 5 mg Tablet] 5 mg PO DAILY 10/01/19 Carvedilol [Coreg 6.25 mg Tablet] 6.25 mg PO Q12 10/01/19 Lisinopril [Prinivil 5 mg Tablet] 5 mg PO DAILY 10/01/19 Levofloxacin [Levaquin 750 mg Tablet] 750 mg PO DAILY #7 tablet 10/04/19 Allergies/Adverse Reactions: No Known Allergies Allergy (Verified 10/11/19 17:35) Review of Systems Constitutional: PRESENT: anorexia. ABSENT: chills, fever(s), night sweats, weakness Eyes: ABSENT: visual disturbances Nose, Mouth, and Throat: ABSENT: headache(s) Cardiovascular: PRESENT: chest pain, dyspnea on exertion. ABSENT: edema, orthropnea, palpitations Respiratory: PRESENT: cough, dyspnea. ABSENT: sputum Gastrointestinal: ABSENT: abdominal pain, constipation, diarrhea, nausea, vomiting Genitourinary: ABSENT: difficulty urinating, dysuria Neurological: ABSENT: dizziness, focal weakness, weakness Physical Exam Vital Signs: Temp Pulse Resp BP Pulse Ox 97.9 F 63 16 151/85 H 98 10/15/19 07:53 10/15/19 14:00 10/15/19 08:00 10/15/19 07:53 10/15/19 08:00 Intake & Output 10/14/19 10/15/19 10/16/19 06:59 06:59 06:59 Intake Total 3290 2420 1650 Output Total 6939 135 5398 Balance 1989 2119 -1050 Weight 80.6 kg 80 kg General appearance: PRESENT: mild distress - -from pain, well-developed, well- nourished Mouth exam: PRESENT: moist, neck supple Neck exam: ABSENT: JVD, tracheal deviation Respiratory exam: PRESENT: crackles, rales. ABSENT: clear to auscultation margaret, wheezes Cardiovascular exam: PRESENT: +S1, +S2 GI/Abdominal exam: PRESENT: soft. ABSENT: ascites, distended Extremities exam: ABSENT: pedal edema, +1 edema, +2 edema Musculoskeletal exam: PRESENT: normal inspection. ABSENT: tenderness Neurological exam: PRESENT: alert, awake, oriented to person, oriented to place, oriented to time, oriented to situation Psychiatric exam: PRESENT: appropriate affect, normal mood Skin exam: PRESENT: dry, intact, warm. ABSENT: cyanosis Results Laboratory Results: 10/15/19 07:31 10/15/19 07:31 10/12/19 10/12/19 10/12/19 11:45 11:45 11:45 WBC RBC Hgb Hct MCV MCH MCHC RDW Plt Count Seg Neutrophils % Sodium Potassium Chloride Carbon Dioxide Anion Gap BUN Creatinine Est GFR ( Amer) Glucose Calcium Magnesium Fluid pH 7.2 Fluid Glucose Fluid Total Protein 3.1 Fluid Albumin Fluid LDH 205 Fluid Amylase 10/12/19 10/12/19 10/12/19 11:45 11:45 11:45 WBC RBC Hgb Hct MCV MCH MCHC RDW Plt Count Seg Neutrophils % Sodium Potassium Chloride Carbon Dioxide Anion Gap BUN Creatinine Est GFR ( Amer) Glucose Calcium Magnesium Fluid pH Fluid Glucose 72 Fluid Total Protein Fluid Albumin 1.8 Fluid LDH Fluid Amylase 40 10/15/19 10/15/19 07:31 07:31 WBC 7.5 RBC 4.43 Hgb 13.4 L Hct 39.2 MCV 88 MCH 30.3 MCHC 34.2 RDW 12.2 Plt Count 269 Seg Neutrophils % 77.8 Sodium 129.4 L Potassium 5.0 Chloride 108 H Carbon Dioxide 19 L Anion Gap 2 L BUN 23 H Creatinine 1.04 Est GFR ( Amer) > 60 Glucose 84 Calcium 9.6 Magnesium 1.7 Fluid pH Fluid Glucose Fluid Total Protein Fluid Albumin Fluid LDH Fluid Amylase Impressions: Abdomen Ultrasound 10/12/19 00:00 IMPRESSION: No gallstones, gallbladder wall thickening or pericholecystic fluid Antegrade portal venous flow. Grossly normal liver echotexture Right lower quadrant transplant kidney normal blood flow. No hydronephrosis. Thoracentesis Ultrasound 10/12/19 01:06 IMPRESSION: SUCCESSFUL THORACENTESIS USING ULTRASOUND GUIDANCE. Chest X-Ray 10/15/19 14:08 IMPRESSION: Interval placement of a large bore right basilar chest tube. Loculated right basilar hydropneumothorax with mildly decreased size of the pleural fluid component from prior. Assessment & Plan - Diagnosis (1) Hyponatremia Is this a current diagnosis for this admission?: Yes Plan: Possibly from: tacrolimus, checking levels; drinking to much water, restricting fluids to 32 to 40oz a day; SIADH, less likely with a low urine sodium and osmolality. Other differentials could be from pneumonia, awaiting cultures. Also possibly from lung cancer, awaiting results from recent chest tube placement. Will reassess for further treatmentomorrow once all labs are in. (2) Metabolic acidosis, normal anion gap (NAG) Is this a current diagnosis for this admission?: Yes Plan: possibly from tacrolimus, will look to check the levels. Also possible RTA or hypoaldosteronism, awaiting lab results. (3) EMA (acute kidney injury) Is this a current diagnosis for this admission?: Yes Plan: nonoliguric, looks to have been related to dehydration. Resolved after being given normal saline. (4) Hyperkalemia Is this a current diagnosis for this admission?: Yes Plan: Possibly from: tacrolimus, checking levels; dehydration; RTA (5) half-way systemic steroid user Is this a current diagnosis for this admission?: Yes Plan: due to renal transplant, possible explentation for low cortisol levels and normal cosytropin results. (6) Recurrent pleural effusion on right Is this a current diagnosis for this admission?: Yes Plan: recently had a chest tube placed (7) Renal transplant recipient Is this a current diagnosis for this admission?: Yes Plan: on mycophenolate and tacrolimus, checking a tac level tomorrow. (8) Hypertension Qualifiers: Hypertension type: essential hypertension Qualified Code(s): I10 - Essentia l (primary) hypertension Is this a current diagnosis for this admission?: Yes Plan: slowly improving (9) Pneumonia Qualifiers: Pneumonia type: due to unspecified organism Laterality: right Lung location: lower lobe of lung Qualified Code(s): J18.9 - Pneumonia, unspecified organism Is this a current diagnosis for this admission?: Yes Plan: on cefepime and linezolid, now with a chest tube to help (10) Seizure disorder Plan: on keppra (11) History of hepatitis C virus infection Is this a current diagnosis for this admission?: Yes Plan: patient was being evaluated for possible cirrhosis.
[2019-10-16] MEDS: OXYCODONE-ACETAMINOPHEN 5-325 MG TABLET PO PRN ×4 (04:44→18:43)
[2019-10-16 07:23] LABS: ABSOLUTE EOSINOPHILS # (AUTO) 0.1 10^3/uL (0.0-0.6); ABSOLUTE LYMPHOCYTES (AUTO) 0.5 10^3/uL (0.5-4.7); ABSOLUTE MONOCYTES (AUTO) 0.7 10^3/uL (0.1-1.4); ABSOLUTE NEUT (AUTO) 7.5 10^3/uL (1.7-8.2); BASOPHILS % (AUTO) 0.5 % (0-2); EOSINOPHILS % (AUTO) 1.2 % (0-6); HEMATOCRIT 40.8 % (37.9-51.0); HEMOGLOBIN 14.3 g/dL (13.5-17.0); LYMPHOCYTES % (AUTO) 5.1 % (13-45); MEAN CORPUSCULAR HEMOGLOBIN 30.4 pg (27.0-33.4); MEAN CORPUSCULAR VOLUME 87 fl (80-97); MONOCYTES % (AUTO) 8.2 % (3-13); PLATELET COUNT 274 10^3/uL (150-450); RED CELL DISTRIBUTION WIDTH 12.1 % (11.5-14.0); TOTAL CELLS COUNTED % (AUTO) 100 %; WHITE BLOOD COUNT 8.8 10^3/uL (4.0-10.5)
[2019-10-16 07:34] LABS: BLOOD UREA NITROGEN 23 mg/dL (7-20); CALCIUM 9.9 mg/dL (8.4-10.2); CHLORIDE 107 mmol/L (98-107); GLUCOSE 99 mg/dL (75-110)
[2019-10-16 07:40] LABS: CARBON DIOXIDE 18 mmol/L (22-30)
[2019-10-16 07:41] LABS: ANION GAP 4 (5-19)
[2019-10-16] MEDS: MORPHINE SULFATE 10 MG/ML INJ IV PRN ×4 (08:04→21:25)
[2019-10-16] MEDS: IPRATROPIUM/ALBUTEROL 0.5-2.5 MG/3 ML AMPUL NEB SCH ×3 (08:05→19:55)
[2019-10-16] MEDS: FAMOTIDINE 20 MG TABLET PO SCH ×2 (09:44→21:32)
[2019-10-16] MEDS: CEFEPIME 1 GM/D5W RTU 1 GM/50 ML RTUPB IV SCH ×2 (09:44→21:30)
[2019-10-16] MEDS: TACROLIMUS ANHYDROUS 1 MG CAPSULE PO SCH ×2 (09:45→21:32)
[2019-10-16] MEDS: LISINOPRIL 5 MG TABLET PO SCH (09:45)
[2019-10-16] MEDS: MYCOPHENOLATE MOFETIL 250 MG CAPSULE PO SCH ×2 (09:46→17:19)
[2019-10-16] MEDS: AMLODIPINE BESYLATE 5 MG TABLET PO SCH (09:46)
[2019-10-16] MEDS: CARVEDILOL 6.25 MG TABLET PO SCH ×2 (09:46→21:32)
[2019-10-16] MEDS: PREDNISONE 10 MG TABLET PO SCH (09:46)
[2019-10-16] MEDS: LEVETIRACETAM 500 MG TABLET PO SCH ×2 (09:46→21:32)
--- NOTE | 2019-10-16 09:54 | PDOC PROGRESS REPORT ---
Subjective Progress Note for:: 10/16/19 Reason For Visit: PLEURAL EFFUSION, CHEST PAIN Having chest tube site pain, breathing better. No problems overnight. No fever. Physical Exam Vital Signs: Temp Pulse Resp BP Pulse Ox 97.9 F 69 18 152/91 H 97 10/16/19 07:55 10/16/19 08:05 10/16/19 08:05 10/16/19 07:55 10/16/19 08:05 Intake & Output 10/15/19 10/16/19 10/17/19 06:59 06:59 06:59 Intake Total 2420 2200 Output Total 300 4000 Balance 2120 -1800 Weight 80 kg 79.5 kg General appearance: PRESENT: no acute distress Respiratory exam: PRESENT: other - Chest tube site examined. No air leaking. Pleur-evac to waterseal, no air leak, minimal fluctuation. DRained 400 cc since insertion Results Laboratory Results: 10/16/19 06:30 10/16/19 06:38 10/12/19 10/16/19 10/16/19 11:45 06:30 06:38 WBC 8.8 RBC 4.70 Hgb 14.3 Hct 40.8 MCV 87 MCH 30.4 MCHC 35.0 RDW 12.1 Plt Count 274 Seg Neutrophils % 85.0 H Sodium 128.7 L Potassium 5.0 Chloride 107 Carbon Dioxide 18 L Anion Gap 4 L BUN 23 H Creatinine 1.02 Est GFR ( Amer) > 60 Glucose 99 Calcium 9.9 Fluid pH 7.2 Impressions: Abdomen Ultrasound 10/12/19 00:00 IMPRESSION: No gallstones, gallbladder wall thickening or pericholecystic fluid Antegrade portal venous flow. Grossly normal liver echotexture Right lower quadrant transplant kidney normal blood flow. No hydronephrosis. Thoracentesis Ultrasound 10/12/19 01:06 IMPRESSION: SUCCESSFUL THORACENTESIS USING ULTRASOUND GUIDANCE. Chest X-Ray 10/15/19 14:08 IMPRESSION: Interval placement of a large bore right basilar chest tube. Loculated right basilar hydropneumothorax with mildly decreased size of the pleural fluid component from prior. Assessment & Plan - Diagnosis (1) Recurrent pleural effusion on right Is this a current diagnosis for this admission?: Yes Plan: Impression: Doing reasonably well status post formal chest tube insertion 20 hours ago, with serous drainage, cultures pending. Plan: 1. Increase pulmonary toilet with coughing, deep breathing, and hiking in the halls 2. We will obtain PA lateral chest x-ray today to assess interval change in right thoracic cavity (2) Smoker Is this a current diagnosis for this admission?: Yes (3) Renal transplant recipient Is this a current diagnosis for this admission?: Yes (4) Hypertension Qualifiers: Hypertension type: essential hypertension Qualified Code(s): I10 - Essential (primary) hypertension Is this a current diagnosis for this admission?: Yes (5) Pneumonia Qualifiers: Pneumonia type: due to unspecified organism Laterality: right Lung location: lower lobe of lung Qualified Code(s): J18.9 - Pneumonia, unspecified organism Is this a current diagnosis for this admission?: Yes (7) COPD (chronic obstructive pulmonary disease) Is this a current diagnosis for this admission?: Yes
[2019-10-16] MEDS: LINEZOLID 600 MG/300 ML RTUPB IV SCH ×2 (11:00→22:53)
[2019-10-16] MEDS: DOCUSATE SODIUM 100 MG CAPSULE PO SCH ×2 (11:00→17:19)
[2019-10-16] MEDS: HEPARIN SOD (PORCINE) 5,000 UNIT/ML 1 ML VIAL SUBCUT SCH ×2 (13:10→21:41)
--- NOTE | 2019-10-16 13:46 | PDOC PROGRESS REPORT ---
Subjective Progress Note for:: 10/16/19 Subjective:: HAYLEE MORELAND is a 29 year old male ESRD due to untreated hypertension, S/P live donor renal transplant 4 years ago, hypertension, seizures, who was recently discharged from [facility] after being admitted for right-sided pleural effusion. Patient had a right-sided thoracentesis and 900 cc fluid was removed, fluid analysis showed exudative pleural effusion, pleural fluid cultures returned back negative and cytology was negative for any malignancy patient was discharged home on levofloxacin 750 mg p.o. daily for another 7 days. Patient is presented to ED today after being called by his cigar head piercer to report to ED as his right-sided pleural effusion had not improved. Patient is complaining of right-sided pleuritic chest pain sharp, 7/10 on severity scale, worse with breathing and movement, associated with shortness of breath. Denies any fever, headache, chills, nausea, vomiting, diarrhea, constipation, weight changes, orthopnea, paroxysmal nocturnal dyspnea or any urinary symptoms. In ED he was noted to have worsening leukocytosis, chest x-ray showed worsening right-sided pleural effusion hyperkalemia and EMA. Hospitalist was consulted for admission. 10/16/2019. No acute events overnight. Status post right-sided chest tube placement, patient complaining of pain at the site of chest tube placement, could not get a good night sleep due to right-sided chest pain, sitting up in apparent use, denies any fever, chills, nausea, vomiting, diarrhea, constipation or any urinary symptoms. Reason For Visit: PLEURAL EFFUSION, CHEST PAIN Physical Exam Vital Signs: Temp Pulse Resp BP Pulse Ox 97.7 F 62 16 137/84 H 100 10/16/19 11:37 10/16/19 11:37 10/16/19 11:37 10/16/19 11:37 10/16/19 11:37 Intake & Output 10/15/19 10/16/19 10/17/19 06:59 06:59 06:59 Intake Total 2420 2200 447 Output Total 300 4000 700 Balance 2120 -1800 -253 Weight 80 kg 79.5 kg General appearance: PRESENT: no acute distress, well-developed, well-nourished Head exam: PRESENT: atraumatic, normocephalic Respiratory exam: PRESENT: clear to auscultation margaret, other - Chest tube in place. Tender around chest tube placement site. No leakage. No crepitus.. ABSENT: rales, rhonchi, wheezes Cardiovascular exam: PRESENT: RRR. ABSENT: diastolic murmur, rubs, systolic murmur GI/Abdominal exam: PRESENT: normal bowel sounds, soft. ABSENT: distended, guarding, mass, organolmegaly, rebound, tenderness Neurological exam: PRESENT: alert, awake, oriented to person, oriented to place, oriented to time, oriented to situation, CN II-XII grossly intact. ABSENT: motor sensory deficit Results Laboratory Results: 10/16/19 06:30 10/16/19 06:38 10/16/19 10/16/19 06:30 06:38 WBC 8.8 RBC 4.70 Hgb 14.3 Hct 40.8 MCV 87 MCH 30.4 MCHC 35.0 RDW 12.1 Plt Count 274 Seg Neutrophils % 85.0 H Sodium 128.7 L Potassium 5.0 Chloride 107 Carbon Dioxide 18 L Anion Gap 4 L BUN 23 H Creatinine 1.02 Est GFR ( Amer) > 60 Glucose 99 Calcium 9.9 10/12/19 11:45 Pleural Fluid - Right Pleural Effusion Gram Stain - Final 10/12/19 11:45 Pleural Fluid - Right Pleural Effusion Body Fluid Culture - Final NO AEROBIC OR ANAEROBIC ORGANISMS RECOVERED Impressions: Abdomen Ultrasound 10/12/19 00:00 IMPRESSION: No gallstones, gallbladder wall thickening or pericholecystic fluid Antegrade portal venous flow. Grossly normal liver echotexture Right lower quadrant transplant kidney normal blood flow. No hydronephrosis. Thoracentesis Ultrasound 10/12/19 01:06 IMPRESSION: SUCCESSFUL THORACENTESIS USING ULTRASOUND GUIDANCE. Chest X-Ray 10/15/19 14:08 IMPRESSION: Interval placement of a large bore right basilar chest tube. L oculated right basilar hydropneumothorax with mildly decreased size of the pleural fluid component from prior. Assessment and Plan - Diagnosis (1) Recurrent pleural effusion on right Is this a current diagnosis for this admission?: Yes Plan: Likely infectious process secondary to pneumonia. Status post thoracentesis 10/02/2019, 900 cc removed. Status post thoracentesis 10/12/2019 260 cc removed. Low yield due to septations noted on ultrasound as per radiology. Status post chest tube placement 10/15/2019. Fluid analysis is consistent with uncomplicated parapneumonic effusion given patient is immunosuppressed and status post renal transplant malignancy is also a possibility. Unfortunately, it seems that though cytology was ordered, no cytology was sent and order was somehow discontinued. Pleural fluid recent for cytology. Gram stain and culture negative. Pulmonology consulted. Pending recommendations. (2) Pneumonia Qualifiers: Pneumonia type: due to unspecified organism Laterality: right Lung location: lower lobe of lung Qualified Code(s): J18.9 - Pneumonia, unspecified organism Is this a current diagnosis for this admission?: Yes Plan: Likely unresolved pneumonia from previous hospitalization complicated by parapneumonic effusion. Blood cultures currently negative Empiric broad-spectrum IV antibiotics with linezolid and cefepime. Leukocytosis seems to have resolved now. (3) Acute kidney injury superimposed on CKD Is this a current diagnosis for this admission?: Yes Plan: Resolved. Electrolytes WNL. Creatinine WNL. Likely prerenal, history of lifelong renal transplant x4 years. Monitor electrolytes and replace as needed. Avoid nephrotoxic meds. (4) Hyperkalemia Is this a current diagnosis for this admission?: Yes Plan: Received Kayexalate on 10/12/2019. Currently resolved but seems to be trending back up. We will continue to monitor BMP. (5) Renal transplant recipient Is this a current diagnosis for this admission?: Yes Plan: History of left lower renal transplant x4 years. On steroids, mycophenolate mofetil and tacrolimus. (6) Chest pain, pleuritic Is this a current diagnosis for this admission?: Yes Plan: Pleuritic-type chest pain. Unlikely cardiac in origin. Likely due to right- sided pleural effusion/pneumonia. Pain control as needed. (7) History of hepatitis C virus infection Is this a current diagnosis for this admission?: Yes Plan: History of hep C infection. Pending genotype. (8) Hyponatremia Is this a current diagnosis for this admission?: Yes Plan: Euvolemic hypoosmolar hyponatremia. Urine sodium is quite low making SIADH very unlikely. Note patient is on Keppra which caused her hyponatremia as well as tacrolimus. Pending tacrolimus level. A.m. cortisol yesterday was borderline low but patient had very normal response to cosyntropin test making primary adrenal insufficiency very unlikely. Possibly it is secondary to hypoaldosteronism. Sodium seems to be stable around 128-131 during this admission and prior hospitalization. Nephrology consulted. Recommendations noted. (9) prison systemic steroid user Is this a current diagnosis for this admission?: Yes Plan: On prednisone 10 mg daily for immunosuppression for renal transplant.
--- NOTE | 2019-10-16 15:20 | RADIOLOGY REPORT (SQ) ---
EXAM DESCRIPTION: CT ABD/PELVIS NO ORAL OR IV IMAGES COMPLETED DATE/TIME: 10/16/2019 2:10 pm REASON FOR STUDY: pleural effusion, rule out occult malignancy COMPARISON: Chest films 10/15/2019 CT chest 10/01/2019 CT abdomen pelvis 10/20/2018 TECHNIQUE: CT scan of the abdomen and pelvis performed without intravenous or oral contrast. Images reviewed with lung, soft tissue, and bone windows. Reconstructed coronal and sagittal MPR images revi ewed. All images stored on PACS. All CT scanners at this facility use dose modulation, iterative reconstruction, and/or weight based d osing when appropriate to reduce radiation dose to as low as reasonably achievable (ALARA). [facility]: Dose Right [facility]: CareDose [facility]: Dose Right [facility]: Teradose 4D [facility]: VuMedi RADIATION DOSE: CT Rad equipment meets quality standard of care and radiation dose reduction techniq ues were employed. CTDIvol: 6.5 mGy. DLP: 378 mGy-cm.mGy. LIMITATIONS: No oral or IV contrast FINDINGS: LOWER CHEST: A large bore right chest tube is present, and a complex loculated right pleur al effusion with multiple air-fluid levels. There is a rind of pleural thickening along the peripher y of the right middle lobe, and persistent consolidation and volume loss in the right lower lobe. Trace left pleural effusion. No significant left basilar airspace disease. No left chest tube. NON-CONTRASTED LIVER, SPLEEN, ADRENALS: Evaluation limited by lack of IV contrast. No identified sign ificant masses. PANCREAS: No masses. No peripancreatic inflammatory changes. GALLBLADDER: No identified stones by CT criteria. No inflammatory changes to suggest cholecystitis. SALAMATOF KIDNEYS AND URETERS: Diffusely small with profound cortical thinning. No stones or hydronephr osis. Question 1 cm cyst posterior right mid-pole kidney. RIGHT LOWER QUADRANT TRANSPLANT KIDNEY: Increased in size 18 cm in length with diffuse cortical thic kening best shown on coronal image 40 (was 15 cm in length on 10/20/2018). No hydronephrosis or hydro ureter. No transplant kidney stones. AORTA AND RETROPERITONEUM: No aneurysm. No retroperitoneal masses or adenopathy. BOWEL AND PERITONEAL CAVITY: No obvious masses or inflammatory changes. No free fluid. APPENDIX: Not visualized PELVIS, BLADDER, AND ABDOMINAL WALL:No abnormal masses. Trace pelvic cul-de-sac free fluid. Bladder normal. BONES: No significant findings. OTHER: No other significant finding. IMPRESSION: Loculated pleural effusion at the right posterior lower hemithorax with air-fluid levels . Persistent right lower lobe collapse and consolidation Enlarged right lower quadrant transplant kidney with cortical thickening. Consider follow-up transpl ant kidney Doppler to evaluate for signs of rejection. Correlate clinically for pyelonephritis causi ng transplant kidney swelling COMMENT: Quality ID # [id number]: Final reports with documentation of one or more dose reduction techniques (e.g., Automated exposure control, adjustment of the mA and/or kV according to patient size, use of iterative reconstruction technique) TECHNICAL DOCUMENTATION: JOB ID: [id number] 2010 [employer]- All Rights Reserved Reading location - IP/workstation name: [email or web address]
[2019-10-16] MEDS: LIDOCAINE 5% (700 MG) TRANSDERMAL ADH..PATCH TP SCH (15:22)
--- NOTE | 2019-10-16 15:41 | RADIOLOGY REPORT (SQ) ---
EXAM DESCRIPTION: CHEST 2 VIEWS IMAGES COMPLETED DATE/TIME: 10/16/2019 2:08 pm REASON FOR STUDY: interval change right chest COMPARISON: 10/15/2019 EXAM PARAMETERS: NUMBER OF VIEWS: two views TECHNIQUE: Digital Frontal and Lateral radiographic views of the chest acquired. RADIATION DOSE: NA LIMITATIONS: none FINDINGS: LUNGS AND PLEURA: Improved loculated pleural effusion. Chest tube remains in place. Lou ot exclude nodularity in the right base MEDIASTINUM AND HILAR STRUCTURES: No masses or contour abnormalities. HEART AND VASCULAR STRUCTURES: Heart normal size. No evidence for failure. BONES: No acute findings. HARDWARE: None in the chest. OTHER: No other significant finding. IMPRESSION: Improved pleural effusion. Chest tube remains in place. Cannot exclude airspace diseas e in the right base TECHNICAL DOCUMENTATION: JOB ID: [id number] 2010 [email or web address]- All Rights Reserved Reading location - IP/workstation name: [email or web address]
[2019-10-16] MEDS: NORMAL SALINE 1000 ML 1,000 ML IV PRN (17:29)
--- NOTE | 2019-10-16 17:34 | PDOC PROGRESS REPORT ---
<GURPREET RAE M - Last Filed: 10/16/19 17:18> Subjective Progress Note for:: 10/16/19 Subjective:: Patient was seen this morning sitting up in his bed about to eat lunch. At the time he was still having chest pain where the chest tube was. He no longer had the pleuritic chest pain. His SOB have also significantly improved. According the nurse in charge of his care, Kassidy, the hospitalist was looking to do a chest and abdominal CT to screen for masses. He continues to have good urine productio n. Appetite is slightly better, he denies n/v/d. Reason For Visit: PLEURAL EFFUSION, CHEST PAIN Physical Exam Vital Signs: Temp Pulse Resp BP Pulse Ox 97.9 F 60 16 140/84 H 100 10/16/19 16:07 10/16/19 16:07 10/16/19 16:07 10/16/19 16:07 10/16/19 16:07 Intake & Output 10/15/19 10/16/19 10/17/19 06:59 06:59 06:59 Intake Total 2420 2200 797 Output Total 300 4000 700 Balance 2120 -1800 97 Weight 80 kg 79.5 kg General appearance: PRESENT: no acute distress, well-developed, well-nourished Mouth exam: PRESENT: moist, neck supple Neck exam: ABSENT: JVD, tracheal deviation Respiratory exam: PRESENT: crackles, decreased breath sounds, rales. ABSENT: clear to auscultation margaret, wheezes Cardiovascular exam: PRESENT: +S1, +S2 GI/Abdominal exam: PRESENT: soft. ABSENT: ascites, distended, tenderness Extremities exam: ABSENT: pedal edema, +1 edema, +2 edema Musculoskeletal exam: PRESENT: normal inspection. ABSENT: tenderness Neurological exam: PRESENT: alert, awake, oriented to person, oriented to place, oriented to time, oriented to situation Psychiatric exam: PRESENT: appropriate affect, normal mood Skin exam: PRESENT: dry, intact, warm. ABSENT: cyanosis Results Laboratory Results: 10/16/19 06:30 10/16/19 06:38 10/16/19 10/16/19 06:30 06:38 WBC 8.8 RBC 4.70 Hgb 14.3 Hct 40.8 MCV 87 MCH 30.4 MCHC 35.0 RDW 12.1 Plt Count 274 Seg Neutrophils % 85.0 H Sodium 128.7 L Potassium 5.0 Chloride 107 Carbon Dioxide 18 L Anion Gap 4 L BUN 23 H Creatinine 1.02 Est GFR ( Amer) > 60 Glucose 99 Calcium 9.9 10/12/19 11:45 Pleural Fluid - Right Pleural Effusion Fungal Smear - Final 10/12/19 11:45 Pleural Fluid - Right Pleural Effusion Fungal Smear - Final 10/12/19 11:45 Pleural Fluid - Right Pleural Effusion AFB Smear Concentration - Final 10/12/19 11:45 Pleural Fluid - Right Pleural Effusion Acid Fast Bacilli Smear - Final 10/12/19 11:45 Pleural Fluid - Right Pleural Effusion Gram Stain - Final 10/12/19 11:45 Pleural Fluid - Right Pleural Effusion Body Fluid Culture - Final NO AEROBIC OR ANAEROBIC ORGANISMS RECOVERED Impressions: Abdomen Ultrasound 10/12/19 00:00 IMPRESSION: No gallstones, gallbladder wall thickening or pericholecystic fluid Antegrade portal venous flow. Grossly normal liver echotexture Right lower quadrant transplant kidney normal blood flow. No hydronephrosis. Thoracentesis Ultrasound 10/12/19 01:06 IMPRESSION: SUCCESSFUL THORACENTESIS USING ULTRASOUND GUIDANCE. Abdomen/Pelvis CT 10/16/19 13:39 IMPRESSION: Loculated pleural effusion at the right posterior lower hemithorax with air-fluid levels. Persistent right lower lobe collapse and consolidation Enlarged right lower quadrant transplant kidney with cortical thickening. Consider follow-up transplant kidney Doppler to evaluate for signs of rejection. Correlate clinically for pyelonephritis causing transplant kidney swelling Chest X-Ray 10/16/19 14:00 IMPRESSION: Improved pleural effusion. Chest tube remains in place. Cannot exclude airspace disease in the right base Assessment & Plan - Diagnosis (1) Hyponatremia Is this a current diagnosis for this admission?: Yes Plan: fluid restricted yesterday, will look to add normal saline. Follow up with labs tomorrow. (2) Metabolic acidosis, normal anion gap (NAG) Is this a current diagnosis for this admission?: Yes Plan: add sodium bicarb at 650mg qd (3) EMA (acute kidney injury) Is this a current diagnosis for this admission?: Yes Plan: resolved (4) Hyperkalemia Is this a current diagnosis for this admission?: Yes Plan: resolved (5) longterm systemic steroid user Is this a current diagnosis for this admission?: Yes (6) Recurrent pleural effusion on right Is this a current diagnosis for this admission?: Yes Plan: currently has a chest tube in place, has a CT to follow up on possible cause (7) Renal transplant recipient Is this a current diagnosis for this admission?: Yes Plan: on transplant rejection meds, see original note for details (8) Hypertension Qualifiers: Hypertension type: essential hypertension Qualified Code(s): I10 - Essential (primary) hypertension Is this a current diagnosis for this admission?: Yes Plan: continues to improve (9) Pneumonia Qualifiers: Pneumonia type: due to unspecified organism Laterality: right Lung location: lower lobe of lung Qualified Code(s): J18.9 - Pneumonia, unspecified organism Is this a current diagnosis for this admission?: Yes Plan: on cefepime and linazolid (11) History of hepatitis C virus infection Is this a current diagnosis for this admission?: Yes <Sofie GOLDEN - Last Filed: 10/17/19 07:25> Subjective Reason For Visit: PLEURAL EFFUSION, CHEST PAIN Physical Exam Vital Signs: Temp Pulse Resp BP Pulse Ox 97.9 F 63 16 140/84 H 96 10/16/19 16:07 10/16/19 19:55 10/16/19 19:55 10/16/19 16:07 10/16/19 19:55 Intake & Output 10/15/19 10/16/19 10/17/19 06:59 06:59 06:59 Intake Total 2420 2200 1034 Output Total 300 4000 1000 Balance 2120 -1800 34 Weight 80 kg 79.5 kg Results Laboratory Results: 10/16/19 06:30 10/16/19 06:38 10/16/19 10/16/19 06:30 06:38 WBC 8.8 RBC 4.70 Hgb 14.3 Hct 40.8 MCV 87 MCH 30.4 MCHC 35.0 RDW 12.1 Plt Count 274 Seg Neutrophils % 85.0 H Sodium 128.7 L Potassium 5.0 Chloride 107 Carbon Dioxide 18 L Anion Gap 4 L BUN 23 H Creatinine 1.02 Est GFR ( Amer) > 60 Glucose 99 Calcium 9.9 10/12/19 11:45 Pleural Fluid - Right Pleural Effusion Fungal Smear - Final 10/12/19 11:45 Pleural Fluid - Right Pleural Effusion Fungal Smear - Final 10/12/19 11:45 Pleural Fluid - Right Pleural Effusion AFB Smear Concentration - Final 10/12/19 11:45 Pleural Fluid - Right Pleural Effusion Acid Fast Bacilli Smear - Final 10/12/19 11:45 Pleural Fluid - Right Pleural Effusion Gram Stain - Final 10/12/19 11:45 Pleural Fluid - Right Pleural Effusion Body Fluid Culture - Final NO AEROBIC OR ANAEROBIC ORGANISMS RECOVERED Impressions: Abdomen Ultrasound 10/12/19 00:00 IMPRESSION: No gallstones, gallbladder wall thickening or pericholecystic fluid Antegrade portal venous flow. Grossly normal liver echotexture Right lower quadrant transplant kidney normal blood flow. No hydronephrosis. Thoracentesis Ultrasound 10/12/19 01:06 IMPRESSION: SUCCESSFUL THORACENTESIS USING ULTRASOUND GUIDANCE. Abdomen/Pelvis CT 10/16/19 13:39 IMPRESSION: Loculated pleural effusion at the right posterior lower hemithorax with air-fluid levels. Persistent right lower lobe collapse and consolidation Enlarged right lower quadrant transplant kidney with cortical thickening. Consider follow-up transplant kidney Doppler to evaluate for signs of rejection. Correlate clinically for pyelonephritis causing transplant kidney swelling Chest X-Ray 10/16/19 14:00 IMPRESSION: Improved pleural effusion. Chest tube remains in place. Cannot exclude airspace disease in the right base Assessment & Plan - Notes Notes: Patient seen and examined today by me for following initial evaluation by Gurpreet Rae PA-C. Agree with his initial evaluations and assessment. He is a young 29 years old male with history of hypertension and hepatitis C in the background of IVDU, who underwent a renal transplant in [place] approximately 4 years ago and then has been living in [place] for the last 4 years. He has been admitted with recurring right pleural effusion- s/p thoracentesis x 2. Studies indicate likely exudative effusion more suggestive of parapneumonic effusion- consider atypical/pneumocystitis pending c&s. Other relevant studies on admission showed hepatitis, EMA, acute on chronic hyponatremia and leukocytosis. He is currently on antibiotics and leukocytosis is improved. P jihanient was initially on tacrolimus and mycophenolate only for renal transplant but he had features suggestive of early rejection in early 2019 on a renal biopsy at [place] and was put on prednisone as well. Current tacrolimus levels pending. Clinically patient is dry. We will start him on normal saline besides other current guidelines. 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 Hepatitis could be part of mycophenolate and needs to rule out viral hepatitis.Rest of issues maybe Tacrolimus.
[2019-10-16] MEDS ORDERED: SODIUM BICARBONATE 650 MG TABLET PO SCH (17:45)
[2019-10-17] MEDS: HEPARIN SOD (PORCINE) 5,000 UNIT/ML 1 ML VIAL SUBCUT SCH ×3 (06:09→21:28)
[2019-10-17] MEDS: OXYCODONE-ACETAMINOPHEN 5-325 MG TABLET PO PRN ×3 (07:17→23:04)
[2019-10-17 07:26] LABS: BLOOD UREA NITROGEN 26 mg/dL (7-20); CALCIUM 10.2 mg/dL (8.4-10.2); CARBON DIOXIDE 18 mmol/L (22-30); CHLORIDE 110 mmol/L (98-107); GLUCOSE 93 mg/dL (75-110); POTASSIUM 5.2 mmol/L (3.6-5.0)
[2019-10-17 07:28] LABS: ANION GAP 4 (5-19)
[2019-10-17] MEDS: IPRATROPIUM/ALBUTEROL 0.5-2.5 MG/3 ML AMPUL NEB SCH ×3 (08:01→21:09)
[2019-10-17] MEDS ORDERED: LISINOPRIL 10 MG TABLET PO SCH (10:00)
[2019-10-17] MEDS ORDERED: LISINOPRIL 5 MG TABLET PO SCH (10:00)
[2019-10-17] MEDS: MORPHINE SULFATE 10 MG/ML INJ IV PRN ×2 (10:04→20:18)
[2019-10-17] MEDS: CEFEPIME 1 GM/D5W RTU 1 GM/50 ML RTUPB IV SCH ×2 (10:10→21:28)
[2019-10-17] MEDS: LIDOCAINE 5% (700 MG) TRANSDERMAL ADH..PATCH TP SCH (10:11)
[2019-10-17] MEDS: MYCOPHENOLATE MOFETIL 250 MG CAPSULE PO SCH ×2 (10:12→17:11)
[2019-10-17] MEDS: DOCUSATE SODIUM 100 MG CAPSULE PO SCH ×2 (10:13→17:10)
[2019-10-17] MEDS: LEVETIRACETAM 500 MG TABLET PO SCH ×2 (10:13→21:25)
[2019-10-17] MEDS: TACROLIMUS ANHYDROUS 1 MG CAPSULE PO SCH ×2 (10:13→21:26)
[2019-10-17] MEDS: FAMOTIDINE 20 MG TABLET PO SCH ×2 (10:13→21:24)
[2019-10-17] MEDS: CARVEDILOL 6.25 MG TABLET PO SCH ×2 (10:13→21:23)
[2019-10-17] MEDS: AMLODIPINE BESYLATE 5 MG TABLET PO SCH (10:14)
[2019-10-17] MEDS: PREDNISONE 10 MG TABLET PO SCH (10:14)
[2019-10-17] MEDS: SODIUM BICARBONATE 650 MG TABLET PO SCH ×2 (10:14→21:25)
[2019-10-17] MEDS: LINEZOLID 600 MG/300 ML RTUPB IV SCH ×2 (11:00→23:00)
[2019-10-17] MEDS: NORMAL SALINE 1000 ML 1,000 ML IV PRN (11:18)
--- NOTE | 2019-10-17 14:41 | PDOC PROGRESS REPORT ---
Subjective Progress Note for:: 10/17/19 Subjective:: c/o pain a chest tube site Reason For Visit: PLEURAL EFFUSION, CHEST PAIN Physical Exam Vital Signs: Temp Pulse Resp BP Pulse Ox 98.0 F 67 18 151/89 H 100 10/17/19 12:57 10/17/19 12:57 10/17/19 12:57 10/17/19 12:57 10/17/19 12:57 Intake & Output 10/16/19 10/17/19 10/18/19 06:59 06:59 06:59 Intake Total 2200 1384 1050 Output Total 4000 4100 Balance -1800 -2716 1050 Weight 79.5 kg 78 kg General appearance: PRESENT: no acute distress Head exam: PRESENT: normocephalic Eye exam: PRESENT: EOMI Ear exam: PRESENT: normal external ear exam Mouth exam: PRESENT: moist Neck exam: PRESENT: full ROM Respiratory exam: PRESENT: other - decreased bs on right Cardiovascular exam: PRESENT: RRR Pulses: PRESENT: normal radial pulses, normal femoral pulses Vascular exam: PRESENT: normal capillary refill Breast: PRESENT: Normal GI/Abdominal exam: PRESENT: soft Rectal exam: PRESENT: deferred Extremities exam: PRESENT: full ROM Musculoskeletal exam: PRESENT: full ROM Neurological exam: PRESENT: alert, awake, oriented to person, oriented to place Psychiatric exam: PRESENT: appropriate affect Skin exam: PRESENT: dry Results Laboratory Results: 10/16/19 06:30 10/17/19 06:29 10/17/19 06:29 Sodium 132.1 L Potassium 5.2 H Chloride 110 H Carbon Dioxide 18 L Anion Gap 4 L BUN 26 H Creatinine 1.12 Est GFR ( Amer) > 60 Glucose 93 Calcium 10.2 10/12/19 01:50 Blood Blood Culture - Final NO GROWTH IN 5 DAYS 10/11/19 19:30 Blood Blood Culture - Final NO GROWTH IN 5 DAYS 10/12/19 11:45 Pleural Fluid - Right Pleural Effusion Fungal Smear - Final 10/12/19 11:45 Pleural Fluid - Right Pleural Effusion Fungal Smear - Final 10/12/19 11:45 Pleural Fluid - Right Pleural Effusion AFB Smear Concentration - Final 10/12/19 11:45 Pleural Fluid - Right Pleural Effusion Acid Fast Bacilli Smear - Final 10/12/19 11:45 Pleural Fluid - Right Pleural Effusion Gram Stain - Final 10/12/19 11:45 Pleural Fluid - Right Pleural Effusion Body Fluid Culture - Final NO AEROBIC OR ANAEROBIC ORGANISMS RECOVERED Impressions: Abdomen Ultrasound 10/12/19 00:00 IMPRESSION: No gallstones, gallbladder wall thickening or pericholecystic fluid Antegrade portal venous flow. Grossly normal liver echotexture Right lower quadrant transplant kidney normal blood flow. No hydronephrosis. Thoracentesis Ultrasound 10/12/19 01:06 IMPRESSION: SUCCESSFUL THORACENTESIS USING ULTRASOUND GUIDANCE. Abdomen/Pelvis CT 10/16/19 13:39 IMPRESSION: Loculated pleural effusion at the right posterior lower hemithorax with air-fluid levels. Persistent right lower lobe collapse and consolidation Enlarged right lower quadrant transplant kidney with cortical thickening. Consider follow-up transplant kidney Doppler to evaluate for signs of rejection. Correlate clinically for pyelonephritis causing transplant kidney swelling Chest X-Ray 10/16/19 14:00 IMPRESSION: Improved pleural effusion. Chest tube remains in place. Cannot exclude airspace disease in the right base Assessment & Plan - Plan Summary Plan Summary: s/p chest tube placement for rt parapneumonic effusion improved wth chest tube chest tube op has been decreasing 125cc last 24hrs 25cc last shift. cxr improved chest tube on water seal no cxr today plan repeat cxr in am if improved, consider removal
--- NOTE | 2019-10-17 15:56 | PDOC CONSULTATION ---
Consultation Consult Date: 10/17/19 Attending physician:: RICKEY BROWN Provider Consulted: GIRMA EMERSON Consult reason:: Recurrent pleural effusion History of Present Illness Admission Date/PCP: 10/12/19 00:36 CHLOE MOSQUERA MD History of Present Illness: HAYLEE MORELAND is a 29 year old male 29-year-old male recently seen in my office for pleural effusion that he been hospitalized with leukocytosis and it appeared to be an exudative effusion no cultures were grown he was subsequently discharged the time he presented to my office he had egophony and decreased br eath sounds over the right posterior lateral chest wall he was sent to the emergency room and subsequently admitted with found to have a white count of 20,000 he had been complaining some expiratory chest pain he had another thoracentesis and subsequently had a thoracostomy tube placed with significant drainage of the fluid again the fluid appeared to be exudative. Is also interesting to note the patient is status post renal transplant and is immunocompromise insofar as he is taking CellCept as well as tacrolimus Past Medical History Cardiac Medical History: Reports: Hypertension Neurological Medical History: Reports: Seizures - last over 1 yr ago Renal/ Medical History: Reports: End Stage Renal Disease Psychiatric Medical History: Denies: Depression Past Surgical History Past Surgical History: Reports: None, Renal Transplant Social History Smoking Status: Current Every Day Smoker Last Time Smoked: 20 Frequency of Alcohol Use: Social Hx Recreational Drug Use: No Drugs: None Hx Prescription Drug Abuse: No Do you have pets?: No Have you had any respiratory illnesses as a child?: No Have you been exposed to any sick contacts recently?: No Have you had any recent respiratory illnesses?: No Have you travelled outside of [place] in the past 12 months?: No Family History Family History: Hypertension, Other - ESRD in several members of the family Parental Family History Reviewed: Yes Children Family History Reviewed: Yes Sibling(s) Family History Reviewed.: Yes Medication/Allergy Home Medications: Mycophenolate Sodium [Myfortic 180 mg Tablet.] 720 mg PO BID 08/09/17 Tacrolimus [Prograf] 2 mg PO Q12 08/09/17 Levetiracetam [Keppra 500 mg Tablet] 500 mg PO Q12 #30 tablet 08/10/17 Prednisone 10 mg PO DAILY 10/20/18 Amlodipine Besylate [Norvasc 5 mg Tablet] 5 mg PO DAILY 10/01/19 Carvedilol [Coreg 6.25 mg Tablet] 6.25 mg PO Q12 10/01/19 Lisinopril [Prinivil 5 mg Tablet] 5 mg PO DAILY 10/01/19 Levofloxacin [Levaquin 750 mg Tablet] 750 mg PO DAILY #7 tablet 10/04/19 Allergies/Adverse Reactions: No Known Allergies Allergy (Verified 10/11/19 17:35) Review of Systems All systems: reviewed and no additional remarkable complaints except as stated Physical Exam Vital Signs: Temp Pulse Resp BP Pulse Ox 98.0 F 64 18 151/89 H 100 10/17/19 12:57 10/17/19 14:00 10/17/19 12:57 10/17/19 12:57 10/17/19 12:57 Intake & Output 10/16/19 10/17/19 10/18/19 06:59 06:59 06:59 Intake Total 2200 1384 1050 Output Total 4000 4100 Balance -1800 -2716 1050 Weight 79.5 kg 78 kg General appearance: PRESENT: no acute distress, cooperative, disheveled, well- developed, well-nourished Head exam: PRESENT: atraumatic, normocephalic Eye exam: PRESENT: conjunctiva pale, EOMI. ABSENT: nystagmus, periorbital swelling, scleral icterus Mouth exam: PRESENT: dry mucosa, neck supple, tongue midline Neck exam: ABSENT: carotid bruit, full ROM, JVD, lymphadenopathy, meningismus, tenderness, thyromegaly, tracheal deviation, tracheostomy, other Respiratory exam: PRESENT: decreased breath sounds, prolonged expiratory phas, rhonchi, symmetrical, unlabored. ABSENT: retraction, stridor, tachypnea Cardiovascular exam: PRESENT: RRR, +S1, +S2. ABSENT: systolic murmur, tachycardia Pulses: PRESENT: normal radial pulses GI/Abdominal exam: PRESENT: soft. ABSENT: distended, mass, rebound, tenderness Extremities exam: PRESENT: full ROM, +1 edema. ABSENT: calf tenderness, clubbing, joint swelling, pedal edema, tenderness Musculoskeletal exam: PRESENT: ambulatory, full ROM. ABSENT: deformity, dislocation Neurological exam: PRESENT: alert, awake Psychiatric exam: PRESENT: normal mood Skin exam: PRESENT: dry, warm Results Laboratory Results: 10/16/19 06:30 10/17/19 06:29 10/17/19 06:29 Sodium 132.1 L Potassium 5.2 H Chloride 110 H Carbon Dioxide 18 L Anion Gap 4 L BUN 26 H Creatinine 1.12 Est GFR ( Amer) > 60 Glucose 93 Calcium 10.2 10/12/19 01:50 Blood Blood Culture - Final NO GROWTH IN 5 DAYS 10/11/19 19:30 Blood Blood Culture - Final NO GROWTH IN 5 DAYS 10/12/19 11:45 Pleural Fluid - Right Pleural Effusion Fungal Smear - Final 10/12/19 11:45 Pleural Fluid - Right Pleural Effusion Fungal Smear - Final 10/12/19 11:45 Pleural Fluid - Right Pleural Effusion AFB Smear Concentration - Final 10/12/19 11:45 Pleural Fluid - Right Pleural Effusion Acid Fast Bacilli Smear - Final Impressions: Abdomen Ultrasound 10/12/19 00:00 IMPRESSION: No gallstones, gallbladder wall thickening or pericholecystic fluid Antegrade portal venous flow. Grossly normal liver echotexture Right lower quadrant transplant kidney normal blood flow. No hydronephrosis. Thoracentesis Ultrasound 10/12/19 01:06 IMPRESSION: SUCCESSFUL THORACENTESIS USING ULTRASOUND GUIDANCE. Abdomen/Pelvis CT 10/16/19 13:39 IMPRESSION: Loculated pleural effusion at the right posterior lower hemithorax with air-fluid levels. Persistent right lower lobe collapse and consolidation Enlarged right lower quadrant transplant kidney with cortical thickening. Consider follow-up transplant kidney Doppler to evaluate for signs of rejection. Correlate clinically for pyelonephritis causing transplant kidney swelling Chest X-Ray 10/16/19 14:00 IMPRESSION: Improved pleural effusion. Chest tube remains in place. Cannot exclude airspace disease in the right base Assessment & Plan - Diagnosis (1) Immunocompromised state due to drug therapy Is this a current diagnosis for this admission?: Yes Plan: Prednisone tacrolimus plus CellCept (2) Metabolic acidosis, normal anion gap (NAG) Is this a current diagnosis for this admission?: Yes Plan: Status post renal transplant (3) Recurrent pleural effusion on right Is this a current diagnosis for this admission?: Yes Plan: Happy new chest tube was inserted and patient improving (4) Renal transplant recipient Is this a current diagnosis for this admission?: Yes Plan: As per nephrology (5) Seizure disorder Is this a current diagnosis for this admission?: Yes Plan: On [place] has not had a seizure in the last 6 months - Time Time Spent with patient: 55 min
--- NOTE | 2019-10-17 16:17 | PDOC PROGRESS REPORT ---
Subjective Progress Note for:: 10/17/19 Subjective:: Patient was seen this morning sitting up in bed. At the time of examination he was feeling a little better. His appetite had improved some. He does have chest pain still where the chest tube is placed. He was receiving a breathing treatment. He denies SOB, N/V/D. Looks to have great urine output. Reason For Visit: PLEURAL EFFUSION, CHEST PAIN Physical Exam Vital Signs: Temp Pulse Resp BP Pulse Ox 98.0 F 64 18 151/89 H 100 10/17/19 12:57 10/17/19 14:00 10/17/19 12:57 10/17/19 12:57 10/17/19 12:57 Intake & Output 10/16/19 10/17/19 10/18/19 06:59 06:59 06:59 Intake Total 2200 1384 1050 Output Total 4000 4100 Balance -1800 -2716 1050 Weight 79.5 kg 78 kg General appearance: PRESENT: no acute distress, well-developed, well-nourished Mouth exam: PRESENT: moist, neck supple Neck exam: ABSENT: JVD, tracheal deviation Respiratory exam: PRESENT: crackles, decreased breath sounds. ABSENT: clear to auscultation margaret, wheezes Cardiovascular exam: PRESENT: +S1, +S2 GI/Abdominal exam: PRESENT: soft. ABSENT: ascites, distended, tenderness Extremities exam: ABSENT: pedal edema, +1 edema, +2 edema Musculoskeletal exam: PRESENT: normal inspection. ABSENT: tenderness Neurological exam: PRESENT: alert, awake, oriented to person, oriented to place, oriented to time, oriented to situation Psychiatric exam: PRESENT: appropriate affect, normal mood Skin exam: PRESENT: dry, intact, warm Results Laboratory Results: 10/16/19 06:30 10/17/19 06:29 10/17/19 06:29 Sodium 132.1 L Potassium 5.2 H Chloride 110 H Carbon Dioxide 18 L Anion Gap 4 L BUN 26 H Creatinine 1.12 Est GFR ( Amer) > 60 Glucose 93 Calcium 10.2 10/12/19 01:50 Blood Blood Culture - Final NO GROWTH IN 5 DAYS 10/11/19 19:30 Blood Blood Culture - Final NO GROWTH IN 5 DAYS 10/12/19 11:45 Pleural Fluid - Right Pleural Effusion Fungal Smear - Final 10/12/19 11:45 Pleural Fluid - Right Pleural Effusion Fungal Smear - Final 10/12/19 11:45 Pleural Fluid - Right Pleural Effusion AFB Smear Concentration - Final 10/12/19 11:45 Pleural Fluid - Right Pleural Effusion Acid Fast Bacilli Smear - Final Impressions: Abdomen Ultrasound 10/12/19 00:00 IMPRESSION: No gallstones, gallbladder wall thickening or pericholecystic fluid Antegrade portal venous flow. Grossly normal liver echotexture Right lower quadrant transplant kidney normal blood flow. No hydronephrosis. Thoracentesis Ultrasound 10/12/19 01:06 IMPRESSION: SUCCESSFUL THORACENTESIS USING ULTRASOUND GUIDANCE. Abdomen/Pelvis CT 10/16/19 13:39 IMPRESSION: Loculated pleural effusion at the right posterior lower hemithorax with air-fluid levels. Persistent right lower lobe collapse and consolidation Enlarged right lower quadrant transplant kidney with cortical thickening. Consider follow-up transplant kidney Doppler to evaluate for signs of rejection. Correlate clinically for pyelonephritis causing transplant kidney swelling Chest X-Ray 10/16/19 14:00 IMPRESSION: Improved pleural effusion. Chest tube remains in place. Cannot exclude airspace disease in the right base Assessment & Plan - Diagnosis (1) Hyponatremia Is this a current diagnosis for this admission?: Yes Plan: Improving, fluid restricted, on normal saline. Follow up with labs tomorrow. (2) Metabolic acidosis, normal anion gap (NAG) Is this a current diagnosis for this admission?: Yes Plan: on sodium bicarb 650mg BID, follow up with labs tomorrow (3) Pneumonia Qualifiers: Pneumonia type: due to unspecified organism Laterality: right Lung location: lower lobe of lung Qualified Code(s): J18.9 - Pneumonia, unspecified organism Is this a current diagnosis for this admission?: Yes Plan: With him being on immunosuppressing medication, recommend treating for Pneumocystis pneumonia and placing on bactrim. (4) EMA (acute kidney injury) Is this a current diagnosis for this admission?: Yes Plan: resolved (5) Hyperkalemia Is this a current diagnosis for this admission?: Yes Plan: With increase in bicarb, there should be a potassium shift. Patient needs his potassium restricted in his diet for now. (6) [facility] systemic steroid user Is this a current diagnosis for this admission?: Yes (7) Recurrent pleural effusion on right Is this a current diagnosis for this admission?: Yes Plan: currently has a chest tube in place, has a CT to follow up on possible cause. Recommend treating for Pneumocystis pneumonia and placing on bactrim. (8) Renal transplant recipient Is this a current diagnosis for this admission?: Yes Plan: on transplant rejection meds, see original note for details (9) Hypertension Qualifiers: Hypertension type: essential hypertension Qualified Code(s): I10 - [facility] l (primary) hypertension Is this a current diagnosis for this admission?: Yes Plan: likely elevated due to pain (10) Seizure disorder Is this a current diagnosis for this admission?: Yes (11) History of hepatitis C virus infection Is this a current diagnosis for this admission?: Yes
--- NOTE | 2019-10-17 17:47 | PDOC PROGRESS REPORT ---
Subjective Progress Note for:: 10/17/19 Subjective:: HAYLEE MORELAND is a 29 year old male ESRD due to untreated hypertension, S/P live donor renal transplant 4 years ago, hypertension, seizures, who was recently discharged from [facility] after being admitted for right-sided pleural effusion. Patient had a right-sided thoracentesis and 900 cc fluid was removed, fluid analysis showed exudative pleural effusion, pleural fluid cultures returned back negative and cytology was negative for any malignancy patient was discharged home on levofloxacin 750 mg p.o. daily for another 7 days. Patient is presented to ED today after being called by his alternative energy technician to report to ED as his right-sided pleural effusion had not improved. Patient is complaining of right-sided pleuritic chest pain sharp, 7/10 on severity scale, worse with breathing and movement, associated with shortness of breath. Denies any fever, headache, chills, nausea, vomiting, diarrhea, constipation, weight changes, orthopnea, paroxysmal nocturnal dyspnea or any urinary symptoms. In ED he was noted to have worsening leukocytosis, chest x-ray showed worsening right-sided pleural effusion hyperkalemia and EMA. Hospitalist was consulted for admission. 10/16/2019. No acute events overnight. Status post right-sided chest tube placement, patient complaining of pain at the site of chest tube placement, could not get a good night sleep due to right-sided chest pain, sitting up in apparent use, denies any fever, chills, nausea, vomiting, diarrhea, constipation or any urinary symptoms. 10/17/2019. No acute events overnight. Sitting in chair in no apparent distress, still complaining of right-sided chest pain. P.o. tolerant. Denies any fever, chills, nausea, vomiting. Reason For Visit: PLEURAL EFFUSION, CHEST PAIN Physical Exam Vital Signs: Temp Pulse Resp BP Pulse Ox 98.0 F 64 16 151/87 H 100 10/17/19 16:32 10/17/19 16:32 10/17/19 16:32 10/17/19 16:32 10/17/19 16:32 Intake & Output 10/16/19 10/17/19 10/18/19 06:59 06:59 06:59 Intake Total 2200 1384 1050 Output Total 4000 4100 Balance -1800 -2716 1050 Weight 79.5 kg 78 kg General appearance: PRESENT: no acute distress, well-developed, well-nourished Head exam: PRESENT: atraumatic, normocephalic Respiratory exam: PRESENT: clear to auscultation margaret, other - Right-sided chest tube in place. Mild tenderness around chest tube placement area. No crepitus.. ABSENT: rales, rhonchi, wheezes Cardiovascular exam: PRESENT: RRR. ABSENT: diastolic murmur, rubs, systolic murmur GI/Abdominal exam: PRESENT: normal bowel sounds, soft. ABSENT: distended, guarding, mass, organolmegaly, rebound, tenderness Extremities exam: PRESENT: full ROM. ABSENT: calf tenderness, clubbing, pedal edema Neurological exam: PRESENT: alert, awake, oriented to person, oriented to place, oriented to time, oriented to situation, CN II-XII grossly intact. ABSENT: motor sensory deficit Results Laboratory Results: 10/16/19 06:30 10/17/19 06:29 10/17/19 06:29 Sodium 132.1 L Potassium 5.2 H Chloride 110 H Carbon Dioxide 18 L Anion Gap 4 L BUN 26 H Creatinine 1.12 Est GFR ( Amer) > 60 Glucose 93 Calcium 10.2 10/12/19 16:21 Blood Blood Culture - Final NO GROWTH IN 5 DAYS 10/12/19 15:46 Blood Blood Culture - Final NO GROWTH IN 5 DAYS 10/12/19 01:50 Blood Blood Culture - Final NO GROWTH IN 5 DAYS 10/11/19 19:30 Blood Blood Culture - Final NO GROWTH IN 5 DAYS 10/12/19 11:45 Pleural Fluid - Right Pleural Effusion Fungal Smear - Final 10/12/19 11:45 Pleural Fluid - Right Pleural Effusion Fungal Smear - Final 10/12/19 11:45 Pleural Fluid - Right Pleural Effusion AFB Smear Concentration - Final 10/12/19 11:45 Pleural Fluid - Right Pleural Effusion Acid Fast Bacilli Smear - Final Impressions: Abdomen Ultrasound 10/12/19 00:00 IMPRESSION: No gallstones, gallbladder wall thickening or pericholecystic fluid Antegrade portal venous flow. Grossly normal liver echotexture Right lower quadrant transplant kidney normal blood flow. No hydronephrosis. Thoracentesis Ultrasound 10/12/19 01:06 IMPRESSION: SUCCESSFUL THORACENTESIS USING ULTRASOUND GUIDANCE. Abdomen/Pelvis CT 10/16/19 13:39 IMPRESSION: Loculated pleural effusion at the right posterior lower hemithorax with air-fluid levels. Persistent right lower lobe collapse and consolidation Enlarged right lower quadrant transplant kidney with cortical thickening. Consider follow-up transplant kidney Doppler to evaluate for signs of rejection. Correlate clinically for pyelonephritis causing transplant kidney swelling Chest X-Ray 10/16/19 14:00 IMPRESSION: Improved pleural effusion. Chest tube remains in place. Cannot exclude airspace disease in the right base Assessment and Plan - Diagnosis (1) Recurrent pleural effusion on right Is this a current diagnosis for this admission?: Yes Plan: Likely infectious process secondary to parapneumonic effusion. Status post thoracentesis 10/02/2019, 900 cc removed. Status post thoracentesis 10/12/2019 260 cc removed. Low yield due to septations noted on ultrasound as per radiology. Status post chest tube placement 10/15/2019. Fluid analysis is consistent with uncomplicated parapneumonic effusion given patient is immunosuppressed and status post renal transplant malignancy is also a possibility. Unfortunately, it seems that though cytology was ordered, no cytology was sent and order was somehow discontinued. Pleural fluid resent for cytology. Gram stain and culture negative. Pulmonology consulted. Pending recommendations. (2) Pneumonia Qualifiers: Pneumonia type: due to unspecified organism Laterality: right Lung location: lower lobe of lung Qualified Code(s): J18.9 - Pneumonia, unspecified organism Is this a current diagnosis for this admission?: Yes Plan: Likely unresolved pneumonia from previous hospitalization complicated by parapneumonic effusion. Blood cultures currently negative Empiric broad-spectrum IV antibiotics with linezolid and cefepime. Leukocytosis seems to have resolved now. (3) Acute kidney injury superimposed on CKD Is this a current diagnosis for this admission?: Yes Plan: Resolved. Electrolytes WNL. Creatinine WNL. Likely prerenal, history of lifelong renal transplant x4 years. Monitor electrolytes and replace as needed. Avoid nephrotoxic meds. (4) Hyperkalemia Is this a current diagnosis for this admission?: Yes Plan: Received Kayexalate on 10/12/2019. Currently resolved but seems to be trending ba ck up. We will continue to monitor BMP. (5) Renal transplant recipient Is this a current diagnosis for this admission?: Yes Plan: History of left lower renal transplant x4 years. On steroids, mycophenolate mofetil and tacrolimus. (6) Chest pain, pleuritic Is this a current diagnosis for this admission?: Yes Plan: Pleuritic-type chest pain. Unlikely cardiac in origin. Likely due to right- sided pleural effusion/pneumonia. Pain control as needed. (7) History of hepatitis C virus infection Is this a current diagnosis for this admission?: Yes Plan: History of hep C infection. Pending genotype. (8) Hyponatremia Is this a current diagnosis for this admission?: Yes Plan: Euvolemic hypoosmolar hyponatremia. Urine sodium is quite low making SIADH very unlikely. Note patient is on Keppra which caused her hyponatremia as well as tacrolimus. Pending tacrolimus level. A.m. cortisol yesterday was borderline low but patient had very normal response to cosyntropin test making primary adrenal insufficiency very unlikely. Possibly it is secondary to hypoaldosteronism. Sodium seems to be stable around 128-131 during this admission and prior hospitalization. Nephrology consulted. Recommendations noted. 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
--- NOTE | 2019-10-17 19:57 | RADIOLOGY REPORT (SQ) ---
EXAM DESCRIPTION: CHEST SINGLE VIEW IMAGES COMPLETED DATE/TIME: 10/17/2019 7:41 pm REASON FOR STUDY: Pleural effusion followp s/p chest tube COMPARISON: Chest films 10/16/2019, 10/15/2019, 10/13/2019 EXAM PARAMETERS: NUMBER OF VIEWS: One view. TECHNIQUE: Single frontal radiographic view of the chest acquired. RADIATION DOSE: NA LIMITATIONS: None. FINDINGS: LUNGS AND PLEURA: Right large or chest tube in place, persistent right lateral costophreni c sulcus air-fluid levels from septated pleural effusion. Further decrease in fluid compared to 2019 Persistent right lower lobe consolidation. Stable right chest wall air along the lateral rib margin. No right-sided apical pneumothorax. Left hemithorax unremarkable MEDIASTINUM AND HILAR STRUCTURES: No masses. Contour normal. HEART AND VASCULAR STRUCTURES: Heart normal in size. Normal vasculature. BONES: No acute findings. HARDWARE: Unchanged right large bore chest tube OTHER: No other significant finding. IMPRESSION: Unchanged right large bore chest tube. Further clearing of multilocular pleural effusio n compared to 10/16/2019 chest films. Persistent consolidation right lower lobe worrisome for pneumonia TECHNICAL DOCUMENTATION: JOB ID: [id number] 2010 [employer]- All Rights Reserved Reading location - IP/workstation name: [email or web address]
[2019-10-18 05:40] LABS: HEMOGLOBIN 13.4 g/dL (13.5-17.0); MEAN CORPUSCULAR HEMOGLOBIN 30.1 pg (27.0-33.4); MEAN CORPUSCULAR HGB CONC 34.4 g/dL (32.0-36.0); MEAN CORPUSCULAR VOLUME 87 fl (80-97); PLATELET COUNT 230 10^3/uL (150-450); RED BLOOD COUNT 4.47 10^6/uL (4.35-5.55); RED CELL DISTRIBUTION WIDTH 12.4 % (11.5-14.0); WHITE BLOOD COUNT 5.7 10^3/uL (4.0-10.5)
[2019-10-18] MEDS: HEPARIN SOD (PORCINE) 5,000 UNIT/ML 1 ML VIAL SUBCUT SCH ×3 (05:50→21:36)
[2019-10-18 05:58] LABS: ALBUMIN 2.2 g/dL (3.5-5.0); ALKALINE PHOSPHATASE 229 U/L (38-126); ASPARTATE AMINO TRANSFERASE 77 U/L (17-59); BILIRUBIN,DIRECT 0.2 mg/dL (0.0-0.4); BILIRUBIN,TOTAL 0.6 mg/dL (0.2-1.3); BLOOD UREA NITROGEN 25 mg/dL (7-20); CALCIUM 9.8 mg/dL (8.4-10.2); CARBON DIOXIDE 19 mmol/L (22-30); CHLORIDE 113 mmol/L (98-107); GLUCOSE 85 mg/dL (75-110); POTASSIUM 5.2 mmol/L (3.6-5.0); TOTAL PROTEIN 4.8 g/dL (6.3-8.2)
[2019-10-18 06:16] LABS: ANION GAP 1 (5-19)
[2019-10-18 06:37] LABS: HEPATITS B SURFACE ANTIGEN Negative (Negative)
[2019-10-18 07:05] LABS: HEPATITIS B CORE AB TOT Negative (Negative)
[2019-10-18] MEDS: IPRATROPIUM/ALBUTEROL 0.5-2.5 MG/3 ML AMPUL NEB SCH ×3 (08:41→20:29)
[2019-10-18] MEDS: PREDNISONE 10 MG TABLET PO SCH (09:17)
[2019-10-18] MEDS: MYCOPHENOLATE MOFETIL 250 MG CAPSULE PO SCH ×2 (09:17→17:42)
[2019-10-18] MEDS: LEVETIRACETAM 500 MG TABLET PO SCH ×2 (09:17→21:35)
[2019-10-18] MEDS: SODIUM BICARBONATE 650 MG TABLET PO SCH ×2 (09:17→21:35)
[2019-10-18] MEDS: CARVEDILOL 6.25 MG TABLET PO SCH ×2 (09:17→21:35)
[2019-10-18] MEDS: FAMOTIDINE 20 MG TABLET PO SCH ×2 (09:18→21:35)
[2019-10-18] MEDS: DOCUSATE SODIUM 100 MG CAPSULE PO SCH ×2 (09:18→17:42)
[2019-10-18] MEDS: AMLODIPINE BESYLATE 5 MG TABLET PO SCH (09:18)
[2019-10-18] MEDS: CEFEPIME 1 GM/D5W RTU 1 GM/50 ML RTUPB IV SCH ×2 (09:18→21:36)
[2019-10-18] MEDS: MORPHINE SULFATE 10 MG/ML INJ IV PRN (09:18)
[2019-10-18] MEDS: LINEZOLID 600 MG/300 ML RTUPB IV SCH ×2 (09:28→21:37)
[2019-10-18] MEDS: TACROLIMUS ANHYDROUS 1 MG CAPSULE PO SCH ×2 (09:28→21:35)
[2019-10-18] MEDS: LIDOCAINE 5% (700 MG) TRANSDERMAL ADH..PATCH TP SCH (09:28)
--- NOTE | 2019-10-18 10:50 | RADIOLOGY REPORT (SQ) ---
EXAM DESCRIPTION: CHEST 2 VIEWS IMAGES COMPLETED DATE/TIME: 10/18/2019 9:16 am REASON FOR STUDY: chest tube COMPARISON: Chest radiographs performed October 14, and 2019 EXAM PARAMETERS: NUMBER OF VIEWS: two views TECHNIQUE: Digital Frontal and Lateral radiographic views of the chest acquired. RADIATION DOSE: NA LIMITATIONS: none FINDINGS: LUNGS AND PLEURA: Slightly improved appearance of a right-sided pleural effusion. A tiny left-sided pleural effusion is noted on today's examination. Otherwise stable pulmonary exam with co mpressive atelectasis of the right lung base. No pneumothorax. MEDIASTINUM AND HILAR STRUCTURES: No masses or contour abnormalities. HEART AND VASCULAR STRUCTURES: Heart normal size. No evidence for failure. BONES: No acute findings. HARDWARE: Stable appearance of a right hemithorax chest tube OTHER: Subcutaneous emphysema is not an unexpected finding in the setting of chest tube placement. IMPRESSION: Slightly improved appearance of a right-sided pleural effusion. Stable position and trae earance of a right hemithorax chest tube. TECHNICAL DOCUMENTATION: JOB ID: [id number] 2010 [employer]- All Rights Reserved Reading location - IP/workstation name: [email or web address]
[2019-10-18] MEDS: SULFAMETHOXAZOLE/TRIMETHOPRIM 800-160 MG TABLET PO SCH (10:58)
--- NOTE | 2019-10-18 12:32 | PDOC PROGRESS REPORT ---
Subjective Progress Note for:: 10/18/19 Subjective:: HAYLEE MORELAND is a 29 year old male ESRD due to untreated hypertension, S/P live donor renal transplant 4 years ago, hypertension, seizures, who was recently discharged from [facility] after being admitted for right-sided pleural effusion. Patient had a right-sided thoracentesis and 900 cc fluid was removed, fluid analysis showed exudative pleural effusion, pleural fluid cultures returned back negative and cytology was negative for any malignancy patient was discharged home on levofloxacin 750 mg p.o. daily for another 7 days. Patient is presented to ED today after being called by his city auditor to report to ED as his right-sided pleural effusion had not improved. Patient is complaining of right-sided pleuritic chest pain sharp, 7/10 on severity scale, worse with breathing and movement, associated with shortness of breath. Denies any fever, headache, chills, nausea, vomiting, diarrhea, constipation, weight changes, orthopnea, paroxysmal nocturnal dyspnea or any urinary symptoms. In ED he was noted to have worsening leukocytosis, chest x-ray showed worsening right-sided pleural effusion hyperkalemia and EMA. Hospitalist was consulted for admission. 10/16/2019. No acute events overnight. Status post right-sided chest tube placement, patient complaining of pain at the site of chest tube placement, could not get a good night sleep due to right-sided chest pain, sitting up in apparent use, denies any fever, chills, nausea, vomiting, diarrhea, constipation or any urinary symptoms. 10/17/2019. No acute events overnight. Sitting in chair in no apparent distress, still complaining of right-sided chest pain. P.o. tolerant. Denies any fever, chills, nausea, vomiting. 10/18/2019. No acute events overnight. Mild improvement of right-sided pleural effusion based on new chest x-ray, patient still complaining of right-sided chest pain, denies any fever, chills, nausea, vomiting, diarrhea, constipation or any urinary symptoms. Reason For Visit: PLEURAL EFFUSION, CHEST PAIN Physical Exam Vital Signs: Temp Pulse Resp BP Pulse Ox 97.8 F 62 16 139/80 H 98 10/18/19 04:29 10/18/19 08:40 10/18/19 08:40 10/18/19 04:29 10/18/19 08:40 Intake & Output 10/17/19 10/18/19 10/19/19 06:59 06:59 06:59 Intake Total 1384 4546 Output Total 4143 2829 Balance -5341 3307 Weight 78 kg 76.5 kg General appearance: PRESENT: no acute distress, well-developed, well-nourished Head exam: PRESENT: atraumatic, normocephalic Respiratory exam: PRESENT: chest wall tenderness - Right-sided. At this chest tube placement site., crackles, other - Chest tube in place. Draining serosanguineous fluid. Tenderness over chest tube placement site, no crepitation.. ABSENT: rales, rhonchi, wheezes GI/Abdominal exam: PRESENT: normal bowel sounds, soft. ABSENT: distended, guarding, mass, organolmegaly, rebound, tenderness Neurological exam: PRESENT: alert, awake, oriented to person, oriented to place, oriented to time, oriented to situation, CN II-XII grossly intact. ABSENT: motor sensory deficit Results Laboratory Results: 10/18/19 05:33 10/18/19 05:33 10/18/19 10/18/19 05:33 05:33 WBC 5.7 RBC 4.47 Hgb 13.4 L Hct 39.0 MCV 87 MCH 30.1 MCHC 34.4 RDW 12.4 Plt Count 230 Sodium 132.6 L Potassium 5.2 H Chloride 113 H Carbon Dioxide 19 L Anion Gap 1 L BUN 25 H Creatinine 1.07 Est GFR ( Amer) > 60 Glucose 85 Calcium 9.8 Total Bilirubin 0.6 AST 77 H Alkaline Phosphatase 229 H Total Protein 4.8 L Albumin 2.2 L 10/12/19 16:21 Blood Blood Culture - Final NO GROWTH IN 5 DAYS 10/12/19 15:46 Blood Blood Culture - Final NO GROWTH IN 5 DAYS Impressions: Abdomen Ultrasound 10/12/19 00:00 IMPRESSION: No gallstones, gallbladder wall thickening or pericholecystic fluid Antegrade portal venous flow. Grossly normal liver echotexture Right lower quadrant transplant kidney normal blood flow. No hydronephrosis. Thoracentesis Ultrasound 10/12/19 01:06 IMPRESSION: SUCCESSFUL THORACENTESIS USING ULTRASOUND GUIDANCE. Abdomen/Pelvis CT 10/16/19 13:39 IMPRESSION: Loculated pleural effusion at the right posterior lower hemithorax with air-fluid levels. Persistent right lower lobe collapse and consolidation Enlarged right lower quadrant transplant kidney with cortical thickening. Consider follow-up transplant kidney Doppler to evaluate for signs of rejection. Correlate clinically for pyelonephritis causing transplant kidney swelling Chest X-Ray 10/18/19 07:00 IMPRESSION: Slightly improved appearance of a right-sided pleural effusion. Stable position and appearance of a right hemithorax chest tube. Assessment and Plan - Diagnosis (1) Recurrent pleural effusion on right Is this a current diagnosis for this admission?: Yes Plan: Mild improvement based on repeat CXR. Likely infectious process secondary to parapneumonic effusion. Status post thoracentesis 10/02/2019, 900 cc removed. Status post thoracentesis 10/12/2019 260 cc removed. Low yield due to septations noted on ultrasound as per radiology. Status post chest tube placement 10/15/2019. Fluid analysis is consistent with uncomplicated parapneumonic effusion given patient is immunosuppressed and status post renal transplant malignancy is also a possibility. Unfortunately, it seems that though cytology was ordered, no cytology was sent and order was somehow discontinued. Pleural fluid resent for cytology. Gram stain and culture negative. Pulmonology consulted. No renal recommendations. (2) Pneumonia Qualifiers: Pneumonia type: due to unspecified organism Laterality: right Lung location: lower lobe of lung Qualified Code(s): J18.9 - Pneumonia, unspecified organism Is this a current diagnosis for this admission?: Yes Plan: Likely unresolved pneumonia from previous hospitalization complicated by parapneumonic effusion. Blood cultures currently negative Empiric broad-spectrum IV antibiotics with linezolid and cefepime. Leukocytosis seems to have resolved now. 10/18/2019. Started on Bactrim for PCP prophylaxis as patient is renal transplant and is chronically immunocompromised. PCP smear pending. Infectious disease specialist consulted. (3) Acute kidney injury superimposed on CKD Is this a current diagnosis for this admission?: Yes Plan: Resolved. Electrolytes WNL. Creatinine WNL. Likely prerenal, history of lifelong renal transplant x4 years. Monitor electrolytes and replace as needed. Avoid nephrotoxic meds. (4) Hyperkalemia Is this a current diagnosis for this admission?: Yes Plan: Persistent hypercalcemia. No acute EKG change. P.o. Kayexalate. BMP tomorrow. Low potassium diet. (5) Renal transplant recipient Is this a current diagnosis for this admission?: Yes Plan: History of left lower renal transplant x4 years. On steroids, mycophenolate mofetil and tacrolimus. (6) Chest pain, pleuritic Is this a current diagnosis for this admission?: Yes Plan: Pleuritic-type chest pain. Unlikely cardiac in origin. Likely due to right- sided pleural effusion/pneumonia. Pain control as needed. (7) History of hepatitis C virus infection Is this a current diagnosis for this admission?: Yes Plan: History of hep C infection. Pending genotype. (8) Hyponatremia Is this a current diagnosis for this admission?: Yes Plan: Improving. Euvolemic hypoosmolar hyponatremia. Urine sodium is quite low making SIADH very unlikely. Note patient is on Keppra which caused her hyponatremia as well as tacrolimus. Pending tacrolimus level. A.m. cortisol yesterday was borderline low but patient had very normal response to cosyntropin test making primary adrenal insufficiency very unlikely. Possibly it is secondary to hypoaldosteronism. Sodium seems to be stable around 128-131 during this admission and prior hospitalization. Nephrology consulted. Recommendations noted. 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
--- NOTE | 2019-10-18 12:52 | PDOC PROGRESS REPORT ---
Subjective Progress Note for:: 10/18/19 Subjective:: No complaints other than pain at the chest tube insertion site. Reason For Visit: PLEURAL EFFUSION, CHEST PAIN Physical Exam Vital Signs: Temp Pulse Resp BP Pulse Ox 97.8 F 62 16 139/80 H 98 10/18/19 04:29 10/18/19 08:40 10/18/19 08:40 10/18/19 04:29 10/18/19 08:40 Intake & Output 10/17/19 10/18/19 10/19/19 06:59 06:59 06:59 Intake Total 1384 4546 Output Total 4145 5309 Balance -7201 6807 Weight 78 kg 76.5 kg General appearance: PRESENT: no acute distress, cooperative Respiratory exam: PRESENT: other - Right-sided chest tube in place. Diminished breath sounds at the right base. No air leak. Chest tube drainage has been minimal overnight. Drainage has been serosanguineous. Cardiovascular exam: PRESENT: RRR Results Laboratory Results: 10/18/19 05:33 10/18/19 05:33 10/18/19 10/18/19 05:33 05:33 WBC 5.7 RBC 4.47 Hgb 13.4 L Hct 39.0 MCV 87 MCH 30.1 MCHC 34.4 RDW 12.4 Plt Count 230 Sodium 132.6 L Potassium 5.2 H Chloride 113 H Carbon Dioxide 19 L Anion Gap 1 L BUN 25 H Creatinine 1.07 Est GFR ( Amer) > 60 Glucose 85 Calcium 9.8 Total Bilirubin 0.6 AST 77 H Alkaline Phosphatase 229 H Total Protein 4.8 L Albumin 2.2 L 10/12/19 16:21 Blood Blood Culture - Final NO GROWTH IN 5 DAYS 10/12/19 15:46 Blood Blood Culture - Final NO GROWTH IN 5 DAYS Impressions: Abdomen Ultrasound 10/12/19 00:00 IMPRESSION: No gallstones, gallbladder wall thickening or pericholecystic fluid Antegrade portal venous flow. Grossly normal liver echotexture Right lower quadrant transplant kidney normal blood flow. No hydronephrosis. Thoracentesis Ultrasound 10/12/19 01:06 IMPRESSION: SUCCESSFUL THORACENTESIS USING ULTRASOUND GUIDANCE. Abdomen/Pelvis CT 10/16/19 13:39 IMPRESSION: Loculated pleural effusion at the right posterior lower hemithorax with air-fluid levels. Persistent right lower lobe collapse and consolidation Enlarged right lower quadrant transplant kidney with cortical thickening. Consider follow-up transplant kidney Doppler to evaluate for signs of rejection. Correlate clinically for pyelonephritis causing transplant kidney swelling Chest X-Ray 10/18/19 07:00 IMPRESSION: Slightly improved appearance of a right-sided pleural effusion. Stable position and appearance of a right hemithorax chest tube. Assessment & Plan - Diagnosis (1) Pleural effusion, right Is this a current diagnosis for this admission?: Yes Plan: Has improved but the chest tube now is putting out minimal amounts of serosanguineous fluid and I do not think chest tube is doing much good at this point. Chest tube was removed. Patient tolerated procedure well. Portable chest x-ray was ordered.
--- NOTE | 2019-10-18 13:56 | RADIOLOGY REPORT (SQ) ---
EXAM DESCRIPTION: CHEST SINGLE VIEW IMAGES COMPLETED DATE/TIME: 10/18/2019 1:42 pm REASON FOR STUDY: s/p ct pull COMPARISON: 10/18/2019 EXAM PARAMETERS: NUMBER OF VIEWS: One view. TECHNIQUE: Single frontal radiographic view of the chest acquired. RADIATION DOSE: NA LIMITATIONS: None. FINDINGS: LUNGS AND PLEURA: Stable to slightly improved appearance of right pulmonary effusion with compressive atelectasis of the adjacent pulmonary parenchyma. Diminished left-sided pleural effusion . No pneumothorax. MEDIASTINUM AND HILAR STRUCTURES: No masses. Contour normal. HEART AND VASCULAR STRUCTURES: Heart normal in size. Normal vasculature. BONES: No acute findings. HARDWARE: Interval removal of a right hemithorax chest tube. OTHER: No other significant finding. IMPRESSION: Interval removal of the right hemithorax chest tube. No pneumothorax. Stable to slight ly improved appearance of right-sided pleural effusion. Diminished left-sided pleural effusion. TECHNICAL DOCUMENTATION: JOB ID: [id number] 2010 [employer]- All Rights Reserved Reading location - IP/workstation name: [email or web address]
--- NOTE | 2019-10-18 14:35 | PDOC PROGRESS REPORT ---
Subjective Progress Note for:: 10/18/19 Subjective:: Patient was seen sitting up in bed at the time of examination. He claims to be feeling better. Still has the chest tube and the pain from the tube. Continues to have great urine output. No SOB, N/V. Reason For Visit: PLEURAL EFFUSION, CHEST PAIN Physical Exam Vital Signs: Temp Pulse Resp BP Pulse Ox 97.8 F 62 16 139/80 H 98 10/18/19 04:29 10/18/19 08:40 10/18/19 08:40 10/18/19 04:29 10/18/19 08:40 Intake & Output 10/17/19 10/18/19 10/19/19 06:59 06:59 06:59 Intake Total 1384 4546 Output Total 4145 2829 Balance -2761 1717 Weight 78 kg 76.5 kg General appearance: PRESENT: no acute distress, well-developed, well-nourished Mouth exam: PRESENT: moist, neck supple Neck exam: ABSENT: JVD, tracheal deviation Respiratory exam: PRESENT: clear to auscultation margaret. ABSENT: crackles, rales, rhonchi, wheezes Cardiovascular exam: PRESENT: +S1, +S2 GI/Abdominal exam: PRESENT: soft. ABSENT: ascites, distended, tenderness Extremities exam: ABSENT: pedal edema, +1 edema, +2 edema Neurological exam: PRESENT: alert, awake, oriented to person, oriented to place, oriented to time, oriented to situation Psychiatric exam: PRESENT: appropriate affect, normal mood Skin exam: PRESENT: dry, intact, warm. ABSENT: cyanosis Results Laboratory Results: 10/18/19 05:33 10/18/19 05:33 10/18/19 10/18/19 05:33 05:33 WBC 5.7 RBC 4.47 Hgb 13.4 L Hct 39.0 MCV 87 MCH 30.1 MCHC 34.4 RDW 12.4 Plt Count 230 Sodium 132.6 L Potassium 5.2 H Chloride 113 H Carbon Dioxide 19 L Anion Gap 1 L BUN 25 H Creatinine 1.07 Est GFR ( Amer) > 60 Glucose 85 Calcium 9.8 Total Bilirubin 0.6 AST 77 H Alkaline Phosphatase 229 H Total Protein 4.8 L Albumin 2.2 L 10/12/19 16:21 Blood Blood Culture - Final NO GROWTH IN 5 DAYS 10/12/19 15:46 Blood Blood Culture - Final NO GROWTH IN 5 DAYS Impressions: Abdomen Ultrasound 10/12/19 00:00 IMPRESSION: No gallstones, gallbladder wall thickening or pericholecystic fluid Antegrade portal venous flow. Grossly normal liver echotexture Right lower quadrant transplant kidney normal blood flow. No hydronephrosis. Thoracentesis Ultrasound 10/12/19 01:06 IMPRESSION: SUCCESSFUL THORACENTESIS USING ULTRASOUND GUIDANCE. Abdomen/Pelvis CT 10/16/19 13:39 IMPRESSION: Loculated pleural effusion at the right posterior lower hemithorax with air-fluid levels. Persistent right lower lobe collapse and consolidation Enlarged right lower quadrant transplant kidney with cortical thickening. Consider follow-up transplant kidney Doppler to evaluate for signs of rejection. Correlate clinically for pyelonephritis causing transplant kidney swelling Chest X-Ray 10/18/19 07:00 IMPRESSION: Slightly improved appearance of a right-sided pleural effusion. Stable position and appearance of a right hemithorax chest tube. Assessment & Plan - Diagnosis (1) Hyponatremia Is this a current diagnosis for this admission?: Yes Plan: Sodium stable, will continue fluid restriction but stop normal saline. Waiting on tac levels (2) Metabolic acidosis, normal anion gap (NAG) Is this a current diagnosis for this admission?: Yes Plan: improving on sodium bicarb 650mg bid (3) Pneumonia Qualifiers: Pneumonia type: due to unspecified organism Laterality: right Lung location: lower lobe of lung Qualified Code(s): J18.9 - Pneumonia, unspecified organism Is this a current diagnosis for this admission?: Yes Plan: With him being on immunosuppressing medication, treating for Pneumocystis pneumonia on bactrim. (4) EMA (acute kidney injury) Is this a current diagnosis for this admission?: Yes Plan: resolved (5) Hyperkalemia Is this a current diagnosis for this admission?: Yes Plan: With increase in bicarb, there should be a potassium shift. Patient needs his potassium restricted in his diet for now. (6) assisted systemic steroid user Is this a current diagnosis for this admission?: Yes (7) Recurrent pleural effusion on right Is this a current diagnosis for this admission?: Yes Plan: currently has a chest tube in place, has a CT to follow up on possible cause. treating for Pneumocystis pneumonia and placed on bactrim. (8) Renal transplant recipient Is this a current diagnosis for this admission?: Yes Plan: on transplant rejection meds, due to elevated liver enzymes decreasing mycophenolate to 500mg BID from 1000mg bid (9) Hypertension Qualifiers: Hypertension type: essential hypertension Qualified Code(s): I10 - Essential (primary) hypertension Is this a current diagnosis for this admission?: Yes Plan: improving as pain resolves (10) Seizure disorder Is this a current diagnosis for this admission?: Yes (11) History of hepatitis C virus infection Is this a current diagnosis for this admission?: Yes (12) Elevated liver enzymes Plan: decreasing mycophenolate to 500mg bid. Awaiting hep c results.
[2019-10-19] MEDS: MORPHINE SULFATE 10 MG/ML INJ IV PRN (01:52)
[2019-10-19] MEDS: HEPARIN SOD (PORCINE) 5,000 UNIT/ML 1 ML VIAL SUBCUT SCH (05:19)
[2019-10-19 06:01] LABS: APPEARANCE,URINE CLEAR; BILIRUBIN,URINE NEGATIVE (NEGATIVE); COLOR,URINE STRAW; GLUCOSE, URINE NEGATIVE (NEGATIVE); KETONES,URINE NEGATIVE (NEGATIVE); LEUKOCYTE ESTERASE,URINE NEGATIVE (NEGATIVE); NITRITE,URINE NEGATIVE (NEGATIVE); PROTEIN,URINE 100 mg/dL (NEGATIVE); URINE SPECIFIC GRAVITY 1.008; UROBILINOGEN,URINE NEGATIVE mg/dL (<2.0)
[2019-10-19 06:47] LABS: BLOOD UREA NITROGEN 26 mg/dL (7-20); CALCIUM 9.9 mg/dL (8.4-10.2); CHLORIDE 114 mmol/L (98-107); GLUCOSE 81 mg/dL (75-110); POTASSIUM 4.9 mmol/L (3.6-5.0)
[2019-10-19 06:52] LABS: ANION GAP 1 (5-19); CARBON DIOXIDE 19 mmol/L (22-30)
--- NOTE | 2019-10-19 07:46 | Progress Note ---
Provider Note Provider Note: [facility] Telephone Advice Consultation Chart reviewed. Patient is 29-year-old man with history of ESRD s/p renal t ransplant 4 years ago currently on immunosuppression including mycophenoplate, tacrolimus and prednisone. He also has hypertension and seizures. Patient was recently admitted in September 30 due to right chest pain. He was found with a moderate pleural effusion and atelectasis/pnemumonia. He had thoracentesis at that time with removal of 900 mL of fluid. Pleural fluid at that time had WBC 5,133 with 73% N, RBC 10,911, LDH 462. It was considered exudative and patient received levofloxacin for 7-10 days. Pleural fluid cultures including aerobic/anaerobic, fungal and AFB were all negative. Cytology was negative for malignancy. He had follow up with semi truck driver. New imaging demonstrated re currence of pleural effusion. He was readmitted on 10/10. He continued having right chest pain. He was found with leukocytosis and moderate right pleural effusion. On 10/11 he had thoracentesis, but only 260 mL of fluid were removed. Surgery service was consulted and he had a chest tube placed on 10/14. Another 250 mL were drained at that time. All cultures remain negative in 48 hr. Patient is afebrile, HD stable, leukocytosis has resolved and chest tube was removed. He has been on cefepime and linezolid for 7 days. ID consulted for recommendations. PMH: ESRD s/p Kidney transplant 4 years ago Hypertension Seizure Disorder Allergies: No Known Allergies Allergy (Verified 10/11/19 17:35) Medications: Mycophenolate Sodium [Myfortic 180 mg Tablet.] 720 mg PO BID 08/09/17 Tacrolimus [Prograf] 2 mg PO Q12 08/09/17 Prednisone 10 mg PO DAILY 10/20/18 Amlodipine Besylate [Norvasc 5 mg Tablet] 5 mg PO DAILY 10/01/19 Carvedilol [Coreg 6.25 mg Tablet] 6.25 mg PO Q12 10/01/19 Lisinopril [Prinivil 5 mg Tablet] 5 mg PO DAILY 10/01/19 Vital Signs: Temp Pulse Resp BP Pulse Ox 97.8 F 66 20 144/89 H 98 10/19/19 04:23 10/19/19 04:23 10/19/19 04:23 10/19/19 04:23 10/19/19 04:23 Intake & Output 10/18/19 10/19/19 10/20/19 06:59 06:59 06:59 Intake Total 4546 1430 Output Total 2829 1080 600 Balance 1717 350 -600 Weight 76.5 kg 75 kg Weight/Height Weight 75 kg Height 6 ft 2 in Laboratories: 10/18/19 05:33 10/19/19 05:50 MCV 87 fl (80-97) 10/18/19 05:33 MCH 30.1 pg (27.0-33.4) 10/18/19 05:33 MCHC 34.4 g/dL (32.0-36.0) 10/18/19 05:33 RDW 12.4 % (11.5-14.0) 10/18/19 05:33 Seg Neutrophils % 85.0 % (42-78) H 10/16/19 06:30 VBG pH 7.34 (7.30-7.42) 10/12/19 17:36 VBG pCO2 32.3 mmHg (35-63) L 10/12/19 17:36 VBG HCO3 17.0 mmol/L (20-32) L 10/12/19 17:36 VBG Base Excess -7.5 mmol/L 10/12/19 17:36 Chloride 114 mmol/L (98-107) H 10/19/19 05:50 Carbon Dioxide 19 mmol/L (22-30) L 10/19/19 05:50 Anion Gap 1 (5-19) L 10/19/19 05:50 Est GFR ( Amer) > 60 (>60) 10/19/19 05:50 Glucose 81 mg/dL (75-110) 10/19/19 05:50 Serum Osmolality 271 mOsm/kg (275-301) L 10/14/19 05:09 Lactic Acid 0.8 mmol/L (0.7-2.1) 10/11/19 17:45 Calcium 9.9 mg/dL (8.4-10.2) 10/19/19 05:50 Phosphorus 3.3 mg/dL (2.5-4.5) 10/14/19 05:09 Magnesium 1.7 mg/dL (1.6-2.3) 10/15/19 07:31 Total Bilirubin 0.6 mg/dL (0.2-1.3) 10/18/19 05:33 AST 77 U/L (17-59) H 10/18/19 05:33 Alkaline Phosphatase 229 U/L (38-126) H 10/18/19 05:33 Total Protein 4.8 g/dL (6.3-8.2) L 10/18/19 05:33 Albumin 2.2 g/dL (3.5-5.0) L 10/18/19 05:33 Urine Color STRAW 10/19/19 05:25 Urine Appearance CLEAR 10/19/19 05:25 Urine pH 7.0 (5.0-9.0) 10/19/19 05:25 Ur Specific Raymond 1.008 10/19/19 05:25 Urine Protein 100 mg/dL (NEGATIVE) H 10/19/19 05:25 Urine Glucose (UA) NEGATIVE mg/dL (NEGATIVE) 10/19/19 05:25 Urine Ketones NEGATIVE mg/dL (NEGATIVE) 10/19/19 05:25 Urine Blood NEGATIVE (NEGATIVE) 10/19/19 05:25 Urine Nitrite NEGATIVE (NEGATIVE) 10/19/19 05:25 Ur Leukocyte Esterase NEGATIVE (NEGATIVE) 10/19/19 05:25 Urine WBC (Auto) 0 /HPF 10/19/19 05:25 Urine RBC (Auto) 0 /HPF 10/19/19 05:25 Urine Osmolality 198 mOsm/kg (300-900) L 10/14/19 15:43 Fluid Type PLEURAL 10/12/19 11:45 Fluid Source LUNG 10/12/19 11:45 Fluid Color ANNEMARIE 10/12/19 11:45 Fluid Appearance HAZY 10/12/19 11:45 Fluid Viscosity LIQUID 10/12/19 11:45 Fluid pH 7.2 (Not Estab.) 10/12/19 11:45 Fluid WBC 161 /uL 10/12/19 11:45 Fluid RBC 3110 /uL 10/12/19 11:45 Fluid Glucose 72 mg/dL (.) 10/12/19 11:45 Fluid Total Protein 3.1 g/dL (.) 10/12/19 11:45 Fluid Albumin 1.8 g/dL (Not Estab.) 10/12/19 11:45 Fluid LDH 205 IU/L (.) 10/12/19 11:45 Fluid Amylase 40 U/L (.) 10/12/19 11:45 Microbiology: Blood culture: 09/30 Negative 10/10 Negative Pleural fluid culture: 10/01 Fungal, AFB, anaerobic/aerobic negative 10/11 In process, all smears negative and Gram stain negative Radiology: Abdomen Ultrasound 10/12/19 00:00 IMPRESSION: No gallstones, gallbladder wall thickening or pericholecystic fluid Antegrade portal venous flow. Grossly normal liver echotexture Right lower quadrant transplant kidney normal blood flow. No hydronephrosis. Thoracentesis Ultrasound 10/12/19 01:06 IMPRESSION: SUCCESSFUL THORACENTESIS USING ULTRASOUND GUIDANCE. Abdomen/Pelvis CT 10/16/19 13:39 IMPRESSION: Loculated pleural effusion at the right posterior lower hemithorax with air-fluid levels. Persistent right lower lobe collapse and consolidation Enlarged right lower quadrant transplant kidney with cortical thickening. Consider follow-up transplant kidney Doppler to evaluate for signs of rejection. Correlate clinically for pyelonephritis causing transplant kidney swelling Chest X-Ray 10/18/19 07:00 IMPRESSION: Slightly improved appearance of a right-sided pleural effusion. Stable position and appearance of a right hemithorax chest tube. Assessment and Recommendations: Patient evaluated due to right pleural effusion of unknown etiology. It was exudative therefore infection was in the differential considering his immunocompromised status. He has had thoracentesis x 2 and ultimately chest tube with drainage of the fluid. All cultures remain negative to date. Cytology was negative as well. In some cases it is diffuclt to identify the etiology of the effusion. Some organisms are more challenging to grow on cultures. Considering his immunocompromised status there are some atypical infections like Nocardia spp that can cause pneumonia and can affect the adrenal glands as well (he had hyponatremia and hyperkalemia). TB (although not lymphocytic predominance and ADA was normal), can still consider a Quantiferon Gold (the Gold standard would be pleural biopsy to look fo granulomas if thinking of pleural TB). Histoplasmosis is a fungal infection that can occur in immunocompromised patients that can affect the lungs and adrenal glands. Can consider urine Histoplasma antigen. PJP can also cause pleural effusion, pathology pending. Cryptococcus is also in the differential due to immunosuppression, but all cultures were negative. Cryptococcus serum antigen could be done. Nontuberculous Mycobacteria can cause similar picture, however cultures are still negative. Legionella spp as well and are difficult to culture. Can consider urine antigen. There has been source control with chest tube placement. Ideally, could consider a bronchoscopy to obtain a BAL for culture, but unclear if this is doable at this time. If all cultures are negative, can consider empiric therapy with augmentin 500/125 mg tid for 14 days when ready to go home. These cases tend to be challenging and occasionally the etiology remains unknown. Please call if questions. Phoebe Pierre MD [facility] [phone]
[2019-10-19] MEDS: IPRATROPIUM/ALBUTEROL 0.5-2.5 MG/3 ML AMPUL NEB SCH (08:51)
[2019-10-19] MEDS ORDERED: IPRATROPIUM/ALBUTEROL 0.5-2.5 MG/3 ML AMPUL NEB PRN (09:41)
--- NOTE | 2019-10-19 10:09 | RADIOLOGY REPORT (SQ) ---
EXAM DESCRIPTION: CT CHEST WITHOUT IMAGES COMPLETED DATE/TIME: 10/19/2019 9:01 am REASON FOR STUDY: pleural effusion reassess COMPARISON: CT of the chest with contrast from 10/01/2019. TECHNIQUE: CT scan performed of the chest without intravenous contrast. Images reviewed with lung, soft tissue and bone windows. Reconstructed coronal and sagittal MPR images reviewed. All images st ored on PACS. All CT scanners at this facility use dose modulation, iterative reconstruction, and/or weight based d osing when appropriate to reduce radiation dose to as low as reasonably achievable (ALARA). [facility]: Dose Right [facility]: CareDose [facility]: Dose Right [facility]: Teradose 4D [facility]: Smart PlanetHS RADIATION DOSE: CT Rad equipment meets quality standard of care and radiation dose reduction techniq ues were employed. CTDIvol: 7.6 mGy. DLP: 343 mGy-cm. LIMITATIONS: No technical limitations. FINDINGS: LUNGS AND PLEURA: Unchanged biapical subpleural breath. The trachea and main bronchi are patent. There is a complex right pleural effusion that contains numerous loculated pockets of air ; compared to the CT from 10/01/2019 the amount of fluid in the pleural space has decreased and the aera tion of the right middle and right lower lobes has improved. The residual areas of consolidation wit h air bronchograms in the right lower lobe are nonspecific and could represent atelectasis or a pneum onia. The nodular opacity in the aerated portion of the right lower lobe (image 100 of series 4) is nonspecific and could be part of the adjacent consolidation. HILAR AND MEDIASTINAL STRUCTURES: Evaluation of the connie for adenopathy is limited due to the absence of intravenous contrast. There is no mediastinal adenopathy or mass. HEART AND VASCULAR STRUCTURES: Mild atherosclerotic calcification of the coronary arteries and border line cardiomegaly. There is no thoracic aortic aneurysm. UPPER ABDOMEN: Advanced renal atrophy and splenomegaly. THYROID AND OTHER SOFT TISSUES: Subcutaneous emphysema in the lateral aspect of the right hemithorax that extends up to the axilla. BONES: Limbus vertebra at L1. There is no acute fracture or osseous lesion. HARDWARE: None in the chest. OTHER: No other findings. IMPRESSION: Complex right pleural effusion that contains numerous loculated pockets of air ; compare d to the CT from 10/01/2019 the amount of fluid in the pleural space has decreased and the aeration of the right middle and right lower lobes has improved. The residual areas of consolidation with air b ronchograms in the right lower lobe are nonspecific and could represent atelectasis or a pneumonia. The nodular opacity in the aerated portion of the right lower lobe (image 100 of series 4) is nonspec ific and could be part of the adjacent consolidation. TECHNICAL DOCUMENTATION: JOB ID: [id number] Quality ID # [id number]: Final reports with documentation of one or more dose reduction techniques (e.g., Au tomated exposure control, adjustment of the mA and/or kV according to patient size, use of iterative reconstruction technique) 2010 [employer]- All Rights Reserved Reading location - IP/workstation name: [email or web address]
[2019-10-19] MEDS: MYCOPHENOLATE MOFETIL 250 MG CAPSULE PO SCH (10:13)
[2019-10-19] MEDS: LIDOCAINE 5% (700 MG) TRANSDERMAL ADH..PATCH TP SCH (10:13)
[2019-10-19] MEDS: SULFAMETHOXAZOLE/TRIMETHOPRIM 800-160 MG TABLET PO SCH (10:14)
[2019-10-19] MEDS: SODIUM BICARBONATE 650 MG TABLET PO SCH (10:14)
[2019-10-19] MEDS: CARVEDILOL 6.25 MG TABLET PO SCH (10:14)
[2019-10-19] MEDS: LEVETIRACETAM 500 MG TABLET PO SCH (10:14)
[2019-10-19] MEDS: FAMOTIDINE 20 MG TABLET PO SCH (10:14)
[2019-10-19] MEDS: AMLODIPINE BESYLATE 5 MG TABLET PO SCH (10:14)
[2019-10-19] MEDS: DOCUSATE SODIUM 100 MG CAPSULE PO SCH (10:14)
[2019-10-19] MEDS: PREDNISONE 10 MG TABLET PO SCH (10:15)
[2019-10-19 12:23] VITALS: BP 148/83
[2019-10-19 12:46] LABS: OSMOLALITY,URINE 315 mOsm/kg (300-900)
[2019-10-19 12:58] LABS: URINE SODIUM 91 mmol/L (30-90)
[2019-10-19 13:00] LABS: UR PRO/CREAT RATIO RESULT 1.8 mg/mg (0.0-0.2); URINE PROTEIN 65.1 mg/dL (<12)
--- NOTE | 2019-10-19 15:05 | PDOC PROGRESS REPORT ---
Subjective Progress Note for:: 10/19/19 Subjective:: Patient states that his breathing is better today during morning encounter. Chest pain is also improved. Reason For Visit: PLEURAL EFFUSION, CHEST PAIN Physical Exam Vital Signs: Temp Pulse Resp BP Pulse Ox 98.0 F 60 16 148/83 H 100 10/19/19 11:11 10/19/19 14:00 10/19/19 11:11 10/19/19 11:11 10/19/19 11:11 Intake & Output 10/18/19 10/19/19 10/20/19 06:59 06:59 06:59 Intake Total 4546 1430 982 Output Total 2829 1080 1125 Balance 1717 350 -143 Weight 76.5 kg 75 kg General appearance: PRESENT: no acute distress, cooperative Neck exam: ABSENT: JVD Respiratory exam: PRESENT: clear to auscultation margaret, unlabored. ABSENT: tachypnea, wheezes Cardiovascular exam: PRESENT: RRR, +S1, +S2. ABSENT: tachycardia GI/Abdominal exam: PRESENT: soft. ABSENT: rebound, rigid, tenderness Neurological exam: PRESENT: alert, awake, oriented to person, oriented to place, oriented to time Results Laboratory Results: 10/18/19 05:33 10/19/19 05:50 10/19/19 10/19/19 10/19/19 05:25 05:25 05:50 Sodium 133.8 L Potassium 4.9 Chloride 114 H Carbon Dioxide 19 L Anion Gap 1 L BUN 26 H Creatinine 1.15 Est GFR ( Amer) > 60 Glucose 81 Calcium 9.9 Urine Color STRAW Urine Appearance CLEAR Urine pH 7.0 Ur Specific [place] 1.008 Urine Protein 100 H Urine Glucose (UA) NEGATIVE Urine Ketones NEGATIVE Urine Blood NEGATIVE Urine Nitrite NEGATIVE Ur Leukocyte Esterase NEGATIVE Urine WBC (Auto) 0 Urine RBC (Auto) 0 Urine Osmolality 315 10/16/19 14:22 Sputum Gram Stain - Final 10/15/19 14:20 Pleural Fluid - Right Pleural Effusion Gram Stain - Final 10/15/19 14:20 Pleural Fluid - Right Pleural Effusion Body Fluid Culture - Final NO AEROBIC OR ANAEROBIC ORGANISMS RECOVERED Impressions: Abdomen Ultrasound 10/12/19 00:00 IMPRESSION: No gallstones, gallbladder wall thickening or pericholecystic fluid Antegrade portal venous flow. Grossly normal liver echotexture Right lower quadrant transplant kidney normal blood flow. No hydronephrosis. Thoracentesis Ultrasound 10/12/19 01:06 IMPRESSION: SUCCESSFUL THORACENTESIS USING ULTRASOUND GUIDANCE. Abdomen/Pelvis CT 10/16/19 13:39 IMPRESSION: Loculated pleural effusion at the right posterior lower hemithorax with air-fluid levels. Persistent right lower lobe collapse and consolidation Enlarged right lower quadrant transplant kidney with cortical thickening. Consider follow-up transplant kidney Doppler to evaluate for signs of rejection. Correlate clinically for pyelonephritis causing transplant kidney swelling Chest X-Ray 10/18/19 07:00 IMPRESSION: Slightly improved appearance of a right-sided pleural effusion. Stable position and appearance of a right hemithorax chest tube. Chest CT 10/19/19 00:00 IMPRESSION: Complex right pleural effusion that contains numerous loculated pockets of air ; compared to the CT from 10/01/2019 the amount of fluid in the pleural space has decreased and the aeration of the right middle and right lower lobes has improved. The residual areas of consolidation with air bronchograms in the right lower lobe are nonspecific and could represent atelectasis or a pneumonia. The nodular opacity in the aerated portion of the right lower lobe (image 100 of series 4) is nonspecific and could be part of the adjacent consol idation. Assessment and Plan - Diagnosis (1) Recurrent pleural effusion on right Is this a current diagnosis for this admission?: Yes Plan: Mild improvement based on repeat CXR. Likely infectious process secondary to complicated parapneumonic effusion. Status post thoracentesis 10/02/2019, 900 cc removed. Status post thoracentesis 10/12/2019 260 cc removed. Low yield due to septations noted on ultrasound as per radiology. Status post chest tube placement 10/15/2019. Chest tube was notably removed yesterday. I have repeated a chest CT today to reassess loculated effusion. Chest CT still shows several loculations of pleural effusion as well as mild lung atelectasis. Patient very well will likely need evaluation by CT surgery. (2) Pneumonia Qualifiers: Pneumonia type: due to unspecified organism Laterality: right Lung location: lower lobe of lung Qualified Code(s): J18.9 - Pneumonia, unspecified organism Is this a current diagnosis for this admission?: Yes Plan: Likely unresolved pneumonia from previous hospitalization complicated by parapneumonic effusion. Blood cultures currently negative Empiric broad-spectrum IV antibiotics with linezolid and cefepime. Leukocytosis seems to have resolved now. Bactrim was started yesterday. PCP smear pending. Infectious disease specialist consulted. (3) Hyponatremia Is this a current diagnosis for this admission?: Yes Plan: Stable at this point. (4) Metabolic acidosis, normal anion gap (NAG) Is this a current diagnosis for this admission?: Yes Plan: Noted on vbg. Bicarb is 19 today. Patient has hyperchloremic normal anion gap metabolic acidosis. Also noted to always present with hyperkalemia. Denies any diarrhea. 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 I have consulted nephrology for input to see if anything needs to be done. Nephrology has recommended sodium bicarbonate tablets (5) Hyperkalemia Is this a current diagnosis for this admission?: Yes Plan: Persistent hyperkalemia. No acute EKG change. Low potassium diet. BMP today showed normalization of potassium level. (6) Renal transplant recipient Is this a current diagnosis for this admission?: Yes (7) Chest pain, pleuritic Is this a current diagnosis for this admission?: Yes (8) EMA (acute kidney injury) Is this a current diagnosis for this admission?: Yes (9) snf systemic steroid user Is this a current diagnosis for this admission?: Yes (10) History of hepatitis C virus infection Is this a current diagnosis for this admission?: Yes - Time Time Spent with patient: 15-24 minutes
[2019-10-20] MEDS ORDERED: TACROLIMUS ANHYDROUS 1 MG CAPSULE PO SCH (22:00)
[2019-10-21 10:36] LABS: HEPATITIS C QUANTITATION See Final Results IU/mL (.)
[2019-10-21 10:36] LABS: HEPATITIS C QUANTITATION See Final Results IU/mL (.); HEPATITIS C RNA IU 32500000 IU/mL (.)
[2019-10-22 07:11] LABS: HEPATITIS C LOG 10 7.512 (.)
--- NOTE | 2019-10-24 13:49 | Left Against Medical Advice ---
Against Medical Advice Admission Date/Time: 10/12/19 00:36 Primary Care Provider: CHLOE MOSQUERA MD Date of Patient Emigration: 10/19/19 - Diagnosis: (1) Recurrent pleural effusion on right Is this a current diagnosis for this admission?: Yes (2) Pneumonia Is this a current diagnosis for this admission?: Yes (3) Hyponatremia Is this a current diagnosis for this admission?: Yes (4) Metabolic acidosis, normal anion gap (NAG) Is this a current diagnosis for this admission?: Yes (5) Hyperkalemia Is this a current diagnosis for this admission?: Yes (6) Renal transplant recipient Is this a current diagnosis for this admission?: Yes (7) Chest pain, pleuritic Is this a current diagnosis for this admission?: Yes (8) EMA (acute kidney injury) Is this a current diagnosis for this admission?: Yes (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 HAYLEE MORELAND is a 29 M, who LEFT AGAINST MEDICAL ADVICE. Patient was admitted to the hospital for evaluation of right pleural effusion. Chest imaging revealed significant amount of right pleural effusion. Patient also had leukocytosis. He was started on antibiotics for suspicion of pneumonia with adjacent parapneumonic effusion. Patient also noted to have hyperkalemic hyperchloremic non-anion gap metabolic acidosis accompanied by hyponatremia with suspicion for tacrolimus induced hypoaldosteronism. He was evaluated by nephrology who placed patient on sodium bicarbonate. Patient had thoracentesis done for his pleural effusion. Thoracentesis yielded fluid sample consistent with complicated parapneumonic effusion. Given that only small amounts of fluid was able to be drained due to septation noted on ultrasound, patient was taken for chest tube placement. Patient did drain a significant amount from the chest tube. After chest tube was exhausted, chest tube was pulled. Repeat chest CT showed significant loculated pleural effusions. Given this, plan was to transfer patient to a tertiary facility for CT surgery evaluation. However before I can set up the transfer, patient stated that he wanted to leave. I explained the risk of patient's leaving AGAINST MEDICAL ADVICE and patient understood. Patient ended up leaving AMA. The Patient was admitted on 10/12/19 00:36.
--- NOTE | 2019-10-25 08:44 | RADIOLOGY REPORT (SQ) ---
EXAM DESCRIPTION: GUIDANCE FLUOROSCOPIC IMAGES COMPLETED DATE/TIME: 10/19/2019 7:26 am REASON FOR STUDY: CHEST TUBE PLACEMENT COMPARISON: 10/13/2019. FLUOROSCOPY TIME: Less than 0.1 minutes. 8 images saved to PACS. TECHNIQUE: Intra-operative images acquired during surgical procedure to evaluate progress. NUMBER OF IMAGES: 8 images. LIMITATIONS: None. FINDINGS: Images of the chest acquired during the procedure. IMPRESSION: IMAGE(S) OBTAINED DURING PROCEDURE. COMMENT: Quality ID [id number]: Final reports for procedures using fluoroscopy that document radiation exp osure indices, or exposure time and number of fluorographic images (if radiation exposure indices are not available) Please consult full operative report of the attending physician for description of the procedure. TECHNICAL DOCUMENTATION: JOB ID: [id number] 2010 [employer]- All Rights Reserved Reading location - IP/workstation name: [email or web address]
== END 2019-10-19 14:59 | disposition other institution (70) | DRG 186 ==
LOC: ER 15:55 → EH 10-12 00:36 → 5 10-12 03:39 → 3W 10-14 15:54
PROVIDERS: ADMIT Internal Medicine; ATTEND Internal Medicine
PROC: 0W993ZX Drainage of Right Pleural Cavity, Percutaneous Approach, Diagnostic (ICD-10-PCS; principal; 2019-10-12)
PROC: 5A09457 Assistance with Respiratory Ventilation, 24-96 Consecutive Hours, Continuous Positive Airway Pressure (ICD-10-PCS; 2019-10-12)
PROC: 0W9930Z Drainage of Right Pleural Cavity with Drainage Device, Percutaneous Approach (ICD-10-PCS; 2019-10-15)
DX: J90 Pleural effusion, not elsewhere classified (principal); J18.9 Pneumonia, unspecified organism; Z94.0 Kidney transplant status; E87.1 Hypo-osmolality and hyponatremia; J44.0 Chronic obstructive pulmonary disease with (acute) lower respiratory infection; N17.9 Acute kidney failure, unspecified; E27.40 Unspecified adrenocortical insufficiency; E87.2 Acidosis; J91.8 Pleural effusion in other conditions classified elsewhere; N18.2 Chronic kidney disease, stage 2 (mild); I12.9 Hypertensive chronic kidney disease with stage 1 through stage 4 chronic kidney disease, or unspecified chronic kidney disease; G40.909 Epilepsy, unspecified, not intractable, without status epilepticus; E87.5 Hyperkalemia; R07.89 Other chest pain; F17.210 Nicotine dependence, cigarettes, uncomplicated; Z86.19 Personal history of other infectious and parasitic diseases; Z79.899 Other long term (current) drug therapy; Z82.49 Family history of ischemic heart disease and other diseases of the circulatory system; Z84.1 Family history of disorders of kidney and ureter; Z79.52 Long term (current) use of systemic steroids
CPT/HCPCS: 32555; 32557; 36415; 71045; 71046; 71250; 74176; 76705; 77001; 80048; 80053; 80197; 81001; 82024; 82042; 82150; 82533; 82570; 82803; 82945; 82962; 83605; 83615; 83735; 83930; 83935; 83986; 84100; 84133; 84155; 84156; 84157; 84300; 84311; 85025; 85027; 85610; 86317; 86704; 87015; 87040; 87070; 87075; 87101; 87116; 87205; 87206; 87252; 87340; 87522; 88305; 89050; 93005; 93010; 93976; 94640; 94660; 94799; 99285; J0610; J0692; J0834; J1644; J1815; J2020; J2270; J3010; J3490; J7030; J7507; J7512; J7517

== ENCOUNTER 2019-11-01 10:27 | Emergency (ER) | payer MEDICARE, MEDICAID ==
[2019-11-01] MEDS ORDERED: NORMAL SALINE 1000 ML 1,000 ML IV ONE (10:56)
--- NOTE | 2019-11-01 10:58 | ER Document Report ---
ED Medical Screen (RME) - General Chief Complaint: Probable Seizure Stated Complaint: SEIZURE Time Seen by Provider: 11/01/19 10:53 Primary Care Provider: CHLOE MOSQUERA MD [Primary Care Provider] - Follow up as needed Mode of Arrival: Wheelchair Information source: Patient, Relative Notes: 29-year-old male presents to ED for complaint of headaches for the last 3 to 4 days. Friend states that the headache is been every night and it would get better in the morning but last night it started before going to bed and is not gotten any better. She states when she came home at 1230 did his left arm was counter spasming and jerking. She states it jerked about 6-8 times. She asked him jorge-times that done not and he states at least 6 or 7 times. She states he does have a history of kidney transplant with seizures high blood pressure hep C and fluid on the lung. She states he has been here several times for the fluid on his lung and partial collapse of the lung. She states this is the first time she seen this local seizure type activity. I have greeted and performed a rapid initial assessment of this patient. A comprehensive ED assessment and evaluation of the patient, analysis of test results and completion of medical decision making process will be conducted by an additional ED providers. TRAVEL OUTSIDE OF THE [place] IN LAST 30 DAYS: No - Related Data Allergies/Adverse Reactions: No Known Allergies Allergy (Verified 10/11/19 17:35) Past Medical History - Past Medical History Cardiac Medical History: Reports: Hx Hypertension Neurological Medical History: Reports: Hx Seizures - last over 1 yr ago Renal/ Medical History: Reports: Hx End Stage Renal Disease. Denies: Hx Peritoneal Dialysis Psychiatric Medical History: Denies: Hx Depression Past Surgical History: Reports: Hx Kidney (Renal Surgery) - R transplant Physical Exam - Vital signs Vitals: Temp Pulse Resp BP Pulse Ox 99.2 F 65 19 148/96 H 99 11/01/19 10:32 11/01/19 10:32 11/01/19 10:32 11/01/19 10:32 11/01/19 10:32 Course - Vital Signs Vital signs: Temp Pulse Resp BP Pulse Ox 99.2 F 65 19 148/96 H 99 11/01/19 10:32 11/01/19 10:32 11/01/19 10:32 11/01/19 10:32 11/01/19 10:32 Doctor's Discharge - Discharge Referrals: CHLOE MOSQUERA MD [Primary Care Provider] - Follow up as needed
--- NOTE | 2019-11-01 11:07 | ER Document Report ---
ED General - General Chief Complaint: Headache Stated Complaint: SEIZURE Time Seen by Provider: 11/01/19 10:53 Primary Care Provider: CHLOE MOSQUERA MD [NO LOCAL MD] - Follow up as needed Mode of Arrival: Wheelchair Cannot obtain history due to: Unstable vital signs Notes: Patient presents with headache. Severe. Gradual onset 48 hours ago not worse with movement nonradiating. No neck pain or stiffness no fevers. Positive photophobia. History of migraines and seizures on Keppra no missed doses. Also has history of renal transplant on all immunosuppressive medications, no decreased urine output or graft site pain on the right lower quadrant. Partial seizure last night 57 times per the which consisted of right arm flailing. No LOC no urine soilage or tooth/tongue trauma. Compliant with all meds. Followed at [facility] for kidney transplant with full immunosuppression. Recently admitted here for pleural effusion. TRAVEL OUTSIDE OF THE [place] IN LAST 30 DAYS: No - Related Data Allergies/Adverse Reactions: No Known Allergies Allergy (Verified 10/11/19 17:35) Past Medical History - General Information source: Patient, Relative - Social History Smoking Status: Current Every Day Smoker Chew tobacco use (# tins/day): No Frequency of alcohol use: Occasional Drug Abuse: None Family History: Hypertension, Other - ESRD in several members of the family - Past Medical History Cardiac Medical History: Reports: Hx Hypertension Neurological Medical History: Reports: Hx Seizures - last over 1 yr ago Renal/ Medical History: Reports: Hx End Stage Renal Disease. Denies: Hx Peritoneal Dialysis Psychiatric Medical History: Denies: Hx Depression Past Surgical History: Reports: Hx Kidney (Renal Surgery) - R transplant Review of Systems - Review of Systems Notes: REVIEW OF SYSTEMS GEN: Denies fever, chills, weight loss ENT: Denies sore throat, nasal discharge, ear pain EYES: Denies blurry vision, eye pain, discharge CV: Denies chest pain, palpitations, edema RESP: Denies cough, shortness of breath, wheezing GI: Denies abdominal pain, nausea, vomiting, diarrhea MSK: Denies joint pain/swelling, edema, SKIN: Denies rash, skin lesions LYMPH: Denies swollen glands/lymph nodes NEURO: Possible seizure headache PSYCH: Denies depression, suicidal or homicidal ideation PHYSICAL EXAMINATION General: Warm to touch: Febrile? No acute distress, well-nourished Head: Atraumatic, normocephalic ENT: Mouth normal, oropharynx moist, no exudates or tonsillar enlargement Eyes: Conjunctiva normal, pupils equal, lids normal Neck: No JVD, supple, no guarding CVS: Normal rate, regular rhythm, no murmurs Resp: No resp distress, equal and normal breath sounds bilaterally GI: Nondistended, soft, no tenderness to palpation, no rebound or guarding Ext: Upper extremity fistula pulsatile with good thrill and bruit. Back: No CVA or midline TTP Skin: No rash, warm Lymphatic: No lymphadeopathy noted Neuro: Sleepy with eyes closed but does wake up and has a normal neuro exam with no tremor clonus or other findings. Physical Exam - Vital signs Vitals: Temp Pulse Resp BP Pulse Ox 99.2 F 65 19 148/96 H 99 11/01/19 10:32 11/01/19 10:32 11/01/19 10:32 11/01/19 10:32 11/01/19 10:32 Course - Re-evaluation Re-evalutation: 11/01/19 13:11 Recent onset headache with different seizures in the setting of known epilepsy and renal transplant with immunosuppression Neuro exam nonfocal initially. [place] warm but rectal times not febrile. Still could have meningitis Patient 11/01/19 13:11 11/01/19 14:41 Received call from radiology. Multifocal brain masses Differential is stroke mass or infection given immunocompromise. There is evidence of elevated intracranial pressure both clinically and on CT so I am ret icent to do a lumbar puncture. I discussed with [facility] neurosurgery who advised against LP. We discussed together I do not think this requires acute antibacterial agents because the patient may require biopsy or LP in the future. They agreed with Timothy Cheung and Ativan and careful observation This was done Mild hyponatremia otherwise labs are normal. Discussed differential including cancer and infection with patient and his On reassessment he is stable and sleeping He was arousable I do not suspect herniation or elevated ICP at this point Discussed hospitalist Dr. Morgan who accepted the patient approximately 1:30 PM. Agrees with plan as above. - Vital Signs Vital signs: Temp Pulse Resp BP Pulse Ox 99.2 F 65 14 153/87 H 96 11/01/19 10:32 11/01/19 10:32 11/01/19 11:08 11/01/19 11:08 11/01/19 11:08 - Laboratory Result Diagrams: 11/01/19 11:03 11/01/19 11:03 Laboratory results interpreted by me: 11/01/19 11/01/19 11:03 11:03 Seg Neuts % (Manual) 91 H Lymphocytes % (Manual) 1 L Abs Lymphs (Manual) 0.1 L Sodium 128.9 L Potassium 5.8 H Anion Gap 4 L Glucose 129 H ALT 52 H Alkaline Phosphatase 212 H Creatine Kinase 42 L Total Protein 5.6 L Albumin 2.9 L - Diagnostic Test Radiology reviewed: Image reviewed, Reports reviewed Critical Care Note - Critical Care Note Total time excluding time spent on procedures (mins): 32 Comments: The above patient is critically ill. Not including procedures, but including direct re-evaluations, speaking with patient and/or consultants, interpreting results, and documenting, I spent the total amount of minute listed listed above on critical care time Discharge - Discharge Clinical Impression: Mass, brain Condition: Fair Disposition: [facility] Referrals: CHOLE MOSQUERA MD [NO LOCAL MD] - Follow up as needed
[2019-11-01 11:18] LABS: HEMATOCRIT 40.7 % (37.9-51.0); MEAN CORPUSCULAR HGB CONC 34.3 g/dL (32.0-36.0); MEAN CORPUSCULAR VOLUME 87 fl (80-97); PLATELET COUNT 264 10^3/uL (150-450); RED BLOOD COUNT 4.66 10^6/uL (4.35-5.55); RED CELL DISTRIBUTION WIDTH 12.8 % (11.5-14.0); WHITE BLOOD COUNT 8.8 10^3/uL (4.0-10.5)
[2019-11-01 11:35] LABS: INTERNATIONAL RATION (INR) 0.86; PARTIAL THROMBOPLASTIN TIME 30.3 SEC (23.5-35.8); PROTHROMBIN TIME 11.7 SEC (11.4-15.4)
[2019-11-01 11:38] LABS: ALBUMIN 2.9 g/dL (3.5-5.0); ALKALINE PHOSPHATASE 212 U/L (38-126); ASPARTATE AMINO TRANSFERASE 51 U/L (17-59); BILIRUBIN,DIRECT 0.1 mg/dL (0.0-0.4); BILIRUBIN,TOTAL 0.9 mg/dL (0.2-1.3); BLOOD UREA NITROGEN 17 mg/dL (7-20); CARBON DIOXIDE 25 mmol/L (22-30); CHLORIDE 100 mmol/L (98-107); CREATINE KINASE 42 U/L (55-170); GLUCOSE 129 mg/dL (75-110); POTASSIUM 5.8 mmol/L (3.6-5.0); TOTAL PROTEIN 5.6 g/dL (6.3-8.2)
[2019-11-01 11:42] LABS: ANION GAP 4 (5-19)
[2019-11-01 11:49] LABS: ABSOLUTE LYMPHOCYTES# (MANUAL) 0.1 10^3/uL (0.5-4.7); ABSOLUTE MONOCYTES # (MANUAL) 0.6 10^3/uL (0.1-1.4); BASOPHILS % (MANUAL) 0 % (0-2); EOSINOPHILS % (MANUAL) 1 % (0-6); LYMPHOCYTES % (MANUAL) 1 % (13-45); MONOCYTES % (MANUAL) 7 % (3-13); PLATELET COMMENT ADEQUATE; RBC MORPHOLOGY COMMENT NORMO-CYTIC/CHROMIC; SEGMENTED NEUTROPHILS % (MAN) 91 % (42-78); TOTAL CELLS COUNTED 100; TOXIC GRANULATION SLIGHT; TOXIC VACUOLATION PRESENT
[2019-11-01] MEDS ORDERED: DEXAMETHASONE SOD PHOS INJ 10 MG/1 ML VIAL IV ONE (12:06)
[2019-11-01] MEDS ORDERED: LORAZEPAM INJ 2 MG/1 ML VIAL IV ONE (12:06)
--- NOTE | 2019-11-01 12:14 | RADIOLOGY REPORT (SQ) ---
EXAM DESCRIPTION: CHEST 2 VIEWS IMAGES COMPLETED DATE/TIME: 11/01/2019 10:56 am REASON FOR STUDY: Chest discomfort COMPARISON: CT chest, 10/19/2019. Chest radiograph, 10/18/2019. EXAM PARAMETERS: NUMBER OF VIEWS: two views TECHNIQUE: Digital Frontal and Lateral radiographic views of the chest acquired. RADIATION DOSE: NA LIMITATIONS: none FINDINGS: LUNGS AND PLEURA: Spiculated masslike opacity in the peripheral right lung is decreasing i n prominence since previous examination. Probable small right pleural effusion, stable. No definiti ve residual pneumothorax. Left lung remains clear. MEDIASTINUM AND HILAR STRUCTURES: No masses or contour abnormalities. HEART AND VASCULAR STRUCTURES: Heart normal size. No evidence for failure. BONES: No acute findings. HARDWARE: None in the chest. OTHER: Interval resolution of the subcutaneous emphysema. IMPRESSION: Decreasing masslike consolidation in the peripheral right lung and small right pleural e ffusion. TECHNICAL DOCUMENTATION: JOB ID: [id number] 2010 [employer]- All Rights Reserved Reading location - IP/workstation name: [email or web address]
--- NOTE | 2019-11-01 12:33 | RADIOLOGY REPORT (SQ) ---
EXAM DESCRIPTION: CT HEAD WITHOUT IMAGES COMPLETED DATE/TIME: 11/01/2019 11:50 am REASON FOR STUDY: sz COMPARISON: 03/07/2018 TECHNIQUE: Axial images acquired through the brain without intravenous contrast. Images reviewed wi th bone, brain and subdural windows. Additional sagittal and coronal reconstructions were generated. Images stored on PACS. All CT scanners at this facility use dose modulation, iterative reconstruction, and/or weight based d osing when appropriate to reduce radiation dose to as low as reasonably achievable (ALARA). [facility]: Dose Right [facility]: CareDose [facility]: Dose Right [facility]: Teradose 4D [facility]: Ludic Labs RADIATION DOSE: CT Rad equipment meets quality standard of care and radiation dose reduction techniq ues were employed. CTDIvol: 53.2 mGy. DLP: 1070 mGy-cm. mGy. LIMITATIONS: None. FINDINGS: Large geographic area of low attenuation in the left frontal lobe extending to the falx. There is associated cytotoxic edema resulting in about 5 mm of [id number] midline shift. Small ar eas of similar abnormal attenuation in the bilateral frontal lobes more superiorly. No hemorrhage or extra-axial fluid collection. Posterior fossa is normal. IMPRESSION: Abnormalities in both cerebral hemispheres. Primary differentials are multifocal infarc tion or neoplasm. EVIDENCE OF ACUTE STROKE: Uncertain. COMMENT: Discussed with Dr. Miguel. Quality ID # [id number]: Final reports with documentation of one or more dose reduction techniques (e.g., Au tomated exposure control, adjustment of the mA and/or kV according to patient size, use of iterative reconstruction technique) TECHNICAL DOCUMENTATION: JOB ID: [id number] 2010 [employer]- All Rights Reserved Reading location - IP/workstation name: [email or web address]
[2019-11-01] MEDS ORDERED: AMLODIPINE BESYLATE 10 MG TABLET PO SCH (16:00)
[2019-11-01] MEDS ORDERED: LISINOPRIL 5 MG TABLET PO SCH (16:00)
[2019-11-01] MEDS ORDERED: MYCOPHENOLATE MOFETIL 250 MG CAPSULE PO SCH (18:00)
[2019-11-01] MEDS ORDERED: CARVEDILOL 6.25 MG TABLET PO SCH (18:00)
[2019-11-01] MEDS ORDERED: TACROLIMUS ANHYDROUS 1 MG CAPSULE PO SCH (18:00)
[2019-11-01] MEDS ORDERED: LEVETIRACETAM 500 MG TABLET PO SCH (18:00)
[2019-11-01] MEDS ORDERED: SODIUM BICARBONATE 650 MG TABLET PO SCH (18:00)
[2019-11-01 20:58] LABS: APPEARANCE,URINE CLEAR; BILIRUBIN,URINE NEGATIVE (NEGATIVE); COLOR,URINE YELLOW; GLUCOSE, URINE NEGATIVE (NEGATIVE); KETONES,URINE NEGATIVE (NEGATIVE); PROTEIN,URINE >=500 mg/dL (NEGATIVE); URINE SPECIFIC GRAVITY 1.015; UROBILINOGEN,URINE NEGATIVE mg/dL (<2.0)
[2019-11-01 21:14] LABS: URINE AMPHETAMINES SCREEN NEGATIVE; URINE BARBITURATES SCREEN NEGATIVE; URINE BENZODIAZEPINES SCREEN NEGATIVE; URINE COCAINE SCREEN NEGATIVE; URINE MARIJUANA (THC) SCREEN NEGATIVE; URINE METHADONE SCREEN NEGATIVE; URINE PHENCYCLIDINE SCREEN NEGATIVE
[2019-11-01] MEDS ORDERED: ACETAMINOPHEN 325 MG TABLET PO ONE (21:14)
[2019-11-01] MEDS ORDERED: OXYCODONE-ACETAMINOPHEN 5-325 MG TABLET PO ONE (21:43)
[2019-11-01 22:39] VITALS: BP 124/90
[2019-11-02] MEDS ORDERED: LEVETIRACETAM 500 MG TABLET PO SCH (01:00)
--- NOTE | 2019-11-02 01:07 | EKG REPORT ---
SEVERITY:- OTHERWISE NORMAL ECG - SINUS RHYTHM BORDERLINE LEFT AXIS DEVIATION : Confirmed by: Gerda Talamantes 02-Nov-2019 01:06:34
== END 2019-11-01 22:50 | disposition short-term general hospital (02) ==
LOC: ER 10:27
DX: G93.9 Disorder of brain, unspecified (principal); R51 Headache; H53.149 Visual discomfort, unspecified; F17.200 Nicotine dependence, unspecified, uncomplicated; I10 Essential (primary) hypertension; E87.1 Hypo-osmolality and hyponatremia; G40.909 Epilepsy, unspecified, not intractable, without status epilepticus; Z79.899 Other long term (current) drug therapy; Z94.0 Kidney transplant status; Z86.69 Personal history of other diseases of the nervous system and sense organs
CPT/HCPCS: 93005; 99291; 96361; 96374; 96375; 36415; 87040; 82550; 83690; 85025; 85610; 85730; 80053; 81001; 80307; 71046; 70450; 93010; A9270 ×8; J2060; J7030; J1100; J7507; J7517

== ENCOUNTER 2019-11-25 18:29 | Emergency (ER) | payer MEDICARE, MEDICAID ==
--- NOTE | 2019-11-25 18:43 | ER Document Report ---
ED Medical Screen (RME) - General Chief Complaint: Testicular Swelling Stated Complaint: TESTICULAR SWELLING Time Seen by Provider: 11/25/19 18:38 Mode of Arrival: Ambulatory Information source: Patient Notes: 29-year-old male presented to ED for pain in his right arm since IV in the right arm, he states both of his testicles are the size of almost a centimeter size water balloon. Both of them are red the last 3 days. He states both legs are very edematous swollen leaking. He states he has had a kidney transplant. He states he had his transplant in 2016. 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 Denies any fevers right now. He states that swelling to his testicles and legs have been for the last 3 days. Blood and urine testicular ultrasound and you get seen by 1 of the docs okay we will get blood urine and testicular ultrasound and have patient seen by another provider. He states he has been off his rejection medications for about 2 weeks now according to Dr. michel. He states that the doctor told him he needed to build an immune system to work for his nocardia infection. On steroids dexamethasone which they are tapering down for the next month. December 10 he supposed to start on prednisone. I have greeted and performed a rapid initial assessment of this patient. A comprehensive ED assessment and evaluation of the patient, analysis of test results and completion of medical decision making process will be conducted by an additional ED providers. TRAVEL OUTSIDE OF THE [place].S. IN LAST 30 DAYS: No - Related Data Allergies/Adverse Reactions: No Known Allergies Allergy (Verified 11/25/19 18:38) Past Medical History - Past Medical History Cardiac Medical History: Reports: Hx Hypertension Neurological Medical History: Reports: Hx Seizures - last over 1 yr ago Renal/ Medical History: Reports: Hx End Stage Renal Disease. Denies: Hx Peritoneal Dialysis Psychiatric Medical History: Denies: Hx Depression Past Surgical History: Reports: Hx Kidney (Renal Surgery) - R transplant
--- NOTE | 2019-11-25 20:00 | RADIOLOGY REPORT (SQ) ---
EXAM DESCRIPTION: U/S SCROTUM W/DOPPLER IMAGES COMPLETED DATE/TIME: 11/25/2019 7:41 pm REASON FOR STUDY: Swollen testicles on steroids COMPARISON: None. TECHNIQUE: Static and realtime driscoll scale imaging of the scrotum and testes. Selected color Doppler and spectral images recorded to document blood flow. LIMITATIONS: None. FINDINGS: RIGHT: TESTICLE: Normal size. Normal echotexture. Normal blood flow. No mass. EPIDIDYMIS: Normal. HYDROCELE OR VARICOCELE: Small hydrocele. No varicocele. HERNIA OR EXTRA-TESTICULAR MASS: No. OTHER: Severe soft tissue swelling. LEFT: TESTICLE: Normal size. Normal echotexture. Normal blood flow. No mass. EPIDIDYMIS: Normal. HYDROCELE OR VARICOCELE: Small hydrocele. No varicocele. HERNIA OR EXTRA-TESTICULAR MASS: No. OTHER: Severe soft tissue swelling. IMPRESSION: Severe soft tissue swelling.Small bilateral hydrocele. . NO EVIDENCE OF TESTICULAR MASS OR TORSION. TECHNICAL DOCUMENTATION: JOB ID: [id number] 2010 [employer]- All Rights Reserved Reading location - IP/workstation name: [email or web address]
[2019-11-25 20:08] LABS: APPEARANCE,URINE CLEAR; BILIRUBIN,URINE NEGATIVE (NEGATIVE); COLOR,URINE YELLOW; GLUCOSE, URINE 50 mg/dL (NEGATIVE); KETONES,URINE TRACE mg/dL (NEGATIVE); LEUKOCYTE ESTERASE,URINE NEGATIVE (NEGATIVE); NITRITE,URINE NEGATIVE (NEGATIVE); PROTEIN,URINE NEGATIVE (NEGATIVE); URINE SPECIFIC GRAVITY 1.013
[2019-11-25 20:43] LABS: ALBUMIN 2.4 g/dL (3.5-5.0); ALKALINE PHOSPHATASE 114 U/L (38-126); ASPARTATE AMINO TRANSFERASE 79 U/L (17-59); BILIRUBIN,DIRECT 0.2 mg/dL (0.0-0.4); BILIRUBIN,TOTAL 0.4 mg/dL (0.2-1.3); BLOOD UREA NITROGEN 48 mg/dL (7-20); CALCIUM 9.4 mg/dL (8.4-10.2); CHLORIDE 109 mmol/L (98-107); GLUCOSE 103 mg/dL (75-110); HEMATOCRIT 28.5 % (37.9-51.0); HEMOGLOBIN 10.1 g/dL (13.5-17.0); MEAN CORPUSCULAR HEMOGLOBIN 30.2 pg (27.0-33.4); MEAN CORPUSCULAR HGB CONC 35.3 g/dL (32.0-36.0); MEAN CORPUSCULAR VOLUME 86 fl (80-97); PLATELET COUNT 120 10^3/uL (150-450); RED BLOOD COUNT 3.33 10^6/uL (4.35-5.55); RED CELL DISTRIBUTION WIDTH 13.7 % (11.5-14.0); TOTAL PROTEIN 4.6 g/dL (6.3-8.2)
[2019-11-25 20:48] LABS: CARBON DIOXIDE 21 mmol/L (22-30)
[2019-11-25 20:50] LABS: ANION GAP 1 (5-19)
[2019-11-25 20:52] LABS: ABSOLUTE LYMPHOCYTES# (MANUAL) 0.1 10^3/uL (0.5-4.7); ABSOLUTE MONOCYTES # (MANUAL) 0.3 10^3/uL (0.1-1.4); ANISOCYTOSIS 1+; BAND NEUTROPHILS % (MANUAL) 1 % (3-5); BASOPHILS % (MANUAL) 0 % (0-2); EOSINOPHILS % (MANUAL) 0 % (0-6); LYMPHOCYTES % (MANUAL) 2 % (13-45); MONOCYTES % (MANUAL) 4 % (3-13); POLYCHROMASIA 1+; SEGMENTED NEUTROPHILS % (MAN) 93 % (42-78); TOTAL CELLS COUNTED 100
[2019-11-25 20:53] LABS: BURR CELLS 1+; PLATELET COMMENT ADEQUATE; POIKILOCYTOSIS 1+
--- NOTE | 2019-11-25 21:18 | ER Document Report ---
ED General - General Chief Complaint: Testicular Swelling Stated Complaint: TESTICULAR SWELLING Time Seen by Provider: 11/25/19 18:38 Mode of Arrival: Ambulatory TRAVEL OUTSIDE OF THE [place].S. IN LAST 30 DAYS: No - HPI Notes: 29-year-old male presents with leg and testicle swelling. Upon initial entry into the room, patient immediately states that [facility] is [facility] and going immediately to [facility]. He states that all of his doctors are there hen he would rather receive his care there. He does not want to receive any care here. Eventually, patient does explain his symptoms. He recently was diagnosed with a brain abscess and underwent surgery, his abscess grew out Nocardia. His doctor has decided to discontinue his immunosuppressants, he has not had any medications in about 2 weeks. He is on immunosuppression for renal transplant which was done in 2016. He has noticed that he is now having swelling in his legs and testicles, he is having shortness of breath as well. - Related Data Allergies/Adverse Reactions: No Known Allergies Allergy (Verified 11/25/19 18:38) Past Medical History - General Information source: Patient - Social History Smoking Status: Current Every Day Smoker Chew tobacco use (# tins/day): No Frequency of alcohol use: Occasional Drug Abuse: None Family History: Hypertension, Other - ESRD in several members of the family Patient has homicidal ideation: No - Past Medical History Cardiac Medical History: Reports: Hx Hypertension Neurological Medical History: Reports: Hx Seizures - last over 1 yr ago Renal/ Medical History: Reports: Hx End Stage Renal Disease. Denies: Hx Peritoneal Dialysis Psychiatric Medical History: Denies: Hx Depression Past Surgical History: Reports: Hx Kidney (Renal Surgery) - R transplant Review of Systems - Review of Systems Constitutional: No symptoms reported EENT: No symptoms reported Cardiovascular: No symptoms reported Respiratory: Short of breath Gastrointestinal: No symptoms reported Genitourinary: denies: Dysuria Male Genitourinary: No symptoms reported Musculoskeletal: Leg swelling Skin: No symptoms reported Hematologic/Lymphatic: No symptoms reported Neurological/Psychological: No symptoms reported Physical Exam - Vital signs Vitals: Temp Pulse Resp BP Pulse Ox 98.3 F 88 18 125/64 97 11/25/19 18:38 11/25/19 18:38 11/25/19 18:38 11/25/19 18:38 11/25/19 18:38 Interpretation: Normal - General General appearance: Appears well In distress: None - HEENT Head: Normocephalic, Atraumatic Extraocular movements intact: Yes Pupils: PERRL - Respiratory Breath sounds: Normal - Cardiovascular Rhythm: Regular Heart sounds: Normal auscultation - Abdominal Tenderness: Nontender - Genitourinary Notes: Refused examination - Extremities General lower extremity: Edema - Pitting - Neurological Neuro grossly intact: Yes Cognition: Normal Orientation: AAOx4 - Psychological Associated symptoms: Normal affect - Skin Skin Temperature: Warm Course - Re-evaluation Re-evalutation: 11/25/19 21:38 Patient expresses essentially refusal to have care here. He states that he would like to leave the ER right now and go to [facility] he states that all of his doctors are up there. I have discussed these severity of his situations, hyperkalemia and fluid overloaded, possible kidney rejection, all of these things are immediately threatening to his life. He verbalized understanding. He states that he will drive immediately to [place]. I again attempted to convince patient to stay, he is adamantly refused. He understands that this is leaving AGAINST MEDICAL ADVICE. I have included his lab values in his discharge papers so that Amy may easily see them. Patient is alert and oriented, he is competent to make medical decisions. 11/25/19 21:58 I called the by the ED charge nurse and alerted him of patient's anticipated arrival in the emergency department - Vital Signs Vital signs: Temp Pulse Resp BP Pulse Ox 98 F 65 18 117/67 98 11/25/19 22:05 11/25/19 22:05 11/25/19 22:05 11/25/19 22:05 11/25/19 22:05 - Laboratory Result Diagrams: 11/25/19 20:02 11/25/19 20:02 Laboratory results interpreted by me: 11/25/19 11/25/19 11/25/19 19:27 20:02 20:02 RBC 3.33 L Hgb 10.1 L Hct 28.5 L Plt Count 120 L Seg Neuts % (Manual) 93 H Band Neutrophils % 1 L Lymphocytes % (Manual) 2 L Abs Lymphs (Manual) 0.1 L Sodium 131.3 L Potassium 6.0 H* Chloride 109 H Carbon Dioxide 21 L Anion Gap 1 L BUN 48 H Creatinine 1.83 H Est GFR ( Amer) 53 L Est GFR (MDRD) Non-Af 43 L AST 79 H ALT 172 H Total Protein 4.6 L Albumin 2.4 L Lipase 346.4 H Urine Glucose (UA) 50 H Urine Ketones TRACE H Urine Urobilinogen 4.0 H - Diagnostic Test Radiology reviewed: Image reviewed, Reports reviewed Discharge - Discharge Clinical Impression: Hyperkalemia Disposition: AGAINST MEDICAL ADVICE Additional Instructions: Hemoglobin 10, last checked 14 Potassium 6, sodium 131, creatinine 1.83 I have attached all lab values and ultrasound report from today's visit. As discussed you are leaving AGAINST MEDICAL ADVICE, please go immediately to [place]. Please return to the ED immediately for any worsening or concerning symptoms.
[2019-11-25 22:16] VITALS: BP 117/67
== END 2019-11-25 22:10 | disposition left against medical advice (07) ==
LOC: ER 18:29
DX: E87.5 Hyperkalemia (principal); E87.70 Fluid overload, unspecified; N43.3 Hydrocele, unspecified; N50.89 Other specified disorders of the male genital organs; M79.89 Other specified soft tissue disorders; R06.02 Shortness of breath; I10 Essential (primary) hypertension; Z94.0 Kidney transplant status; Z98.890 Other specified postprocedural states; Z53.29 Procedure and treatment not carried out because of patient's decision for other reasons; F17.200 Nicotine dependence, unspecified, uncomplicated
CPT/HCPCS: 36415; 76870; 80053; 81001; 83690; 85025; 93976; 99284

== ENCOUNTER 2019-12-19 12:29 | Emergency (ER) | payer MEDICARE, MEDICAID ==
--- NOTE | 2019-12-19 13:14 | ER Document Report ---
ED Medical Screen (RME) - General Chief Complaint: Abnormal Lab Results Stated Complaint: ABNORMAL LABS Time Seen by Provider: 12/19/19 13:01 Mode of Arrival: Ambulatory Information source: Patient Notes: 29-year-old male with significant comorbidities to include a recent brain surgery, kidney transplant, hypertension presenting to the emergency department with "abnormal labs". Patient's states that patient's hemoglobin and albumin are low and his potassium is high. Patient is followed by [facility] physicians, he has home health come to see him twice a week. Patient appears to be slightly altered, confused, does not know the names of his doctors or why they sent him here. states this is his baseline. I have greeted and performed a rapid initial assessment of this patient. A comprehensive ED assessment and evaluation of the patient, analysis of test results and completion of the medical decision making process will be conducted by additional ED providers. I have specifically instructed the patient or family members with the patient to immediately return to any nursing staff should anything change in the patient's condition or with their chief complaint. TRAVEL OUTSIDE OF THE [place] IN LAST 30 DAYS: No - Related Data Allergies/Adverse Reactions: No Known Allergies Allergy (Verified 12/19/19 12:59) Past Medical History - Social History Chew tobacco use (# tins/day): No Frequency of alcohol use: None Drug Abuse: None - Past Medical History Cardiac Medical History: Reports: Hx Hypertension Neurological Medical History: Reports: Hx Seizures - last over 1 yr ago Renal/ Medical History: Reports: Hx End Stage Renal Disease. Denies: Hx Peritoneal Dialysis Psychiatric Medical History: Denies: Hx Depression Past Surgical History: Reports: Hx Kidney (Renal Surgery) - R transplant Physical Exam - Vital signs Vitals: Temp Pulse Resp BP Pulse Ox 98.0 F 64 18 106/49 L 100 12/19/19 12:42 12/19/19 12:42 12/19/19 12:42 12/19/19 12:42 12/19/19 12:42 Course - Vital Signs Vital signs: Temp Pulse Resp BP Pulse Ox 98.0 F 64 18 106/49 L 100 12/19/19 12:42 12/19/19 12:42 12/19/19 12:42 12/19/19 12:42 12/19/19 12:42
[2019-12-19 13:37] LABS: APPEARANCE,URINE CLEAR; BILIRUBIN,URINE NEGATIVE (NEGATIVE); COLOR,URINE YELLOW; GLUCOSE, URINE NEGATIVE (NEGATIVE); KETONES,URINE NEGATIVE (NEGATIVE); LEUKOCYTE ESTERASE,URINE NEGATIVE (NEGATIVE); NITRITE,URINE NEGATIVE (NEGATIVE); PROTEIN,URINE NEGATIVE (NEGATIVE); UROBILINOGEN,URINE NEGATIVE mg/dL (<2.0)
[2019-12-19 15:04] LABS: ABSOLUTE EOSINOPHILS # (AUTO) 0.1 10^3/uL (0.0-0.6); ABSOLUTE LYMPHOCYTES (AUTO) 0.3 10^3/uL (0.5-4.7); ABSOLUTE MONOCYTES (AUTO) 0.2 10^3/uL (0.1-1.4); BASOPHILS % (AUTO) 0.9 % (0-2); HEMATOCRIT 20.9 % (37.9-51.0); LYMPHOCYTES % (AUTO) 12.2 % (13-45); MEAN CORPUSCULAR HEMOGLOBIN 30.7 pg (27.0-33.4); MEAN CORPUSCULAR HGB CONC 33.8 g/dL (32.0-36.0); MONOCYTES % (AUTO) 7.5 % (3-13); PLATELET COUNT 128 10^3/uL (150-450); RED CELL DISTRIBUTION WIDTH 18.4 % (11.5-14.0); SEGMENTED NEUTROPHILS % (AUTO) 77.4 % (42-78); TOTAL CELLS COUNTED % (AUTO) 100 %; WHITE BLOOD COUNT 2.6 10^3/uL (4.0-10.5)
[2019-12-19 15:10] LABS: MEAN CORPUSCULAR VOLUME 91 fl (80-97)
[2019-12-19 15:19] LABS: ALBUMIN 2.5 g/dL (3.5-5.0); ALKALINE PHOSPHATASE 181 U/L (38-126); ASPARTATE AMINO TRANSFERASE 206 U/L (17-59); BILIRUBIN,DIRECT 0.3 mg/dL (0.0-0.4); BILIRUBIN,TOTAL 0.3 mg/dL (0.2-1.3); BLOOD UREA NITROGEN 26 mg/dL (7-20); CALCIUM 9.1 mg/dL (8.4-10.2); GLUCOSE 101 mg/dL (75-110); TOTAL PROTEIN 4.5 g/dL (6.3-8.2)
[2019-12-19 15:24] LABS: CARBON DIOXIDE 18 mmol/L (22-30); CHLORIDE 116 mmol/L (98-107)
[2019-12-19 15:32] LABS: ANION GAP 3 (5-19); POTASSIUM 6.8 mmol/L (3.6-5.0)
[2019-12-19] MEDS ORDERED: NORMAL SALINE 250 ML IV PRN ×2 (15:51)
[2019-12-19] MEDS ORDERED: SODIUM POLYSTYRENE SULFONATE 15 GM/60 ML PO ONE (16:02)
[2019-12-19] MEDS ORDERED: CALCIUM GLUCONATE 1000 MG/10 ML INJ IV ONE (16:02)
[2019-12-19] MEDS ORDERED: NORMAL SALINE 1000 ML 1,000 ML IV ONE (16:02)
[2019-12-19] MEDS ORDERED: DEXTROSE 50%-WATER 25 GM/50 ML DISP.SYRIN IV ONE (16:31)
[2019-12-19] MEDS ORDERED: INSULIN REG, HUMAN 100 UNIT/ML 3 ML VIAL (PYX) IV ONE (16:31)
[2019-12-19] MEDS ORDERED: SULFAMETHOXAZOLE/TRIMETHOPRIM 800-160 MG TABLET PO ONE (17:37)
--- NOTE | 2019-12-19 18:26 | ER Document Report ---
ED General - General Chief Complaint: Abnormal Lab Results Stated Complaint: ABNORMAL LABS Time Seen by Provider: 12/19/19 13:01 Mode of Arrival: Ambulatory Information source: Patient TRAVEL OUTSIDE OF THE [place] IN LAST 30 DAYS: No - HPI Notes: Patient presents with complaints that his labs are abnormal. He states that he has a home health nurse who comes out regularly and checks on him. He states when the home health nurse daisha labs today she told him that his potassium was high and his hemoglobin was low and the need to go the emergency department. I also did obtain some history from the . The states she spoke with the primary care physician today, Dr. Kenney. She states that Dr. Frey informed her that patient should be brought on his low for further care. Patient denies any new bleeding. He denies any vomiting or diarrhea. 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 He is currently on antibiotics for that. Patient is also a renal transplant patient but states he is had no recent problems with his transplanted kidney. He denies any recent fevers. No vomiting or diarrhea. He states he has had some weakness but he does not have any excessive weakness. - Related Data Allergies/Adverse Reactions: No Known Allergies Allergy (Verified 12/19/19 12:59) Past Medical History - General Information source: Patient - Social History Smoking Status: Current Every Day Smoker Chew tobacco use (# tins/day): No Frequency of alcohol use: None Drug Abuse: None Family History: Hypertension, Other - ESRD in several members of the family Patient has homicidal ideation: No - Past Medical History Cardiac Medical History: Reports: Hx Hypertension Neurological Medical History: Reports: Hx Seizures - last over 1 yr ago Renal/ Medical History: Reports: Hx End Stage Renal Disease. Denies: Hx Peritoneal Dialysis Psychiatric Medical History: Denies: Hx Depression Past Surgical History: Reports: Hx Kidney (Renal Surgery) - R transplant Review of Systems - Review of Systems Constitutional: Weakness. denies: Fever Cardiovascular: denies: Chest pain, Palpitations Respiratory: denies: Cough, Short of breath -: Yes All other systems reviewed and negative Physical Exam - Vital signs Vitals: Temp Pulse Resp BP Pulse Ox 98.0 F 64 18 106/49 L 100 12/19/19 12:42 12/19/19 12:42 12/19/19 12:42 12/19/19 12:42 12/19/19 12:42 Interpretation: Normal - General General appearance: Appears well, Alert - HEENT Head: Normocephalic, Atraumatic Eyes: Normal Pupils: PERRL - Respiratory Respiratory status: No respiratory distress Chest status: Nontender Breath sounds: Normal Chest palpation: Normal - Cardiovascular Rhythm: Regular Heart sounds: Normal auscultation Murmur: No - Abdominal Inspection: Normal Distension: No distension Bowel sounds: Normal Tenderness: Nontender Organomegaly: No organomegaly - Back Back: Normal, Nontender - Extremities General upper extremity: Normal inspection, Nontender, Normal color, Normal ROM, Normal temperature General lower extremity: Normal inspection, Nontender, Normal color, Normal ROM, Normal temperature, Normal weight bearing. No: Michelle's sign - Neurological Neuro grossly intact: Yes Cognition: Normal Orientation: AAOx4 Anel Coma Scale Eye Opening: Spontaneous [place] Coma Scale Verbal: Oriented [place] Coma Scale Motor: Obeys Commands [place] Coma Scale Total: 15 Speech: Normal Motor strength normal: LUE, RUE, LLE, RLE Sensory: Normal - Psychological Associated symptoms: Normal affect, Normal mood - Skin Skin Temperature: Warm Skin Moisture: Dry Skin Color: Normal Course - Re-evaluation Re-evalutation: 12/19/19 18:24 Patient presents with high potassium and low hemoglobin. He states he has required multiple transfusions in the past. He states they have never been able to figure out why his hemoglobin drops. He is not had any new bloody stool or dark tarry stool. He has had not had any vomiting of blood. He states he occasionally will have some blood in his stool but this is a chronic problem due to having internal hemorrhoids. At this time it is unclear why his hemoglobin has dropped. However I have ordered blood transfusion. He also has evidence of acute renal injury with some elevation of his creatinine. His potassium is high. His QRS is not wide at this time. I will treat the patient though with all of the appropriate elevated potassium medications. I am also going to give the patient a bolus of IV fluid. I have discussed the patient with my electric furnace operator. I have also discussed the case with my hospitalist who at this time feels that the patient is too complicated especially in light of the fact that he had a recent brain abscess with brain surgery approximately 2 to 3 weeks ago. I am also currently waiting on the transplant physician from [facility] to return my phone call. I have also discussed the case with the patient and with the patient's by phone. 12/19/19 19:50 I have called and discussed the case with the transplant specialist advised and as well as the emergency department advised in. Patient has been accepted for transfer. I have called and discussed the case with the and with the patient who understand the need for transfer at this time. - Vital Signs Vital signs: Temp Pulse Resp BP Pulse Ox 98.0 F 64 18 106/49 L 100 12/19/19 12:42 12/19/19 12:42 12/19/19 12:42 12/19/19 12:42 12/19/19 12:42 - Laboratory Result Diagrams: 12/19/19 14:45 12/19/19 14:45 Laboratory results interpreted by me: 12/19/19 12/19/19 12/19/19 13:17 14:45 14:45 WBC 2.6 L RBC 2.30 L Hgb 7.0 L Hct 20.9 L RDW 18.4 H Plt Count 128 L Lymph % (Auto) 12.2 L Absolute Lymphs (auto) 0.3 L Sodium 136.7 L Potassium 6.8 H* Chloride 116 H Carbon Dioxide 18 L Anion Gap 3 L BUN 26 H Creatinine 1.89 H Est GFR ( Amer) 51 L Est GFR (MDRD) Non-Af 42 L POC Glucose AST 206 H ALT 197 H Alkaline Phosphatase 181 H Total Protein 4.5 L Albumin 2.5 L Crossmatch See Detail 12/19/19 17:08 WBC RBC Hgb Hct RDW Plt Count Lymph % (Auto) Absolute Lymphs (auto) Sodium Potassium Chloride Carbon Dioxide Anion Gap BUN Creatinine Est GFR ( Amer) Est GFR (MDRD) Non-Af POC Glucose 126 H AST ALT Alkaline Phosphatase Total Protein Albumin Crossmatch - EKG Interpretation by Me EKG shows normal: Sinus rhythm Rate: Normal - 61 Rhythm: NSR [place]/QRS: No: Right axis deviation, Left axis deviation Discharge - Discharge Clinical Impression: Hyperkalemia, EMA (acute kidney injury), Immunocompromised state due to drug therapy, Smoker, History of hepatitis C virus infection Anemia Qualifiers: Anemia type: due to chronic kidney disease Chronic kidney disease stage: unspecified stage Qualified Code(s): N18.9 - Chronic kidney disease, unspecified; D63.1 - Anemia in chronic kidney disease Condition: Serious Disposition: 1Lay
--- NOTE | 2019-12-19 19:07 | Progress Note ---
Provider Note Provider Note: ER provider Dr. Ackerman discussed the case with me while patient who presented for evaluation of abnormal labs as noted by home nurse. Notably patient is a highly complex patient was received his complex care at [facility]. The complexity of his case include recent brain surgery done 3 weeks ago for t reatment of brain abscess, currently on IV antibiotics at home initiated at [facility], recent complicated parapneumonic effusion, renal transplant and anemia. Lab work is notable for significant anemia with recent hemoglobin drop over the past 2 months from 14 to 7. States he gets transfused at [facility]. He does not know what work-up has been done to address his anemia but does not recall having endoscopic evaluation. Lab work also reveals severe hyperkalemia of 6.8 and mild renal failure. 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 I recommended initiation of emergency therapy including calcium gluconate, insulin IV as well as D50 amp and repeating BMP. Ultimately, this needs to be addressed by his renal transplant char dust cleaner and salvager especially as this is secondary to his tacrolimus. Without this being addressed, it will continue to recur and could lead to fatal event. Lab work shows worsening transaminitis. This is worsening compared to his recent liver enzymes. I suspect this may be secondary to 1 of the IV antibiotics that he was started on for treatment of his brain abscess. Patient does not know what antibiotics he is on. All the records at [facility] and this was instituted by the neurosurgeon/neurologist who treated his brain abscess. His antibiotics will need to be adjusted. Given the complexity of patient's medical conditions and his very recent brain s urgery and potential need to alter his IV antibiotic regimen for his brain abscess, it is my opinion that it is in patient's best interest that he be transferred to [facility] where patient can be managed in consultation with his transplant char dust cleaner and salvager, infectious disease, and neurosurgery/neurology who are already involved in his case to determine the best course of action for his chronic conditions. This also helps for better continuity of care given its complexity. I have discussed this with patient and he has agreed to be transferred. I have also discussed this with ER provider who will contact tertiary facility for transfer.
--- NOTE | 2019-12-19 20:47 | EKG REPORT ---
SEVERITY:- NORMAL ECG - SINUS RHYTHM : Confirmed by: Franklin Velazquez MD 19-Dec-2019 20:46:52
--- NOTE | 2019-12-19 21:21 | ER Document Report ---
Doctor's Note Notes: 12/19/19 21:21 Patient picked up by ALS for transfer, patient's vitals have been stable, patient is tolerating blood transfusion well, patient remains appropriate for transfer at this time. Gave note to RN for a ALS crew to continue blood transfusion in route to outside hospital.
[2019-12-19 21:28] VITALS: BP 122/75
== END 2019-12-19 21:14 | disposition short-term general hospital (02) ==
LOC: ER 12:29
DX: E87.5 Hyperkalemia (principal); N17.9 Acute kidney failure, unspecified; N18.9 Chronic kidney disease, unspecified; D63.1 Anemia in chronic kidney disease; F17.210 Nicotine dependence, cigarettes, uncomplicated; Z94.0 Kidney transplant status; Z79.899 Other long term (current) drug therapy; Z86.19 Personal history of other infectious and parasitic diseases
CPT/HCPCS: 93005; 99285; 96375; 96365; 96366; 86900; 86901; 36415; 36430; 86850; 82962; 80307; 83735; 85025; 80053; 81001; 86920; 93010; P9016; J0610; J3490; A9270 ×3; J7030; J1815